=== PATIENT | female | born 1965 | race Caucasian/White ===

== ENCOUNTER 2019-10-14 21:15 | Emergency (ER) | payer SELFPAY ==
[2019-10-14 21:27] VITALS: BP 143/96; PULSE 90; RESP 18; TEMP 37.1; O2SAT 95; BMI 30.4
--- NOTE | 2019-10-14 22:00 | PC.NURSE ---
Introduced self to patient and initiated vital signs. Pt is A&O x 4 and agreeable. Pt states that the reason for the ER visit today is due to ear pain. Pt also complaining of dizziness. Reassured patient of needs and will continue to monitor. Provider at bedside.
--- NOTE | 2019-10-14 22:02 | W.ED.GENADLT ---
HPI - General Adult General: Chief complaint: Ear Stated complaint: earache/n/v Time Seen by Provider: 10/14/19 21:54 History of Present Illness: HPI narrative: Patient with a history of earache started 3 to 4 days ago continually getting worse through the last 3 days now hurts pretty bad affecting her balance. MD complaint: Ear infection Onset (ago): day(s) Location: left Radiation: non-radiation Severity scale (1-10): 8 Quality: aching Pain Consistency: constant Relieving factors: none Exacerbating factors: none Associated symptoms: Reports no associated symptoms; Deny chest pain, dyspnea, headache(s), nausea, rash or vomiting Review of Systems Const: Denies: fever, chills or body aches Eyes: Denies: change in vision or blurry vision ENMT: Reports: ear pain (Left); Denies: throat pain or nasal congestion Card: Denies: chest pain or shortness of breath on exertion Resp: Denies: shortness of breath, productive cough or non-productive cough GI: Denies: abdominal pain, nausea or vomiting Musc: Denies: extremity pain Skin/Breast: Denies: rash Neuro: Reports: dizziness (When up and about); Denies: headache Psych: Denies: anxiety or depression Tyler/Lymph: Denies: easy bruising PFSH ED PFSH: Statuses (acute, chronic, etc) shown below reflect problem list status as previously entered and may not be historically accurate Social History Smoking and tobacco status: never smoked Physical Exam Const: COMMON NORMALS: no apparent distress, average body habitus and oriented x3 HENMT: COMMON NORMALS: normocephalic HEAD & SCALP: normal to inspection and normocephalic FACE & SINUS: normal facial exam EXTERNAL AUDITORY CANAL: EAC abnormal EAC laterality: left Details: edema, EAC tenderness and otic discharge TYMPANIC MEMBRANE: TM normal on the right and TM normal on the left (Whitish discharge all about the tympanic membrane) Eye: COMMON NORMALS: conjunctivae normal GENERAL EYE: normal appearance of both eyes CONJUNCTIVA: Yes conjunctivae normal Neck/C-Spine: COMMON NORMALS: no JVD Chest: COMMONS NORMALS: inspection of chest normal Resp: COMMON NORMALS: normal respiratory effort and clear to auscultation bilaterally AUSCULTATION: clear to auscultation bilaterally Cardio: COMMON NORMALS: no JVD, regular rate and regular rhythm RATE: regular rate RHYTHM: regular rhythm GI: COMMON NORMALS: normal to inspection, nondistended, normoactive bowel sounds Extremity: COMMON NORMALS: normal to inspection and full ROM Neuro: COMMON NORMALS: oriented x3 Course Vital Signs: Vital signs: Vital Signs Temperature 98.7 F 10/14/19 21:27 Pulse Rate 90 10/14/19 21:27 Respiratory Rate 18 10/14/19 21:27 Blood Pressure 143/96 10/14/19 21:27 Pulse Oximetry 95 10/14/19 21:27 Coding Level of Care Code ED Media Services Director for Edgar Abdi
[2019-10-14] MEDS: acetaminophen-codeine 300-30mg Tablet 1 TAB PO (23:04)
[2019-10-14] MEDS: ciprofloxacin-dexameth Otic Susp 7.5 mL Btl 4 DROP EAR-LEFT (23:08)
[2019-10-14 23:40] VITALS: BP 109/79; PULSE 109; O2SAT 95
== END 2019-10-14 23:40 | disposition home or self-care (01) ==
PROVIDERS: Emergency Provider Nurse Practitioner Family
DX: H92.02 Otalgia, left ear (principal); R11.2 Nausea with vomiting, unspecified
CPT/HCPCS: 99281; 99282; J0696; J2001

== ENCOUNTER 2019-11-12 07:47 | Outpatient (CLI) | payer SELFPAY ==
--- NOTE | 2019-11-12 08:10 | MR_ITS ---
WS: [id number] MRI CERVICAL SPINE NONCONTRAST TECHNIQUE: Sagittal T1, T2 and STIR imaging. Axial T2, gradient, and fiesta imaging. CLINICAL INFORMATION: NECK PAIN COMPARISON: None. FINDINGS: Straightening of the normal cervical lordosis. Mild disc bulging C5-6. Cord signal is normal. C2-C3: Normal. C3-C4: Normal. C4-C5: No significant disc bulging. Mild right bony foraminal narrowing. Mild facet arthropathy. Spin al canal is patent. C5-C6: Disc osteophyte complex with endplate ridging. Small central protrusion with mild central erik l stenosis. Mild bilateral bony foraminal narrowing. Mild facet arthropathy. C6-C7: Disc osteophyte complex endplate ridging. Mild bilateral bony foraminal narrowing. Spinal erik l is patent. C7-T1: Normal. Visualized brain stem structures: Normal. Prevertebral soft tissues: Normal. MR/MR cervical spin wo con* [id number] IMPRESSION: 1. Straightening of the normal cervical lordosis with mild disc bulging worse at C5-C6. 2. Disc osteophyte complex C5-C6 with a small central disc osteophyte protrusi on. Mild central canal stenosis. 3. Mild bony foraminal narrowing more prominent at right C4-C5, bilateral C5-C 6, and left C6-C7.
--- NOTE | 2019-11-12 08:10 | MR_ITS ---
WS: [id number] MRI LUMBAR SPINE NONCONTRAST TECHNIQUE: Sagittal T1, T2 and STIR imaging. Axial T1 and T2 imaging. CLINICAL INFORMATION: LUBOSACRAL PAIN COMPARISON: None. FINDINGS: Mild lumbar curve. No acute compression. No high-grade central canal stenosis. Mild endplate degenera tive changes L4-5. L1-L2: Prominent left foraminal protrusion with moderate left foraminal narrowing and contact of the left L1 nerve root. Spinal canal and foramen are patent. L2-L3: Small left foraminal protrusion with mild left foraminal narrowing and slight contact of the e xiting left L2 nerve root. Spinal canal and right foramen are patent. L3-L4: Mild annular bulging with slight effacement of ventral thecal sac. Narrowing of the right suba rticular recess. Small right foraminal protrusion contacts the exiting right L3 nerve root with moder ate right foraminal narrowing. Left foramen is patent. L4-L5: Endplate degenerative changes. Mild annular bulging. Spinal canal and foramen are patent. Mild facet arthropathy. L5-S1: Tiny central protrusion with slight encroachment on the traversing S1 nerve roots without sign ificant impingement. Osteophytic ridging. Mild to moderate left and no significant right foraminal na rrowing. Visualized pelvic bony structures: Normal. Paravertebral soft tissues: Normal. MR/MR lumbar spine wo con* [id number] IMPRESSION: 1. Mild lumbar curve. No acute compression. 2. Prominent left proximal foraminal protrusion L1-2 with mild to moderate lef t foraminal narrowing contacts the exiting left L1 nerve root. 3. Small left foraminal protrusion L2-3 with mild left foraminal narrowing and slight contact of the exiting left L2 nerve root. 4. Small right foraminal protrusion L3-4 contacts the exiting L3 nerve root wi th moderate right foraminal narrowing. 5. Narrowing of the right L3-4 subarticular recess with encroachment traversin g right L4 nerve root. 6. Tiny shallow central protrusion L5-S1 with slight contact of the left S1 ne rve root. Mild to moderate left L5-S1 foraminal narrowing.
--- NOTE | 2019-11-12 08:10 | MR_ITS ---
WS: [id number] MRI RIGHT SHOULDER NONCONTRAST TECHNIQUE: Sagittal T2, coronal T1, T2 and proton density imaging. Axial gradient PDE imaging. CLINICAL INFORMATION: SHOULDER PAIN COMPARISON: Chest radiograph 2010 FINDINGS: Lobulated T2 hyperintense lesion with heterogeneous signal abnormality involving the proximal humerus measuring 5.2 x 1.8 cm consistent with benign chondroma. This appears to have been present on the est radiograph 2009. Associated susceptibility artifact. No acute fractures. Moderate degenerative arthritis at the AC joint. Mild downsloping of the acromion. Slight undersurfa ce spurring. Rotator cuff is intact. Normal supraspinatus. Tiny undersurface tear at the far anterior supraspinous insertion. Normal infraspinatus. Normal teres minor. Normal subscapularis. No full-thic kness rotator cuff tears. Biceps tendon is intact within the bicipital groove. Normal biceps labral anchor. Glenoid labrum appe ars grossly normal. Normal soft tissues. MR/MR shoulder RT wo con* [id number] IMPRESSION: 1. Prominent chondromalacia involving the proximal humeri as was present in 06 07. 2. Moderate degenerative arthritis AC joint with mild downsloping of the acrom ion. Rotator cuff is intact. No full-thickness rotator cuff tears. 3. Tiny undersurface tear at the far anterior supraspinatus insertion. 4. Normal biceps tendon in the bicipital groove. 5. Glenoid labrum appears grossly intact.
== END 2019-11-12 07:48 | disposition home or self-care (01) ==
LOC: RADWPI 07:51
PROVIDERS: PCP Nurse Practitioner Family; Visit Provider Nurse Practitioner Family
DX: M94.211 Chondromalacia, right shoulder (principal); M19.011 Primary osteoarthritis, right shoulder; M51.26 Other intervertebral disc displacement, lumbar region; M51.27 Other intervertebral disc displacement, lumbosacral region; M50.222 Other cervical disc displacement at C5-C6 level; M25.511 Pain in right shoulder
CPT/HCPCS: 72141; 72148; 73221

== ENCOUNTER → 2019-11-25 13:51 | Outpatient (BNVA) | payer SELFPAY | PROVIDERS: PCP Nurse Practitioner Family; Referring Provider Nurse Practitioner Family; Visit Provider Orthopaedic Surgery | DX: M25.511 Pain in right shoulder (principal) | CPT/HCPCS: 73030 ==

== ENCOUNTER 2020-01-08 14:51 | Emergency (ER) | payer SELFPAY ==
[2020-01-08 15:02] VITALS: BP 146/88; PULSE 96; RESP 15; TEMP 37; O2SAT 95; BMI 31.8
--- NOTE | 2020-01-08 15:24 | XR_ITS ---
WS: [id number] ANKLE RIGHT TECHNIQUE: 3 views of the right ankle CLINICAL INFORMATION: fall/pain COMPARISON: None. FINDINGS: Mild soft tissue edema. Tiny avulsion at the tip of the medial malleolus. Normal ankle mortise. Achil les insertion enthesophyte. XR/XR ankle RT min 3V* [id number] IMPRESSION: Tiny avulsion at the tip of the medial malleolus.
--- NOTE | 2020-01-08 16:20 | ED_ITS ---
HPI - Extremity Injury (Lower) General: Chief Complaint: Extremity Injury, Lower Stated Complaint: right leg pain Time Seen by Provider: 01/08/20 16:01 Source: patient Mode of arrival: ambulatory Limitations: no limitations History of Present Illness: HPI Narrative: Patient is a 54-year-old female presents to ED today with complaints of right ankle pain after sliding down a ramp. States she tripped over her dog and then slid down. She is ambulatory but with a limp. No other injury sustained. MD complaint: ankle injury Onset (ago): hour(s) Injury: Left: ankle Type of Injury: inversion Place: home Severity: moderate Relieving factors: immobilization Exacerbating factors: weight bearing, movement and palpation Context: fall and other (twisted) Associated symptoms: Reports no associated symptoms Other symptoms: none Review of Systems Card: Denies: chest pain, palpitations, irregular heart rhythm, edema, lightheadedness, syncope or pre-syncope Resp: Denies: shortness of breath GI: Denies: nausea or vomiting Musc: Reports: joint pain and joint swelling; Denies: neck pain, back pain, extremity pain or extremity swelling Neuro: Denies: numbness in extremities or changes in sensation PFS ED PFSH: Social History Smoking and tobacco status: never smoked Alcohol intake: never Lives independently: Yes Household members: spouse Housing: House Marital status: Current occupational status: employed Current occupation: [employer] Current occupational exposures/hazards: No History of recent travel: No Current gender identity: Female Physical Exam Const: COMMON NORMALS: no apparent distress, oriented x3, no limitations, healthy appearing and alert ORIENTATION/CONSCIOUSNESS: Yes oriented to person, Yes oriented to place and Yes oriented to time Neck/C-Spine: CERVICAL SPINE: Yes cervical ROM normal, No pain with cervical ROM, No cervical spine tenderness and No paracervical muscle tenderness Resp: COMMON NORMALS: normal respiratory effort and clear to auscultation bilaterally AUSCULTATION: clear to auscultation bilaterally Cardio: COMMON NORMALS: regular rate and regular rhythm RATE: regular rate RHYTHM: regular rhythm Back/Pelvis: COMMON NORMALS: thoracic and lumbar spine normal to inspection, no thoracic nor lumbar tenderness and thoraco-lumbar ROM normal Extremity: OTHER: TTP, swelling, and beginning ecchymosis to R lateral malleolus Neuro: GUSTAVO COMA SCALE: document GCS findings Gustavo coma scale eye opening: Spontaneous Gustavo coma scale verbal response: Orientated Gustavo coma scale motor response: Obey commands [place] coma scale total score: 15 COMMON NORMALS: oriented x3, moves all extremities, no focal motor deficits and no sensory deficits noted SENSORIUM/ORIENTATION: Yes alert, Yes oriented to person, Yes oriented to place and Yes oriented to time Course Vital Signs: Vital signs: Vital Signs Temperature 98.6 F 01/08/20 15:02 Pulse Rate 96 01/08/20 15:02 Respiratory Rate 15 01/08/20 15:02 Blood Pressure 146/88 01/08/20 15:02 Pulse Oximetry 95 01/08/20 15:02 MDM - Extremity Injury (Lower) Imaging Data^: R ankle XR: Radiologist's impression: [address] [place] [address] XRay Report Signed Patient: Ryanne Harvey Unit #: [id number] : [id number] Age/Sex: 54 / F ADM Date: 01/08/20 Loc: ER Room/Bed: Attending Dr: Ordering Provider/Ordering MD: Tanner Borja DO Date of Service: 01/08/20 Procedure(s): XR ankle RT min 3V* [id number] Accession Number(s): [id number] Report Number: [id number] WS: [id number] ANKLE RIGHT TECHNIQUE: 3 views of the right ankle CLINICAL INFORMATION: fall/pain COMPARISON: None. FINDINGS: Mild soft tissue edema. Tiny avulsion at the tip of the medial malleolus. Normal ankle mortise. Achilles insertion enthesophyte. XR/XR ankle RT min 3V* [id number] IMPRESSION: Tiny avulsion at the tip of the medial malleolus. Dictated By: Jake Rojo MD Signed By: Jake Rojo MD Signed Date/Time: 01/08/201650 DD/ 49 Discharge Plan Discharge Patient Disposition: Home, Self-Care Clinical Impression: Avulsion fracture of medial malleolus Qualifiers: Encounter type: initial encounter Fracture type: closed Laterality: right Qualified Code(s): S82.51XA - Displaced fracture of medial malleolus of right tibia, initial encounter for closed fracture Condition: Stable Prescriptions: No Action No Known Home Medications RF: 0 Discharge Orders: Discharge Order (Routine); Ordered 01/08/20 Ordered By: Anne Jane Referrals: [facility] [Other] Tracey Rodgers FNP [Primary Care Provider] - Discharge Activity: Use walker/crutches as instructed Patient Instructions: Ankle Fracture (ED) Activity Restrictions/Additional Instructions: Case management will contact you to set you up with orthopedics. Coding Level of Care Code ED Hollow Handle Knife Assembler for Edgar Fwd Exam Detailed
--- NOTE | 2020-01-09 09:08 | DCPLANNER ---
commercial lines account manager had message to schedule a follow up appointment for patient with ortho. commercial lines account manager called the ortho clinic, spoke with Pat. commercial lines account manager gave clinic patients information to clinic, was told that patients information would be printed and reviewed. Clinic will call residential case manager and patient with appointment information.
--- NOTE | 2020-01-13 09:08 | DCPLANNER ---
Patient has a follow up appointment scheduled for Monday, January 13, [address] at 9:[address] Newby. Clinic will call patient with appointment information.
--- NOTE | 2020-02-03 15:19 | DCPLANNER ---
Patient did attend appointment scheduled for 01.13.20 with ortho.
== END 2020-01-08 17:20 | disposition home or self-care (01) ==
PROVIDERS: Emergency Provider Physician Assistant; PCP Nurse Practitioner Family
DX: S82.51XA Displaced fracture of medial malleolus of right tibia, initial encounter for closed fracture (principal); W01.0XXA Fall on same level from slipping, tripping and stumbling without subsequent striking against object, initial encounter
CPT/HCPCS: 12345; 29515; 73610; 99282; 99283

== ENCOUNTER → 2020-01-13 10:29 | Outpatient (BNVA) | payer SELFPAY | PROVIDERS: PCP Nurse Practitioner Family; Visit Provider Podiatrist Foot & Ankle Surgery | DX: S82.891A Other fracture of right lower leg, initial encounter for closed fracture (principal); M79.604 Pain in right leg; S82.444A Nondisplaced spiral fracture of shaft of right fibula, initial encounter for closed fracture; S82.54XA Nondisplaced fracture of medial malleolus of right tibia, initial encounter for closed fracture; X58.XXXA Exposure to other specified factors, initial encounter | CPT/HCPCS: 73590 ==

== ENCOUNTER 2020-01-13 12:59 | Outpatient (CLI) | payer SELFPAY | END 2020-01-13 13:00 | disposition home or self-care (01) | LOC: SPT 12:59 | PROVIDERS: PCP Nurse Practitioner Family; Visit Provider Podiatrist Foot & Ankle Surgery | DX: Z46.89 Encounter for fitting and adjustment of other specified devices (principal); S82.891D Other fracture of right lower leg, subsequent encounter for closed fracture with routine healing; X58.XXXD Exposure to other specified factors, subsequent encounter | CPT/HCPCS: L4361 ==

== ENCOUNTER → 2020-01-28 09:28 | Outpatient (BNVA) | payer SELFPAY | PROVIDERS: PCP Nurse Practitioner Family; Visit Provider Podiatrist Foot & Ankle Surgery | DX: S82.839A Other fracture of upper and lower end of unspecified fibula, initial encounter for closed fracture (principal); M79.604 Pain in right leg; M25.571 Pain in right ankle and joints of right foot; S82.54XA Nondisplaced fracture of medial malleolus of right tibia, initial encounter for closed fracture; X58.XXXA Exposure to other specified factors, initial encounter | CPT/HCPCS: 73590; 73610 ==

== ENCOUNTER → 2020-02-19 15:20 | Outpatient (BNVA) | payer SELFPAY | PROVIDERS: PCP Nurse Practitioner Family; Visit Provider Podiatrist Foot & Ankle Surgery | DX: S82.54XA Nondisplaced fracture of medial malleolus of right tibia, initial encounter for closed fracture (principal); S82.401A Unspecified fracture of shaft of right fibula, initial encounter for closed fracture; X58.XXXA Exposure to other specified factors, initial encounter | CPT/HCPCS: 73590; 73610 ==

== ENCOUNTER → 2020-03-11 09:39 | Outpatient (BNVA) | payer SELFPAY | PROVIDERS: PCP Nurse Practitioner Family; Visit Provider Podiatrist Foot & Ankle Surgery | DX: S82.54XD Nondisplaced fracture of medial malleolus of right tibia, subsequent encounter for closed fracture with routine healing (principal); S82.831D Other fracture of upper and lower end of right fibula, subsequent encounter for closed fracture with routine healing; W01.0XXD Fall on same level from slipping, tripping and stumbling without subsequent striking against object, subsequent encounter; M25.571 Pain in right ankle and joints of right foot | CPT/HCPCS: 73590; 73610 ==

== ENCOUNTER → 2020-04-01 15:12 | Outpatient (BNVA) | payer SELFPAY | PROVIDERS: PCP Nurse Practitioner Family; Visit Provider Podiatrist Foot & Ankle Surgery | DX: S82.54XD Nondisplaced fracture of medial malleolus of right tibia, subsequent encounter for closed fracture with routine healing; M25.571 Pain in right ankle and joints of right foot; S82.831D Other fracture of upper and lower end of right fibula, subsequent encounter for closed fracture with routine healing; W01.0XXD Fall on same level from slipping, tripping and stumbling without subsequent striking against object, subsequent encounter | CPT/HCPCS: 73610 ==

== ENCOUNTER 2020-05-02 19:39 | Emergency (ER) | payer SELFPAY ==
[2020-05-02 19:59] VITALS: BP 118/81; PULSE 104; RESP 16; TEMP 36.9; O2SAT 98; BMI 30.1
--- NOTE | 2020-05-02 20:42 | W.ED.SKABFB ---
HPI - Skin/Abscess/Foreign Bdy General: Chief complaint: Skin/Abscess/Foreign Body Stated complaint: rash Time Seen by Provider: 05/02/20 20:41 History of Present Illness: HPI narrative: Patient comes to the ED with pruritic rash. Symptoms started 2 days ago after being exposed to some poison aggie. Rashes on both right and left upper and lower extremities and neck. She has tried various vigc-ajz-ihfqdxw remedies such as calamine lotion, hydrocortisone cream and Benadryl. They have not provided any relief and rash continues to spread. Denies any shortness of breath, fever, chills, nausea/vomiting, bladder or bowel symptoms. Associated symptoms: Deny chills, fever(s), nausea or vomiting Review of Systems Const: Denies: fever(s), chills or fatigue Eyes: Denies: change in vision or eye discomfort ENMT: Denies: throat pain, odynophagia, nasal discharge or nasal congestion Card: Denies: chest pain, palpitations, edema, swelling of feet/ankles, dyspnea on exertion or orthopnea Resp: Denies: dyspnea, productive cough or non-productive cough GI: Denies: abdominal pain, nausea, vomiting, diarrhea, constipation or hematochezia : Denies: flank pain, dysuria or hematuria Musc: Denies: neck pain, back pain or extremity swelling Skin/Breast: Reports: rash (pruritic rash) and pruritus; Denies: new lesions Neuro: Denies: headache(s), numbness in extremities or weakness in extremities PFSH ED PFSH: Medical History Hyperlipemia Surgical History Hx of appendectomy Hx of tubal ligation Family History Father , age 33 Cancer Social History Smoking and tobacco status: never smoked Alcohol intake: never Substance/Drug Use: never Lives independently: Yes Household members: spouse Housing: House Marital status: Current occupational status: employed Current occupation: [employer] Current occupational exposures/hazards: No History of recent travel: No Current gender identity: Female Physical Exam Const: COMMON NORMALS: no acute distress, patient oriented x3, healthy appearing and alert GENERAL APPEARANCE: cooperative and comfortable HENMT: COMMON NORMALS: normocephalic HEAD & SCALP: normocephalic MOUTH: Normal oral and palatal mucosa present THROAT: posterior oropharynx normal and uvula midline Neck/C-Spine: COMMON NORMALS: supple GENERAL: Yes normal visual inspection Resp: COMMON NORMALS: normal respiratory effort, No retractions, No use of accessory muscles and clear to auscultation bilaterally AUSCULTATION: clear to auscultation bilaterally Cardio: COMMON NORMALS: regular rate, regular rhythm, S1 normal heart sound present, S2 normal heart sound present, No gallops present (Cardio), No clicks present (Cardio), No murmurs present (Cardio) and Peripheral pulses 2+ throughout RATE: regular rate RHYTHM: regular rhythm HEART SOUNDS: S1 normal heart sound present and S2 normal heart sound present PERIPHERAL PULSES: Peripheral pulses 2+ throughout GI: COMMON NORMALS: Normal to inspection, nondistended, normoactive bowel sounds present, Soft to palpation, non-tender and no masses PALPATION: Yes Soft to palpation : COMMON NORMALS: Yes no CVA tenderness BLADDER/KIDNEY EXAM: Yes no CVA tenderness Back/Pelvis: COMMON NORMALS: no CVA tenderness Extremity: NARRATIVE EXTREMITY EXAM: Patient just has pruritic rash on both upper and lower left and right extremities. GENERAL: Yes normal exam except as noted Neuro: COMMON NORMALS: patient oriented x3 and moves all extremities SENSORIUM/ORIENTATION: Yes alert Skin: NARRATIVE SKIN EXAM: Patient has erythemic, linear and pruritic rash on both right and left upper and lower extremities and on her neck. A couple of the lesions on the arm and leg appear to have some weeping and oozing. Rash looks very much like poison aggie or sumac contact dermatitis. Course Vital Signs: Vital signs: Vital Signs Temperature 98.5 F 05/02/20 19:59 Pulse Rate 100 05/02/20 21:37 Respiratory Rate 18 05/02/20 21:37 Blood Pressure 127/83 05/02/20 21:37 Pulse Oximetry 98 05/02/20 21:37 MDM - Skin/Abscess/Foreign Bdy MDM Narrative: Medical decision making narrative: Patient is a 54-year-old female who comes to the ED with pruritic rash after poison aggie contact. Patient was not in any acute distress or pain. Rash was on both right and left upper and lower extremities and on her neck. Rash appeared like poison aggie and was linear raised erythema. Patient was given IM triamcinolone and sent home with prescription of prednisone. She was told to follow-up with her PCP in 7 to 10 days. Return to ED precautions given. Patient understood and agreed with plan. Discharge Plan Discharge Patient Disposition: Home Clinical Impression: Allergic dermatitis due to poison aggie Condition: Stable Prescriptions: New prednisone 50 mg tablet 50 mg PO DAILY 5 Days Qty: 5 RF: 0 No Action (DME) CAM WALKER Qty: 1 RF: 0 Discharge Orders: Discharge Order (Routine); Ordered 05/02/20 Ordered By: Pedro Sr Referrals: Tracey Rodgers FNP [Primary Care Provider] - Discharge Diet: Regular Discharge Activity: Resume usual activity Patient Instructions: Poison Aggie, [place], and [place] - Adult Activity Restrictions/Additional Instructions: Follow-up with medical provider as directed in 10 days. Take medications as prescribed. Return to the ER or your medical provider if condition worsens. Please read and understand discharge instructions. If any questions, please ask. Discharge Date/Time: 05/02/20 21:39 Coding Level of Care Code ED Occupational Therapy Aide for Edgar Fwd Exam Comprehensive
[2020-05-02] MEDS: triamcinolone 40 mg/mL SDV IM (21:16)
[2020-05-02 21:37] VITALS: BP 127/83; PULSE 100; RESP 18; O2SAT 98
== END 2020-05-02 21:39 | disposition home or self-care (01) ==
PROVIDERS: Emergency Provider Physician Assistant; PCP Nurse Practitioner Family
DX: L23.7 Allergic contact dermatitis due to plants, except food (principal); E78.5 Hyperlipidemia, unspecified
CPT/HCPCS: 12345; 96372; 99281; 99283; J3301

== ENCOUNTER → 2021-04-13 13:32 | Outpatient (BNVA) | payer OTHER, SELFPAY | PROVIDERS: PCP Nurse Practitioner Family; Visit Provider Nurse Practitioner Family | DX: Z20.822 Contact with and (suspected) exposure to COVID-19 (principal) | CPT/HCPCS: 87635 ==

== ENCOUNTER → 2021-10-25 11:14 | Outpatient (BNVA) | payer MEDICAID, SELFPAY | PROVIDERS: Visit Provider Nurse Practitioner Family | DX: R53.83 Other fatigue (principal); Z78.0 Asymptomatic menopausal state; G47.00 Insomnia, unspecified; Z13.6 Encounter for screening for cardiovascular disorders | CPT/HCPCS: 80053; 80061; 82306; 82607; 83721; 83735; 84443; 84550; 85025; 85651; 86038; 86140; 86200; 86431 ==

== ENCOUNTER → 2021-11-09 10:03 | Outpatient (BNVA) | payer MEDICAID, SELFPAY | PROVIDERS: Visit Provider Podiatrist Foot & Ankle Surgery | DX: M25.572 Pain in left ankle and joints of left foot (principal); Z87.81 Personal history of (healed) traumatic fracture | CPT/HCPCS: 73610 ==

== ENCOUNTER → 2021-11-22 12:39 | Outpatient (BNVA) | payer MEDICAID, SELFPAY | PROVIDERS: Visit Provider Internal Medicine | DX: M25.50 Pain in unspecified joint (principal); R76.8 Other specified abnormal immunological findings in serum; E55.9 Vitamin D deficiency, unspecified; Z11.59 Encounter for screening for other viral diseases | CPT/HCPCS: 99204 ==

== ENCOUNTER 2021-11-22 14:25 | Outpatient (CLI) | payer MEDICAID, SELFPAY ==
--- NOTE | 2021-11-22 14:47 | XRR_ITS ---
PROCEDURE INFORMATION: Exam: XR Lumbosacral Spine Exam date and time: 11/22/2021 2:47 PM Age: 56 years old Clinical indication: Low back pain; Additional info: M25.50 - pain in unspecified joint TECHNIQUE: Imaging protocol: XR of the lumbosacral spine. Views: 2 or 3 views. COMPARISON: MR lumbar spine wo con* [id number] 11/12/2019 10:20 AM FINDINGS: Bones/joints: Minimal lumbar spine levocurvature . Multilevel wnxe-xy-kysdcnco disc space narrowing and productive degenerative endplate changes throughout the lumbar spine. Soft tissues: Unremarkable. XR/XR lumbar spine 2-3V* [id number] IMPRESSION: 1. Minimal lumbar spine levocurvature . 2. Multilevel uoru-wl-tucdlpbr disc space narrowing and productive degenerative endplate changes throughout the lumbar spine.
--- NOTE | 2021-11-22 14:47 | XRR_ITS ---
PROCEDURE INFORMATION: Exam: XR Bilateral Sacroiliac Joints Exam date and time: 11/22/2021 2:47 PM Age: 56 years old Clinical indication: Condition or disease; Other: Psoriasis; Additional info: L40.9 - psoriasis, unspecified TECHNIQUE: Imaging protocol: XR Bilateral XR of the sacroiliac joints. Views: 3 or more views. COMPARISON: CR Hip 2-3v LEFT wwo Pelv* [id number] 05/13/2019 2:19 PM FINDINGS: Bones/joints: Minimal osteoarthritis at the inferior aspect of the right sacroiliac joint. Soft tissues: Normal. XR/XR sacroiliac jts m 3V [id number] IMPRESSION: Minimal osteoarthritis at the inferior aspect of the right sacroiliac joint.
--- NOTE | 2021-11-22 14:47 | XRR_ITS ---
PROCEDURE INFORMATION: Exam: XR Left Hand Exam date and time: 11/22/2021 2:47 PM Age: 56 years old Clinical indication: Pain; Hand; Bilateral; Additional info: R79.89 - other specified abnormal findings of blood chemi. . . TECHNIQUE: Imaging protocol: XR Left hand. Views: 1 or 2 views. COMPARISON: No relevant prior studies available. FINDINGS: Bones/joints: Minimal 2nd and 3rd distal interphalangeal joint osteoarthritis. Soft tissues: Normal. XR/XR hand LT 2V [id number] IMPRESSION: Minimal 2nd and 3rd distal interphalangeal joint osteoarthritis.
--- NOTE | 2021-11-22 14:47 | XRR_ITS ---
PROCEDURE INFORMATION: Exam: XR Right Hand Exam date and time: 11/22/2021 2:47 PM Age: 56 years old Clinical indication: Pain; Hand; Bilateral; Additional info: R79.89 - other specified abnormal findings of blood chemi. . . TECHNIQUE: Imaging protocol: XR Right hand. Views: 1 or 2 views. COMPARISON: No relevant prior studies available. FINDINGS: Bones/joints: Mild 2nd and 3rd distal interphalangeal joint osteoarthritis. Soft tissues: Normal. XR/XR hand RT 2V [id number] IMPRESSION: Mild 2nd and 3rd distal interphalangeal joint osteoarthritis.
[2021-11-22 16:13] LABS: Erythrocyte Sedimentation Rate 29 mm/hr (0-15)
[2021-11-22 16:31] LABS: Creatine Phosphokinase 42 U/L (26-192)
[2021-11-22 20:34] LABS: Hepatitis B Core AB, Total Non-Reactive (Nonreactive); Hepatitis B Surface Antigen Non-Reactive (Nonreactive); Hepatitis C Virus Antibody Non-Reactive (Nonreactive)
[2021-11-23 14:17] LABS: Cyclic Citrullinated Peptide <16 UNITS
[2021-11-23 14:26] LABS: COMPLEMENT, TOTAL (CH50) >60 U/mL (31-60)
[2021-11-23 15:22] LABS: COMPLEMENT COMPONENT C3C 172 mg/dL (83-193); COMPLEMENT COMPONENT C4C 27 mg/dL (15-57)
[2021-11-23 16:27] LABS: THYROID PEROXIDASE ANTIBODIES 3 IU/mL (<9)
[2021-11-24 10:44] LABS: ANA PATTERN Nuclear, Speckled; ANA SCREEN, IFA POSITIVE (NEGATIVE); ANA TITER 1:40 titer
[2021-11-24 12:34] LABS: DNA AB (DS) CRITHIDIA,IFA NEGATIVE (NEGATIVE)
[2021-11-24 16:17] LABS: CENTROMERE B ANTIBODY <1.0 NEG AI (<1.0 NEG); JO-1 ANTIBODY <1.0 NEG AI (<1.0 NEG); RNP ANTIBODY <1.0 NEG AI (<1.0 NEG); SCL-70 ANTIBODY <1.0 NEG AI (<1.0 NEG); SJOGREN'S ANTIBODY (SS-A) <1.0 NEG AI (<1.0 NEG); SM ANTIBODY <1.0 NEG AI (<1.0 NEG); SS-B <1.0 NEG AI (<1.0 NEG)
== END 2021-11-22 14:26 | disposition home or self-care (01) ==
LOC: LAB 14:29
PROVIDERS: PCP Nurse Practitioner Family; Visit Provider Internal Medicine
DX: R78.89 Finding of other specified substances, not normally found in blood (principal); R76.8 Other specified abnormal immunological findings in serum; M25.50 Pain in unspecified joint; L40.9 Psoriasis, unspecified; M48.061 Spinal stenosis, lumbar region without neurogenic claudication; M79.642 Pain in left hand; M19.041 Primary osteoarthritis, right hand
CPT/HCPCS: 72100; 72202; 73120; 82550; 83516; 85651; 86160; 86162; 86200; 86235; 86255; 86376; 86431; 86704; 86803; 87340

== ENCOUNTER → 2021-12-08 09:21 | Outpatient (BNVA) | payer MEDICAID, SELFPAY | PROVIDERS: PCP Nurse Practitioner Family; Visit Provider Internal Medicine | DX: M54.2 Cervicalgia (principal); R76.8 Other specified abnormal immunological findings in serum; Z79.899 Other long term (current) drug therapy | CPT/HCPCS: 99214 ==

== ENCOUNTER → 2021-12-13 08:19 | Outpatient (BNVA) | payer MEDICAID, SELFPAY | PROVIDERS: PCP Nurse Practitioner Family; Referring Provider Internal Medicine; Visit Provider Anesthesiology Pain Medicine | DX: G89.29 Other chronic pain (principal); M51.16 Intervertebral disc disorders with radiculopathy, lumbar region; M47.816 Spondylosis without myelopathy or radiculopathy, lumbar region; M79.604 Pain in right leg; M79.605 Pain in left leg; Z87.891 Personal history of nicotine dependence | CPT/HCPCS: 99204 ==

== ENCOUNTER 2022-01-02 10:21 | Outpatient (CLI) | payer MEDICAID, SELFPAY ==
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
== END 2022-01-02 10:22 | disposition home or self-care (01) ==
PROVIDERS: PCP Nurse Practitioner Family; Visit Provider Anesthesiology Pain Medicine
DX: M48.061 Spinal stenosis, lumbar region without neurogenic claudication (principal); M51.26 Other intervertebral disc displacement, lumbar region
CPT/HCPCS: 72148

== ENCOUNTER → 2022-01-10 09:06 | Outpatient (BNVA) | payer MEDICAID, SELFPAY | PROVIDERS: PCP Nurse Practitioner Family; Visit Provider Anesthesiology Pain Medicine | DX: M79.604 Pain in right leg (principal); M79.605 Pain in left leg; Z87.891 Personal history of nicotine dependence; G89.29 Other chronic pain; M51.16 Intervertebral disc disorders with radiculopathy, lumbar region; M47.816 Spondylosis without myelopathy or radiculopathy, lumbar region | CPT/HCPCS: 99214 ==

== ENCOUNTER 2022-01-10 10:10 | Outpatient (CLI) | payer MEDICAID, SELFPAY ==
--- NOTE | 2022-01-10 10:31 | MM_ITS ---
WS: [email or web address] SCREENING 3D TOMOSYNTHESIS DIGITAL MAMMOGRAM WITH CAD HISTORY: SCREENING COMPARISON: None available. Bilateral CC and MLO views submitted. Computer aided detection analyzed. Breast composition: There are scattered areas of fibroglandular density. No suspicious masses, microc alcifications or architectural distortion. MM/[place] [id number] IMPRESSION: BI-RADS: 2-Benign FOLLOW UP: 1 Year Follow-up
--- NOTE | 2022-01-10 15:00 | XR_ITS ---
WS: [email or web address] DEXA (DUAL ENERGY X-RAY ABSORPTIOMETRY) Bone mineral density was performed using a Quibb machine. HISTORY: Z78.0 - Asymptomatic menopausal state COMPARISON: None available. Lumbar spine BMD (L1-L4): 0.930 g/cm2 T score: -2.1 Z score: -2.0 Total hip BMD: Left: 0.769 g/cm2. T score: -1.9 Z score: -1.7 Right: 0.797 g/cm2. T score: -1.7 Z score: -1.5 10 year probability of a major osteoporotic fracture is 18%. XR/XR DEXA axial skeleton* [id number] IMPRESSION: OSTEOPENIA based upon the WHO classification for females.
== END 2022-01-10 10:11 | disposition home or self-care (01) ==
PROVIDERS: PCP Nurse Practitioner Family; Visit Provider Nurse Practitioner Family
DX: Z12.31 Encounter for screening mammogram for malignant neoplasm of breast (principal); Z78.0 Asymptomatic menopausal state; Z13.820 Encounter for screening for osteoporosis
CPT/HCPCS: 77063; 77067; 77080

== ENCOUNTER → 2022-01-23 08:55 | Outpatient (BNVA) | payer MEDICAID, SELFPAY | PROVIDERS: PCP Nurse Practitioner Family; Visit Provider Nurse Practitioner Family | DX: R79.89 Other specified abnormal findings of blood chemistry (principal); E78.5 Hyperlipidemia, unspecified | CPT/HCPCS: 80061; 82306; 83721; 84443 ==

== ENCOUNTER → 2022-01-25 09:18 | Outpatient (BNVA) | payer MEDICAID, SELFPAY | PROVIDERS: PCP Nurse Practitioner Family; Visit Provider Podiatrist Foot & Ankle Surgery | DX: M20.41 Other hammer toe(s) (acquired), right foot (principal); M20.42 Other hammer toe(s) (acquired), left foot; M21.621 Bunionette of right foot; M21.622 Bunionette of left foot | CPT/HCPCS: 99214 ==

== ENCOUNTER 2022-01-27 06:16 | Day surgery (SDC) | payer MEDICAID, SELFPAY ==
[2022-01-26 11:59] VITALS: BMI 38.9
--- NOTE | 2022-01-27 06:47 | P.HP_ITS ---
Same Day Surgery H&P Indication for Procedure/HPI DATE OF PROCEDURE: January 27, 2022 CHIEF COMPLAINT/INDICATIONFOR SURGICAL PROCEDURE: Screening colonoscopy PREOP DIAGNOSIS: Screening colonoscopy PLANNED PROCEDURE: Operation Date: 01/27/22 07:45 Proposed Procedures p Colonoscopy [id number](Not Applicable) - Lavell Gonzalez MD This is a pleasant 56 years old female patient referred to my practice for screening colonoscopy. Patient denies history of colon cancer and she does report intermittent bleeding with her hemorrhoid. Never had a colonoscopy before. ROS All systems have been reviewed negative except as for the above or per problem list. Medications/Allergies* Home Medications Medication Instructions Recorded Confirmed Type biotin 10,000 mcg capsule 10,000 mcg PO DAILY 11/22/21 01/26/22 History trazodone 50 mg tablet See Rx Instructions PO .qhs PRN 01/27/22 01/26/22 History Allergies/Adverse Reactions Allergy/AdvReac Type Severity Reaction Status Date / Time iodine Allergy Severe ALGY-Anaphy Verified 01/27/22 06:49 laxis aspirin Allergy ALGY-Hives Verified 01/27/22 06:49 hydrocodone [From Vicodin] Allergy Unknown Verified 01/27/22 06:49 NSAIDS (Non-Steroidal Allergy ADR-Nausea Verified 01/27/22 06:49 Anti-Inflamma Penicillins Allergy ALGY-Rash Verified 01/27/22 06:49 Pertinent History/Comorbid Conditions* Medical History (Updated 12/13/21 @ 09:06 by Vivek Dominguez MD) Cervicalgia Hyperlipemia Surgical History (Updated 02/23/20 @ 21:52 by Dinesh Newby DPM) Hx of appendectomy Hx of tubal ligation Family History (Updated 11/22/21 @ 13:24 by Linda Rodgers LPN) Father, age 33 Rheumatoid arthritis Diabetes CAD (coronary artery disease) Cancer Father Hypertension Stroke Denies family history of Lupus Hyperlipidemia Chronic kidney disease (CKD) Social History Smoking and tobacco status: former smoker Alcohol intake: never Lives independently: Yes Household members: spouse Housing: House Marital status: Current occupational status: employed Current occupation: [employer] Current occupational exposures/hazards: No History of recent travel: No Current gender identity: Female Pertinent Exam Findings alert, oriented x 3, clear to auscultation bilaterally, regular rate & rhythm and procedure specific exam findings (Abdominal examination nontender nondistended soft) Recommendations Surgery/Procedure today (Colonoscopy with possible biopsy) Other Plans: Plan of care; After thorough history and physical examination and reviewing the chart, plan to perform screening colonoscopy. I discussed with the patient in details the risks,benefits,alternatives and indications.The risk of aspiration, bleeding, soft tissue injury, perforation of the colon and other potential concomitant complications were explained to the patient in details,also the potential need for Laproscoy/Laparotomy to repair any related complications including but not limited to colectomy and or Closotomy.The patient understood this well and did agree to proceed. Rationale was carefully and clearly discussed with the patient.Appropriate informed consent have been reviewed and signed All questions have been answered and all concerns have been addressed to patient's satisfaction. Verbal and written Instructions were given to the patient for colonoscopy prep Coding Level of Care Code Acute [facility] [employer] Staff Officer for Edgar Abdi
[2022-01-27 06:57] VITALS: BP 115/69; PULSE 75; RESP 18; TEMP 36.1; O2SAT 97
[2022-01-27] MEDS: sodium chloride 0.9% 1,000 ML 30 ML IV (07:15)
--- NOTE | 2022-01-27 07:50 | ANES.PREANE2 ---
Pre-Anesthetic Assessment Height/Weight: Height 1.55 m Weight 93.44 kg Temp Pulse Resp BP Pulse Ox 97 F L 75 18 115/69 97 01/27/22 06:57 01/27/22 06:57 01/27/22 06:57 01/27/22 06:57 01/27/22 06:57 Preop Diagnosis: Screening colonoscopy Operation Date: 01/27/22 07:45 Proposed Procedures p Colonoscopy [id number](Not Applicable) - Lavell Gonzalez MD Familial anesthetic complications: none Last intake: Intake Last Liquid Date 01/26/22 Last Liquid Time 19:00 Last Solid Date 01/25/22 Last Solid Time 19:00 Social No alcohol and No tobacco Airway Submandibular: within normal limits Cervical ROM: within normal limits Mallampati: Class III Dentition: full Comments: Comments: poor dentition Pulmonary None reported CV/HEM None reported None reported Hepatic None reported GI Gastroesophageal Reflux Disease no symptoms today. Metabolic Hyperlipidemia, Morbid Obesity and Thyroid Disease Musc/skel None reported Neuropsych None reported Anesthetic Plan ASA status: 3 Anesthesia: MAC Medications/Allergies Home Medications Medication Instructions Recorded Confirmed Last Taken Type CAM WALKER #1 each 01/13/20 01/26/22 Unknown Rx omeprazole 20 mg capsule,delayed 20 mg PO BID #60 cap 10/25/21 01/26/22 01/26/22 Rx release gabapentin 300 mg capsule 300 mg PO TID 30 Days #90 cap 11/09/21 01/26/22 01/26/22 Rx biotin 10,000 mcg capsule 10,000 mcg PO DAILY 11/22/21 01/26/22 01/26/22 History alendronate 70 mg tablet (Fosamax) 70 mg PO .weekly #12 tab 01/12/22 01/27/22 01/23/22 Rx tramadol 50 mg tablet 50 mg PO Q8H PRN 7 Days #20 tab 01/25/22 01/26/22 Unknown Rx cholecalciferol (vitamin D3) 1,250 50,000 unit PO .weekly #12 cap 01/26/22 01/27/22 Unknown Rx mcg (50,000 unit) capsule levothyroxine 50 mcg tablet 50 mcg PO DAILY #30 tab 01/26/22 01/27/22 01/26/22 Rx trazodone 50 mg tablet See Rx Instructions PO .qhs PRN 01/27/22 01/26/22 Unknown History Allergies Allergy/AdvReac Type Severity Reaction Status Date / Time iodine Allergy Severe ALGY-Anaphy Verified 01/27/22 06:49 laxis aspirin Allergy ALGY-Hives Verified 01/27/22 06:49 hydrocodone [From Vicodin] Allergy Unknown Verified 01/27/22 06:49 NSAIDS (Non-Steroidal Allergy ADR-Nausea Verified 01/27/22 06:49 Anti-Inflamma Penicillins Allergy ALGY-Rash Verified 01/27/22 06:49 Current Medications Generic Name Dose Route Start Last Admin Trade Name Freq PRN Reason Stop Dose Admin Sodium Chloride 1,000 mls @ 30 mls/hr 01/27/22 06:45 01/27/22 07:15 Sodium Chloride 0.9% IV 01/28/22 06:44 30 mls/hr .Q24H LUKAS Administration PFSH Anesthesia Medical History Cervicalgia Hyperlipemia Surgical History Hx of appendectomy Hx of tubal ligation Family History Father , age 33 Cancer Other CAD (coronary artery disease) Diabetes Hypertension Rheumatoid arthritis Stroke Denies family history of Lupus Hyperlipidemia Chronic kidney disease (CKD) Social History Smoking and tobacco status: former smoker Alcohol intake: never Lives independently: Yes Household members: spouse Housing: House Marital status: Current occupational status: employed Current occupation: [employer] Current occupational exposures/hazards: No History of recent travel: No Current gender identity: Female Data Anesthesia Cardiac Studies: No Data to Display
[2022-01-27 08:16] VITALS: BP 95/52; PULSE 67; RESP 18; TEMP 36.3; O2SAT 92
[2022-01-27 08:30] VITALS: BP 117/79; PULSE 64; RESP 18; TEMP 36.6; O2SAT 95
--- NOTE | 2022-01-27 13:17 | ANE.PACU2 ---
Inpatient post-anesthesia follow up: Airway intact: Yes Vital signs: Temperature 98 F Pulse Rate 64 Respiratory Rate 18 Blood Pressure 117/79 Pulse Oximetry 95 Oxygen Delivery Me thod Room Air Oxygen Flow Rate Fraction of Inspir ed Oxygen Hydration adequate: Yes Nausea and vomiting: No Pain level: 1 Mental status: Baseline
== END 2022-01-27 08:43 | disposition home or self-care (01) ==
PROVIDERS: Surgery; PCP Nurse Practitioner Family; Visit Provider Surgery
PROC: 0DJD8ZZ Inspection of Lower Intestinal Tract, Via Natural or Artificial Opening Endoscopic (ICD-10-PCS; CPT 45378; principal; 2022-01-27 07:45)
DX: Z12.11 Encounter for screening for malignant neoplasm of colon (principal); Z87.891 Personal history of nicotine dependence; D12.2 Benign neoplasm of ascending colon; K21.9 Gastro-esophageal reflux disease without esophagitis; E78.5 Hyperlipidemia, unspecified; E66.01 Morbid (severe) obesity due to excess calories; Z68.38 Body mass index [BMI] 38.0-38.9, adult
CPT/HCPCS: 45385; 88305; J2704; J7030

== ENCOUNTER → 2022-02-09 13:41 | Outpatient (BNVA) | payer MEDICAID, SELFPAY | PROVIDERS: PCP Nurse Practitioner Family; Visit Provider Surgery | DX: K63.5 Polyp of colon (principal) | CPT/HCPCS: 99213 ==

== ENCOUNTER → 2022-02-28 16:12 | Outpatient (BNVA) | payer MEDICAID, SELFPAY | PROVIDERS: PCP Nurse Practitioner Family; Visit Provider Family Medicine | DX: M25.512 Pain in left shoulder (principal) | CPT/HCPCS: 73030 ==

== ENCOUNTER → 2022-03-13 11:41 | Outpatient (BNVA) | payer MEDICAID, SELFPAY | PROVIDERS: PCP Nurse Practitioner Family; Visit Provider Internal Medicine | DX: M54.2 Cervicalgia (principal); R53.83 Other fatigue; R76.8 Other specified abnormal immunological findings in serum; Z79.899 Other long term (current) drug therapy | CPT/HCPCS: 80053; 85025; 85651; 86140 ==

== ENCOUNTER 2022-03-16 07:04 | Outpatient (CLI) | payer MEDICAID, SELFPAY ==
--- NOTE | 2022-03-16 07:15 | MR_ITS ---
WS: [email or web address] MRI LEFT SHOULDER NONCONTRAST TECHNIQUE: Sagittal T2, coronal T1, T2 and proton density imaging. Axial gradient PDE imaging. CLINICAL INFORMATION: M25.512 - Pain in left shoulder COMPARISON: None. FINDINGS: Mild degenerative arthritis AC joint with downsloping of the acromion. Mild narrowing of the subacrom ial space. Subacromial spurring. Mild edema at the AC joint. High-grade tear involving the distal supraspinatus measuring 5.8 mm. No significant tendon retraction . Normal infraspinatus. Normal teres minor. Normal subscapularis. Small subcoracoid effusion.Normal b iceps tendon in the bicipital groove. Normal biceps labral anchor. Mild degenerative fraying of the g lenoid labrum. MR/MR shoulder LT wo con* [id number] IMPRESSION: 1. Mild degenerative arthritis AC joint with mild edema and downsloping acromi on. Slight subacromial spurring. 2. High-grade tear involving the distal supraspinatus measuring approximately 5.8 mm. This is 15 mm proximal to the insertion. No significant tendon retracti on. 3. Rotator cuff is otherwise normal. Small subcoracoid effusion. 4. Normal biceps tendon in the bicipital groove. Normal biceps labral anchor.
== END 2022-03-16 07:05 | disposition home or self-care (01) ==
LOC: RAD 07:05
PROVIDERS: PCP Nurse Practitioner Family; Visit Provider Family Medicine
DX: M25.512 Pain in left shoulder (principal)
CPT/HCPCS: 73221

== ENCOUNTER → 2022-03-27 15:43 | Outpatient (BNVA) | payer MEDICAID, SELFPAY | PROVIDERS: PCP Nurse Practitioner Family; Visit Provider Podiatrist Foot & Ankle Surgery | DX: M25.572 Pain in left ankle and joints of left foot (principal); M95.8 Other specified acquired deformities of musculoskeletal system; M20.41 Other hammer toe(s) (acquired), right foot; M20.42 Other hammer toe(s) (acquired), left foot; M21.621 Bunionette of right foot; M21.622 Bunionette of left foot | CPT/HCPCS: 73610; 99214 ==

== ENCOUNTER → 2022-03-30 13:21 | Outpatient (BNVA) | payer MEDICAID, SELFPAY | PROVIDERS: PCP Nurse Practitioner Family; Visit Provider Internal Medicine | DX: M25.50 Pain in unspecified joint (principal); R74.01 Elevation of levels of liver transaminase levels; R76.8 Other specified abnormal immunological findings in serum | CPT/HCPCS: 99214 ==

== ENCOUNTER → 2022-04-12 07:39 | Outpatient (BNVA) | payer MEDICAID, SELFPAY | PROVIDERS: PCP Nurse Practitioner Family; Referring Provider Family Medicine; Visit Provider Specialist | DX: M25.512 Pain in left shoulder (principal); M75.02 Adhesive capsulitis of left shoulder; M75.112 Incomplete rotator cuff tear or rupture of left shoulder, not specified as traumatic; M19.012 Primary osteoarthritis, left shoulder; G56.92 Unspecified mononeuropathy of left upper limb; M75.00 Adhesive capsulitis of unspecified shoulder | CPT/HCPCS: 20610; 73030; 99204; 99205; J1100; J2795; J3301 ==

== ENCOUNTER 2022-04-25 09:41 | Outpatient (CLI) | payer MEDICAID, SELFPAY ==
--- NOTE | 2022-04-25 10:00 | US_ITS ---
WS: [email or web address] RIGHT UPPER QUADRANT ULTRASOUND HISTORY: R74.01 - Elevation of levels of liver transaminase levels COMPARISON: 04/08/2010 Liver: 19.0 cm in length. Liver is mildly enlarged extending over length of 19 cm. Marked coarse echo texture throughout the liver and hepatic steatosis. The entire liver is difficult to penetrate. No ma ss or bile duct dilatation. Portal Vein: Normal hepatopetal flow with monophasic waveform. Gallbladder: Normally distended gallbladder with no stones or wall thickening. CBD: 0.5 cm Pancreas: Normal size and echogenicity. Right kidney: 9.8 cm in length. Normal size and echogenicity. No hydronephrosis or mass. Aorta and IVC: Limited visualization. No ascites. US/US abdomen limited [id number] IMPRESSION: 1. Moderate hepatomegaly and hepatic steatosis. No mass or bile duct dilatatio n. 2. Negative gallbladder.
== END 2022-04-25 09:42 | disposition home or self-care (01) ==
LOC: RAD 09:43
PROVIDERS: PCP Nurse Practitioner Family; Visit Provider Internal Medicine
DX: M25.572 Pain in left ankle and joints of left foot (principal); M76.72 Peroneal tendinitis, left leg; M95.8 Other specified acquired deformities of musculoskeletal system; M25.372 Other instability, left ankle; R74.01 Elevation of levels of liver transaminase levels
CPT/HCPCS: 76705; 99213; 99214

== ENCOUNTER 2022-04-25 09:42 | Outpatient (CLI) | payer MEDICAID, SELFPAY ==
--- NOTE | 2022-04-25 11:00 | MR_ITS ---
WS: [id number] MRI LEFT ANKLE NONCONTRAST TECHNIQUE: Sagittal proton density, sagittal STIR, axial proton density, axial T1, axial T2 fat sat, coronal proton density, coronal proton density fat sat, coronal T2 fat sat. CLINICAL INFORMATION: Rule out stress fracture and OCD COMPARISON: None. FINDINGS: Pes planus. Achilles enthesophyte. Achilles tendon is normal in appearance. No acute Achilles tear. N ormal bone marrow signal in the talus and calcaneus. Normal tibiotalar joint. Normal tibial plafond. Osteochondral defect involving the tibial plafond just medial to midline measuring 6.2 x 4.3 mm. No s ignificant surrounding edema.Normal medial and lateral malleolus. Palpable marker overlying the lateral foot below the tip of the lateral malleolus. Normal underlying soft tissues in this area. Traversing underlying peroneal tendons with a tiny amount of tenosynovitis along the peroneal tendon sheath. Increased signal involving the peroneal brevis compatible with ten dinopathy. In addition, fluid signal abnormality involving the peroneus brevis consistent with vertic ally oriented tear best delineated on the coronal imaging. Peroneal longus appears intact and normal. Extensor and flexor compartment tendons appear intact. Tiny amount of tenosynovitis along the tibiali s posterior. Normal talar neck. Normal navicular. Normal bone marrow signal in the tarsal bones. Part ially visualized proximal metatarsals are normal. MR/MR ankle LT wo con* [id number] IMPRESSION: 1. Small amount of tenosynovitis along the peroneal tendon sheath. Increased s ignal with vertical intrasubstance partial tear involving the peroneus brevis i n the area of palpable concern. Associated tendinopathy. 2. Tiny amount of tenosynovitis involving the tibialis posterior. 3. Osteochondral defect involving the tibial plafond just medial to midline m easuring 6.2 x 4.3 mm. No significant surrounding edema.
== END 2022-04-25 09:43 | disposition home or self-care (01) ==
LOC: RAD 09:43
PROVIDERS: PCP Nurse Practitioner Family; Visit Provider Podiatrist Foot & Ankle Surgery
DX: M25.572 Pain in left ankle and joints of left foot (principal); M95.8 Other specified acquired deformities of musculoskeletal system; M65.872 Other synovitis and tenosynovitis, left ankle and foot
CPT/HCPCS: 73721

== ENCOUNTER → 2022-05-02 11:14 | Outpatient (BNVA) | payer MEDICAID, SELFPAY | PROVIDERS: PCP Nurse Practitioner Family; Visit Provider Nurse Practitioner Family | DX: R79.89 Other specified abnormal findings of blood chemistry (principal); E78.5 Hyperlipidemia, unspecified; E03.9 Hypothyroidism, unspecified | CPT/HCPCS: 80053; 80061; 82306; 84443; 85025 ==

== ENCOUNTER → 2022-05-05 11:39 | Outpatient (BNVA) | payer MEDICAID, SELFPAY | PROVIDERS: PCP Nurse Practitioner Family; Referring Provider Specialist; Visit Provider Specialist | DX: M75.112 Incomplete rotator cuff tear or rupture of left shoulder, not specified as traumatic (principal); M54.2 Cervicalgia | CPT/HCPCS: 95860; 99202 ==

== ENCOUNTER 2022-06-13 08:10 | Day surgery (SDC) | payer MEDICAID, SELFPAY ==
[2022-06-13] VITALS (9 sets, daily range): BP systolic 120–173; BP diastolic 78–96; PULSE 69–93; RESP 14–18; TEMP 36.4–36.8; O2SAT 92–100; BMI 39.2
[2022-06-13] MEDS: sodium chloride 0.9% 1,000 ML 30 ML IV (08:49)
[2022-06-13] MEDS: acetaminophen 1,000 MG/100 ML PIGGYBACK 400 MG IV (08:49)
--- NOTE | 2022-06-13 08:56 | ANES.PREANE2 ---
Pre-Anesthetic Assessment Height/Weight: Height 1.55 m Weight 94.347 kg Temp Pulse Resp BP Pulse Ox O2 Del Method 98.2 F 72 18 134/96 100 06/13/22 08:28 06/13/22 08:28 06/13/22 08:28 06/13/22 08:28 06/13/22 08:28 06/13/22 08:28 Preop Diagnosis: Left rotator cuff tear with impingement, AC joint DJD Operation Date: 06/13/22 11:20 Proposed Procedures p Left rotator cuff repair with acromioplasty and distal clavical resection. [id number] 20259,M19.012,M75.02,M785.112(Left) - Ariadna Mccann MD s Acromioplasty(Left) - Ariadna Mccann MD s Distal Clavicle Resection(Left) - Ariadna Mccann MD Familial anesthetic complications: None Was Beta Aly taken within 24 hours: N/A Was Clonidine taken within 24 hours: N/A Last intake: Intake Last Liquid Date 06/12/22 Last Liquid Time 17:00 Last Solid Date 06/12/22 Last Solid Time 17:00 Social No alcohol and No tobacco Exam alert, oriented x 3, clear to auscultation bilaterally and regular rate & rhythm Airway Mallampati: Class III Dentition: full Metabolic Hyperlipidemia, Morbid Obesity and Thyroid Disease Anesthetic Plan ASA status: 3 Anesthesia: General and Regional (specify below) Risk of > 500 ml blood loss (7ml/kg in children): No Medications/Allergies Home Medications Medication Instructions Recorded Confirmed Last Taken Type CAM WALKER #1 ea 01/13/20 06/12/22 Unknown Rx gabapentin 300 mg capsule 300 mg PO TID 1 month #90 caps 11/09/21 06/13/22 01/26/22 Rx biotin 10,000 mcg capsule 10,000 mcg PO DAILY 11/22/21 06/13/22 06/12/22 History alendronate 70 mg tablet (Fosamax) 70 mg PO .weekly #12 tabs 01/12/22 06/13/22 06/12/22 Rx cholecalciferol (vitamin D3) 1,250 50,000 unit PO .weekly #12 caps 01/26/22 06/13/22 06/12/22 Rx mcg (50,000 unit) capsule levothyroxine 50 mcg tablet 50 mcg PO DAILY #30 tabs 01/26/22 06/13/22 06/12/22 Rx trazodone 50 mg tablet See Rx Instructions PO .qhs PRN 01/27/22 06/13/22 06/12/22 History Sleep lidocaine 5 % topical patch 1 patch topical DAILY #30 ea 02/28/22 06/13/22 Unknown Rx (Lidoderm) diclofenac sodium 1 % topical gel 4 g topical QID #100 grams 03/30/22 06/13/22 Unknown Rx (Voltaren Arthritis Pain) hydroxychloroquine 200 mg tablet 200 mg PO BID #60 tabs 03/30/22 06/13/22 06/12/22 Rx Spectrum AFO with T-strap #1 ea 04/25/22 06/12/22 Unknown Rx atorvastatin 20 mg tablet 20 mg PO DAILY #90 tabs 05/08/22 06/13/22 06/12/22 Rx omeprazole 20 mg capsule,delayed See Rx Instructions .Route 05/29/22 06/13/22 06/12/22 Rx release .COMPLEX #60 caps Allergies Allergy/AdvReac Type Severity Reaction Status Date / Time iodine Allergy Severe ALGY-Anaphy Verified 06/12/22 13:59 laxis aspirin Allergy ALGY-Hives Verified 06/12/22 13:59 hydrocodone [From Vicodin] Allergy Unknown Verified 06/12/22 13:59 NSAIDS (Non-Steroidal Allergy ADR-Nausea Verified 06/12/22 13:59 Anti-Inflamma Penicillins Allergy ALGY-Rash Verified 06/12/22 13:59 Current Medications Generic Name Dose Route Start Last Admin Trade Name Treverq PRN Reason Stop Dose Admin Sodium Chloride 1,000 mls @ 30 mls/hr 06/13/22 08:30 06/13/22 08:49 Sodium Chloride 0.9% IV 06/14/22 08:29 30 mls/hr .Q24H LUKAS Administration PFSH Anesthesia Medical History Cervicalgia Hyperlipemia Surgical History Hx of appendectomy Hx of tubal ligation Family History Father , age 33 Cancer Other CAD (coronary artery disease) Diabetes Hypertension Rheumatoid arthritis Stroke Denies family history of Lupus Hyperlipidemia Chronic kidney disease (CKD) Social History Smoking and tobacco status: never smoked Second hand smoke exposure: Yes Alcohol intake: never Lives independently: Yes Household members: spouse Housing: House Marital status: Current occupational status: employed Current occupation: [employer] Current occupational exposures/hazards: No History of recent travel: Yes Details: [place] Out of state: Yes Current gender identity: Female Data Anesthesia Cardiac Studies: No Data to Display
--- NOTE | 2022-06-13 09:14 | ANES.PROC ---
Anesthesia Procedures Procedure/Date: 06/13/22 Nerve Block ^: Nerve Block 1: Main Anesthesia: general anesthesia Time Out Performed: Yes Consent: requested by attending/covering physician, from patient, risks and benefits reviewed and patient agrees to proceed Nerve block location: interscalene (L) Anesthesia monitors applied: pulse oximetry, EKG and BP cuff Nerve block position: semi sitting Anesthetic Used: ropivicaine 0.5% (20 ml) and with decadron (4 mg) Ultrasound used to: visualize and ID brachial plexus Nerve Stimulator Used?: Yes Interscalene/Femoral BLK: 2 stimuplex 22 g needle used for position and inplane approach, visualize local anesthetic spread and no vascular puncture identified Injection: neg aspiration of heme Patient Tolerated Procedure: well and no complications Complications: none
--- NOTE | 2022-06-13 10:33 | P.HPUD_ITS ---
Surgery/Procedure H&P Update DATE OF PROCEDURE: June 13, 2022 DATE H&P PERFORMED: 05/31/22 H&P UPDATE INFORMATION: I have reviewed H&P completed within last 30 days, I have examined patient prior to procedure, No changes to prior documentation and H&P is in [facility] [place] date indicated PREOP DIAGNOSIS: Left rotator cuff tear with impingement, AC joint DJD PLANNED PROCEDURE: Operation Date: 06/13/22 11:20 Proposed Procedures p Left rotator cuff repair with acromioplasty and distal clavical resection. [id number] 33684,M19.012,M75.02,M785.112(Left) - Ariadna Mccann MD s Acromioplasty(Left) - Ariadna Mccann MD s Distal Clavicle Resection(Left) - Ariadna Mccann MD Related Problem List Diagnoses (1) Partial tear of left rotator cuff: (2) Osteoarthritis of left acromioclavicular joint: (3) Impingement syndrome, shoulder, left:
[2022-06-13] MEDS: vancomycin 1,000 MG in sodium chloride 0.9% 250 ML 250 MG IV (10:40)
[2022-06-13] MEDS: vancomycin 1,000 MG SDV 1000 MG IRRIGATION (11:40)
--- NOTE | 2022-06-13 13:03 | PM.OP ---
Operative Report Date of procedure: June 13, 2022 Pre-op diagnosis: Left rotator cuff tear, acromioclavicular degenerative osteoarthritis, and impingement Post-op diagnosis: Left rotator cuff tear, acromioclavicular degenerative osteoarthritis, and impingement Post-op findings: Severe impingement with horizontal rotator cuff tear and severe degenerative osteoarthritis of acromioclavicular joint Procedure done: Left primary rotator cuff repair, acromioplasty, and distal clavicle resection Specimens removed/disposition: None Pathology: none sent Surgeon: Ariadna Mccann Seam Sewer: [facility] operating room technicians Anesthesia: General (Intubated, ASA 3) Estimated blood loss (mL): 10 IV fluids (mL): 700 Urine output (mL): 0 (No Chau) Complications: None Findings: Horizontal tear proximal to the insertion point in the supraspinatus tendon requiring repair with 4 sutures and a primary qlps-cb-rott fashion Condition: stable Disposition: PACU (Then return to same-day surgery for discharge to home) Brief History: Ryanne Harvey is an established 56 year old female patient who is here today for left rotator cuff repair, acromioplasty, and distal clavicle resection.? Patient states that cortisone injection from 04/12/22 did no relieve any pain.? Patient states that she continues to do at home physical therapy exercises, but they are not helping to relieve pain.? Patient rated pain at 8/10 in clinic. While in clinic, questions were answered, the patient signed consents, and further discussion of the surgery was undertaken. Procedure: The patient was brought to the operating theater and underwent general intubated anesthesia, ASA 3. The patient was placed in a beachchair position and subsequently the left upper extremity was prepped and draped in the usual fashion utilizing DuraPrep. The arm was draped free. A surgical pause was performed prior to commencement of the surgical procedure. At the time of the surgical pause, we confirmed the site and side of surgery as well as administration of appropriate preoperative antibiotics, vancomycin 1 g. MRI was also reviewed at that time. Following the surgical pause, an incision was made at approximately the level of the acromioclavicular joint extending across the anterolateral corner of the acromion and distally as necessary. Care was taken to avoid injury to the axillary nerve by limiting the distal extent of the incision. Dissection continued through skin and soft tissues using a scalpel. Hemostasis was obtained using electrocautery.? Soft tissues were elevated off the acromion.? An acromioplasty was then accomplished using a combination of a saw and a power rasp.? With this, we were able to remove compression caused by the acromion.? The rotator cuff was then evaluated. The shoulder was placed through range of motion, and the rotator cuff was fully evaluated.? There was found to be a horizontal tear proximal to the insertion site of the supraspinatus.? This was nearly full-thickness, and it was freshened and mobilized.? As this tear did not involve the insertion of the supraspinatus, a primary repair was accomplished using 0 Ethibond with 4 sutures.? The tear orientation was noted to be horizontal. After the rotator cuff had been thus addressed, the shoulder was placed through further range of motion to assure there was no further evidence of rotator cuff tear. The acromioclavicular joint was exposed.? A saw was used to resect the distal clavicle without difficulty. The undersurface of the clavicle was palpated and was slightly further debrided with a rongeur.? A power rasp was used to further smooth the area.? When this was felt to be adequately resected, the wound was irrigated. Attention was then directed to closure.? Prior to closure, the shoulder was placed once again through range of motion.? There was no catching from the rotator cuff repair.? There was felt to be adequate decompression of the subacromial space. The wound was irrigated and closure was accomplished with 0 Vicryl in the capsular tissues overlying the acromioclavicular joint area as well as over the acromion and down into the deltoid muscle. 3-0 Monocryl was used to close the subcutaneous tissues followed by 4-0 Monocryl subcuticular closure. This was followed by Dermabond, Steri-Strips, and OpSite. The patient was placed in a slingshot style sling and was returned to the recovery room in satisfactory condition. The patient will be discharged to home to follow-up in the office as scheduled. There were no complications and no specimens. Related Problem List Diagnoses (1) Partial tear of left rotator cuff: (2) Osteoarthritis of left acromioclavicular joint: (3) Impingement syndrome, shoulder, left:
--- NOTE | 2022-06-13 13:15 | SUR.PHASEI ---
1254 PT AWAKES TO VOICE, GOOD RESP NOTED MONITOR SR WITH NO ECTOPY, VSS IV TO RT AC #18 WITH NS 200ML UP AT KVO RATE PER GRAVITY, PT HOB AT 45 DEGREES, PT ENCOURAGED TO COUGH AND DEEP BREATHE, LT SHOULDER DRESSING D/I WITH FIRST ICE TO SITE, DON LEONEL BRACE IN PLACE WITH DISTAL FINGERS PINK WARM WITH FAST CAP REFILL NOTED , BILAT SCDS ON.
[2022-06-13] MEDS: TRAMadol 50 mg Tablet PO (13:57)
--- NOTE | 2022-06-13 14:48 | ANE.PACU2 ---
Inpatient post-anesthesia follow up: Airway intact: Yes Vital signs: Temperature 97.6 F Pulse Rate 87 Respiratory Rate 16 Blood Pressure 120/78 Pulse Oximetry 92 Oxygen Delivery Me thod Room Air Oxygen Flow Rate 8 Fraction of Inspir ed Oxygen Hydration adequate: Yes Nausea and vomiting: No Pain level: 1 Mental status: Baseline
== END 2022-06-13 14:18 | disposition home or self-care (01) ==
PROVIDERS: PCP Nurse Practitioner Family; Visit Provider Specialist
PROC: (CPT 23120; principal; 2022-06-13 11:10)
PROC: (CPT 23130; 2022-06-13 11:10)
PROC: (CPT 23120; 2022-06-13 11:10)
DX: M75.112 Incomplete rotator cuff tear or rupture of left shoulder, not specified as traumatic (principal); M19.012 Primary osteoarthritis, left shoulder; M75.42 Impingement syndrome of left shoulder; E78.5 Hyperlipidemia, unspecified; E66.01 Morbid (severe) obesity due to excess calories; Z68.39 Body mass index [BMI] 39.0-39.9, adult
CPT/HCPCS: 23120; 29826; 29827; J1100; J1200; J2250; J2795; J3010; J3370; J3490; J7030

== ENCOUNTER 2022-06-16 07:51 | Inpatient (IN) | payer MEDICAID, SELFPAY ==
[2022-06-16] VITALS (85 sets, daily range): BP systolic 104–145; BP diastolic 65–91; PULSE 73–104; RESP 8–29; TEMP 36.6–37.1; O2SAT 74–99; BMI 45.7
[2022-06-16 08:08] LABS: Glucose Point of Care 135 mg/dL (70-110)
--- NOTE | 2022-06-16 08:08 | ECG_ITS ---
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 Measurements Intervals [place] Rate: 92 P: 31 IL: 176 QRS: 73 QRSD: 102 T: 28 QT: 369 QTc: 459 Interpretive Statements SINUS RHYTHM No previous ECG available for comparison Electronically Signed On 06-16-2022 19:06:56 CDT by Jolie Farley M.D. [id number]
--- NOTE | 2022-06-16 08:18 | W.ED.SEIZURE ---
HPI - Seizure General: Chief Complaint: Seizure Stated Complaint: SEIZURE/ POSTICTAL Time Seen by Provider: 06/16/22 07:55 Source: patient Mode of arrival: ambulatory History of Present Illness: HPI Narrative: 56-year-old female was at home she seemed to be in her normal state of health this morning she is recovering from a left shoulder surgery she was awake and talking and then her return to the room after leaving did perform a task she was nonresponsive. EMS was called she is found to be hypoxic 74% range and she improved with oxygenation but continued to be wrist unresponsive. She had episode of urinary incontinence and is obtunded. She had been using narcotics for pain control postop. On arrival here she was given Narcan x2 with minimal response. There was no witnessed seizure-like activity MD complaint: possible seizure Onset (ago): minute(s) Description of Episode: loss of consciousness Seizure History: No Place: Home Possible Precipitating Event: medication Associated symptoms: Reports confusion and short of breath; Deny chest pain, chills, cough, diaphoresis, fever(s), anorexia, malaise, rash, syncope or weakness Treatments prior to arrival: none and other (Oxygen) Review of Systems Const: Denies: fever(s), chills, fatigue, malaise or diaphoresis ENMT: Denies: throat pain, ear or mastoid pain, nasal discharge or nasal congestion Card: Denies: chest pain, palpitations, irregular heart rhythm or syncope Resp: Reports: dyspnea; Denies: productive cough or non-productive cough GI: Denies: abdominal pain, nausea, vomiting, hematemesis, coffee ground emesis, diarrhea, constipation, bloating, hematochezia or melena : Denies: flank pain, difficulty voiding, dysuria, urinary frequency or urinary urgency Skin/Breast: Denies: rash or pruritus Neuro: Reports: confusion PFSH ED PFSH: Medical History Cervicalgia Hyperlipemia Surgical History Hx of appendectomy Hx of tubal ligation Family History Father , age 33 Cancer Other CAD (coronary artery disease) Diabetes Hypertension Rheumatoid arthritis Stroke Denies family history of Lupus Hyperlipidemia Chronic kidney disease (CKD) Social History Smoking and tobacco status: never smoked Second hand smoke exposure: Yes Alcohol intake: never Lives independently: Yes Household members: spouse Housing: House Marital status: Current occupational status: employed Current occupation: [employer] Current occupational exposures/hazards: No History of recent travel: Yes Details: [place] Out of state: Yes Current gender identity: Female Physical Exam HENMT: COMMON NORMALS: normocephalic, atraumatic and hearing grossly normal bilaterally HEAD & SCALP: normocephalic and atraumatic Resp: COMMON NORMALS: normal respiratory effort, No retractions and No use of accessory muscles AUSCULTATION: diminished lung sounds Cardio: COMMON NORMALS: regular rhythm and No murmurs present (Cardio) RATE: tachycardic RHYTHM: regular rhythm GI: COMMON NORMALS: Soft to palpation and No hepatosplenomegaly present AUSCULTATION: Yes normoactive bowel sounds PALPATION: Yes Soft to palpation, No Tenderness to palpation present (GI), No Guarding due to palpation present (GI) and Yes No hepatosplenomegaly present Extremity: COMMON NORMALS: normal to inspection, capillary refill normal and no calf tenderness Skin: COMMON NORMALS: no rashes or lesions noted GENERAL SKIN EXAM: no rashes or lesions noted Course Vital Signs: Vital signs: Vital Signs Temperature 97.8 F 06/16/22 07:55 Pulse Rate 101 H 06/16/22 07:55 Respiratory Rate 8 L 06/16/22 07:55 Blood Pressure 104/65 06/16/22 07:55 Pulse Oximetry 74 L 06/16/22 07:55 Oxygen Delivery Me thod 06/16/22 07:55 MDM - Seizure MDM Narrative Medical decision making narrative: CT negative. CTA chest shows bilateral pulmonary emboli. Some right heart strain. Venous duplex and echocardiogram pending patient has been heparinized. Discussed with hospitalist orders written. Lab Data Result diagrams: 06/16/22 08:10 06/16/22 08:10 Labs: Radiology Impressions Chest X-Ray 06/16/22 08:26 IMPRESSION: 1. Findings suspicious for infiltrate in the medial aspect of the right lower lobe. There may be infiltrate in the left retro- Recommendation: A detailed PA and lateral chest radiograph would be recommended for further workup cardiac region. Head CT 06/16/22 08:26 IMPRESSION: 1. Mild presumed small vessel ischemic disease of indeterminate age. 2. No acute intracranial hemorrhage. Chest CTA 06/16/22 09:39 IMPRESSION: 1. Multiple bilateral pulmonary emboli with evidence of right heart strain. 2. Consolidation in the right lower lobe that may reflect developing pulmonary infarct or pneumonia. 3. Mild ventral subcutaneous edema involving the left upper chest wall/shoulder; likely related to recent surgery. 4. Probable hepatic steatosis. The common bile duct appears dilated. Consider right upper quadrant ultrasound to further assess. 5. Borderline cardiomegaly with coronary artery disease. 6. Moderate hiatal hernia. Findings discussed with TANNER CHATMAN at 06/16/2022 11:28 AM CDT. Laboratory Results WBC 10.7 10^3/uL (4.0-10.0) H 06/16/22 08:10 RBC 4.15 10^6/uL (4.1-5.3) 06/16/22 08:10 Hgb 11.7 g/dL (11.5-15.3) 06/16/22 08:10 Hct 37.2 % (37.0-47.0) 06/16/22 08:10 MCV 89.6 fl (81-99) 06/16/22 08:10 MCH 28.2 pg (28.0-34.0) 06/16/22 08:10 MCHC 31.5 g/dL (30.0-36.0) 06/16/22 08:10 RDW 14.6 % (12.1-15.1) 06/16/22 08:10 Plt Count 220 10^3/cmm (130-400) 06/16/22 08:10 MPV 9.6 fL (7.4-10.4) 06/16/22 08:10 Neut % (Auto) 70.3 % 06/16/22 08:10 Lymph % (Auto) 20.4 % 06/16/22 08:10 [place] % (Auto) 7.3 % 06/16/22 08:10 Eos % (Auto) 1.0 % 06/16/22 08:10 Baso % (Auto) 0.4 % 06/16/22 08:10 Neut # (Auto) 7.49 10^3/uL (1.8-7.7) 06/16/22 08:10 Lymph # (Auto) 2.2 10^3/uL (0.8-4.8) 06/16/22 08:10 [place] # (Auto) 0.8 10^3/uL (0.2-0.9) 06/16/22 08:10 Eos # (Auto) 0.1 10^3/uL (0.0-0.8) 06/16/22 08:10 Baso # (Auto) 0.0 10^3/uL (0.0-0.1) 06/16/22 08:10 Nucleated RBC % (auto) 0 % 06/16/22 08:10 Nucleated RBCs # 0.0 /100WBC 06/16/22 08:10 Specimen Type Arterial 06/16/22 09:15 Sample Site Radial, right 06/16/22 09:15 ABG pH 7.42 (7.35-7.45) 06/16/22 09:15 ABG pCO2 44.1 mmHg (35-45) 06/16/22 09:15 ABG pO2 66.7 mmHg (80.0-100.0) L 06/16/22 09:15 ABG HCO3 28.7 mmol/L (22-26) H 06/16/22 09:15 ABG O2 Saturation 92.4 06/16/22 09:15 ABG Base Excess 3.6 mmol/L (-2.0-2.0) H 06/16/22 09:15 Fish Test Pos 06/16/22 09:15 A-a O2 Gradient 3.9 mmHg (5-10) L 06/16/22 09:15 Hematocrit 38.0 % (37-47) 06/16/22 09:15 Hgb O2 Saturation 91.4 % (95-100) L 06/16/22 09:15 Carboxyhemoglobin < 1.0 %THgb (0.4-20.1) 06/16/22 09:15 Methemoglobin 0.4 % (0.4-1.5) 06/16/22 09:15 Total Hemoglobin 12.4 g/dL (12-16) 06/16/22 09:15 Sodium 140.0 mmol/L (131-143) 06/16/22 09:15 Potassium 3.4 mmol/L (3.5-5.0) L 06/16/22 09:15 Glucose 122.0 mg/dL (70-115) H 06/16/22 09:15 Ionized Calcium 1.1 mmol/L (1.1-1.4) 06/16/22 09:15 O2 Delivery Device Nc 06/16/22 09:15 O2 Liters/Min 4.0 % 06/16/22 09:15 Aerial Survey Technician ID Gd 06/16/22 09:15 Sodium 135 mmol/L (136-145) L 06/16/22 08:10 Potassium 3.7 mmol/L (3.5-5.1) 06/16/22 08:10 Chloride 98 mmol/L (98-107) 06/16/22 08:10 Carbon Dioxide 26 mmol/L (22-29) 06/16/22 08:10 Anion Gap 14.7 (5-19) 06/16/22 08:10 BUN 12 mg/dL (6-20) 06/16/22 08:10 Creatinine 0.5 mg/dL (0.5-0.9) 06/16/22 08:10 GFR Calculation 126.7 mL/min (90-130) 06/16/22 08:10 Glucose 128 mg/dL (65-115) H 06/16/22 08:10 POC Glucose 135 mg/dL (70-110) H 06/16/22 08:04 Calculated Osmolality 281 mOsm/kg (285-295) L 06/16/22 08:10 Calcium 8.7 mg/dL (8.5-10.5) 06/16/22 08:10 Total Bilirubin 0.4 mg/dL (0.15-1.2) 06/16/22 08:10 AST 26 U/L (0-32) 06/16/22 08:10 ALT 32 U/L (0-33) 06/16/22 08:10 Alkaline Phosphatase 109 U/L (35-105) H 06/16/22 08:10 Creatine Kinase 41 U/L (26-192) 06/16/22 08:10 Troponin T Baseline 22 ng/L (0-10) H 06/16/22 08:10 Total Protein 6.2 g/dL (6.6-8.7) L 06/16/22 08:10 Albumin 3.4 g/dL (3.5-5.2) L 06/16/22 08:10 Globulin 2.8 g/dL (1.3-4.6) 06/16/22 08:10 Urine Color Yellow (Yellow) 06/16/22 10:40 Urine Appearance Clear (CLEAR) 06/16/22 10:40 Urine pH 5.5 (5-7) 06/16/22 10:40 Ur Specific Emma 1.025 (1.005-1.030) 06/16/22 10:40 Urine Protein Trace (Negative) A 06/16/22 10:40 Urine Glucose (UA) Negative (Normal) 06/16/22 10:40 Urine Ketones Negative (Negative) 06/16/22 10:40 Urine Blood Negative (Negative) 06/16/22 10:40 Urine Nitrate Negative 06/16/22 10:40 Urine Bilirubin Negative (Negative) 06/16/22 10:40 Urine Urobilinogen 0.2 mg/dL (Negative) 06/16/22 10:40 Ur Leukocyte Esterase Negative (Negative) 06/16/22 10:40 Urine RBC 0-4 /hpf (0-2) H 06/16/22 10:40 Urine WBC 0-4 /hpf (0-5) H 06/16/22 10:40 Ur Squamous Epith Cells 0-4 /hpf (0-5) H 06/16/22 10:40 Amorphous Sediment Not Reportable 06/16/22 10:40 Urine Bacteria None /hpf (NONE) 06/16/22 10:40 Discharge Plan Discharge Patient Disposition: Admitted As Inpatient Clinical Impression: Pulmonary embolism, Hypothyroidism, Obesity Condition: Stable Prescriptions: No Action (DME) CAM WALKER Qty: 1 0RF Rx Instructions: As directed biotin 10,000 mcg capsule 10,000 mcg PO DAILY hydroxychloroquine 200 mg tablet 200 mg PO BID Qty: 60 3RF lidocaine [Lidoderm] 5 % adhesive patch,medicated 1 patch topical DAILY Qty: 30 0RF Rx Instructions: leave on for 12 hours, then off for 12 hours. (DME) Spectrum AFO with T-strap See Rx Instructions .Route .MEDSUPPLY Qty: 1 0RF Rx Instructions: As directed by FOUZIA&O levothyroxine 50 mcg tablet 50 mcg PO DAILY Qty: 30 2RF cholecalciferol (vitamin D3) 1,250 mcg (50,000 unit) capsule 50,000 unit PO .weekly Qty: 12 0RF atorvastatin 20 mg tablet 20 mg PO DAILY Qty: 90 1RF trazodone 50 mg tablet 25 - 50 mg PO BEDTIME PRN (Reason: Sleep) tramadol 50 mg tablet 50 - 100 mg PO Q4H PRN (Reason: pain) Rx Instructions: LIMIT 8 TABS A DAY omeprazole 20 mg capsule,delayed release(DR/EC) 20 mg PO BID Referrals: Tracey Rodgers FNP [Primary Care Provider] - Patient Instructions: Opioid Safety, Pain Management Coding Level of Care Code 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
--- NOTE | 2022-06-16 08:26 | CTR_ITS ---
PROCEDURE INFORMATION: Exam: CT Head Without Contrast Exam date and time: 06/16/2022 8:36 AM Age: 56 years old Clinical indication: Altered mental status/memory loss. Confusion or disorientation. Recent left shoulder sugery. TECHNIQUE: Imaging protocol: Computed tomography of the head without contrast. Radiation optimization: All CT scans at this facility use at least one of these dose optimization techniques: automated exposure control; mA and/or kV adjustment per patient size (includes targeted exams where dose is matched to clinical indication); or iterative reconstruction. COMPARISON: CT head wo con* [id number] 05/13/2019 2:02 PM RADIATION DOSE METRICS: Total DLP (mGy-cm): 1060.48 FINDINGS: Brain: No acute intracranial hemorrhage. No mass, mass effect or midline shift. Mild presumed small vessel ischemic disease of indeterminate age. The posterior fossa is grossly unremarkable; however, it is partially obscurred by beam hardening artifact. Cerebral ventricles: The ventricles are normal in configuration. Paranasal sinuses: The visualized paranasal sinuses are clear. Mastoid air cells: No mastoid effusion. Orbital cavities: The visualized orbits are unremarkable. Bones/joints: No acute fracture is seen. Soft tissues: No significant soft tissue swelling. Vasculature: There is no evidence of acute large vessel infarct. CT/CT head wo con* [id number] IMPRESSION: 1. Mild presumed small vessel ischemic disease of indeterminate age. 2. No acute intracranial hemorrhage.
--- NOTE | 2022-06-16 08:26 | XR_ITS ---
WS: [id number] Exam: XR chest 1V portable [id number] Date/Time of Exam: 06/16/2022 8:26 AM Reason For Exam: dyspnea/cough Comparison 04/08/2010. There appears to be infiltrate behind the right heart most likely in the right lower lobe. There may be some in the left retrocardiac region. Heart size is top limits normal. A mediastinum is prominent probably due to AP technique. No pleural effusions or pneumothorax. Bony structures are intact. Bone infarct in the proximal right humerus. XR/XR chest 1V portable [id number] IMPRESSION: 1. Findings suspicious for infiltrate in the medial aspect of the right lower l obe. There may be infiltrate in the left retro- Recommendation: A detailed PA and lateral chest radiograph would be recommended for further workup cardiac region.
[2022-06-16 08:42] LABS: Basophils % 0.4 %; Eosinophils # 0.1 10^3/uL (0.0-0.8); Hematocrit 37.2 % (37.0-47.0); Hemoglobin 11.7 g/dL (11.5-15.3); Lymphocytes # 2.2 10^3/uL (0.8-4.8); Lymphocytes % 20.4 %; Mean Corpuscular HGB Conc 31.5 g/dL (30.0-36.0); Mean Corpuscular Hemoglobin 28.2 pg (28.0-34.0); Mean Corpuscular Volume 89.6 fl (81-99); Mean Platelet Volume 9.6 fL (7.4-10.4); Monocytes # 0.8 10^3/uL (0.2-0.9); Monocytes % 7.3 %; Neutrophils # 7.49 10^3/uL (1.8-7.7); Neutrophils % 70.3 %; Nucleated Red Blood Cells % 0 %; Platelet Count 220 10^3/cmm (130-400); Red Blood Count 4.15 10^6/uL (4.1-5.3); Red Cell Distribution Width 14.6 % (12.1-15.1); White Blood Count 10.7 10^3/uL (4.0-10.0)
[2022-06-16] MEDS: naloxone 0.4 mg/ml SDV IVP ×2 (08:53→08:59)
[2022-06-16 09:03] LABS: Alanine Aminotransferase 32 U/L (0-33); Albumin Level 3.4 g/dL (3.5-5.2); Alkaline Phosphatase 109 U/L (35-105); Blood Urea Nitrogen 12 mg/dL (6-20); Calcium 8.7 mg/dL (8.5-10.5); Carbon Dioxide 26 mmol/L (22-29); Chloride 98 mmol/L (98-107); Creatine Phosphokinase 41 U/L (26-192); Globulin 2.8 g/dL (1.3-4.6); Glomerular Filtration Rate 126.7 mL/min (90-130); Glucose 128 mg/dL (65-115); Osmolality Calculated 281 mOsm/kg (285-295); Sodium 135 mmol/L (136-145); Total Bilirubin 0.4 mg/dL (0.15-1.2); Total Protein 6.2 g/dL (6.6-8.7)
[2022-06-16 09:13] LABS: Anion Gap 14.7 (5-19); Aspartate Amino Transferase 26 U/L (0-32); Potassium 3.7 mmol/L (3.5-5.1)
[2022-06-16 09:29] LABS: ABG PCO2 44.1 mmHg (35-45); ABG PH Result 7.42 (7.35-7.45); Alveolar-Arterial Oxygen Gradi 3.9 mmHg (5-10); Base Excess ABG 3.6 mmol/L (-2.0-2.0); Blood Gas Allen Test Pos; Blood Gas Sample Site Radial, right; Blood Gas Sample Type Arterial; Carboxyhemoglobin < 1.0 %THgb (0.4-20.1); HCO3 ABG 28.7 mmol/L (22-26); HGB O2 Sat 91.4 % (95-100); Ionized Calcium Level - ABG 1.1 mmol/L (1.1-1.4); Methemoglobin 0.4 % (0.4-1.5); Oxygen Saturation ABG 92.4; PO2 ABG 66.7 mmHg (80.0-100.0); Potassium Level - ABG 3.4 mmol/L (3.5-5.0); Total Hemoglobin 12.4 g/dL (12-16)
[2022-06-16 09:30] LABS: Blood Gas Operator Identificat GD; Oxygen Device NC
--- NOTE | 2022-06-16 09:39 | CTR_ITS ---
PROCEDURE INFORMATION: Exam: CTA Chest With Contrast Exam date and time: 06/16/2022 10:58 AM Age: 56 years old Clinical indication: Hypoxia. Post-operative (0-2 days) status post left shoulder surgery. Patient unable to raise left arm above head due to recent surgery. TECHNIQUE: Imaging protocol: Computed tomographic angiography of the chest with contrast. 3D rendering (Not supervised by radiologist): MIP and/or 3D reconstructed images were created by the technologist. Radiation optimization: All CT scans at this facility use at least one of these dose optimization techniques: automated exposure control; mA and/or kV adjustment per patient size (includes targeted exams where dose is matched to clinical indication); or iterative reconstruction. Contrast material: OMNIPAQUE 350; Contrast volume: 95 ml; Contrast route: INTRAVENOUS (IV); COMPARISON: CR XR chest 1V portable [id number] 06/16/2022 8:38 AM RADIATION DOSE METRICS: Total DLP (mGy-cm): 493.49 FINDINGS: Pulmonary arteries: There are multiple bilateral pulmonary emboli. The RV to LV ratio is 1.4. Aorta: No thoracic aortic aneurysm. No thoracic aortic dissection. Lungs: There is consolidation in the right lower lobe that may reflect developing pulmonary infarct or pneumonia. There are foci of subsegmental atelectasis or scarring, bilaterally. No pulmonary mass. Pleural spaces: No pleural effusion. No pneumothorax. Heart: No pericardial effusion. Borderline cardiomegaly. Coronary arterial calcifications are seen. Lymph nodes: No significant mediastinal lymphadenopathy. Diaphragm: Moderate hiatal hernia. Liver: Probable hepatic steatosis. The common bile duct appears dilated. Bones/joints: No acute fracture is identified. Soft tissues: Mild ventral subcutaneous edema involving the left upper chest wall/shoulder. CT/CT angio chest PE protcl [id number] IMPRESSION: 1. Multiple bilateral pulmonary emboli with evidence of right heart strain. 2. Consolidation in the right lower lobe that may reflect developing pulmonary infarct or pneumonia. 3. Mild ventral subcutaneous edema involving the left upper chest wall/shoulder; likely related to recent surgery. 4. Probable hepatic steatosis. The common bile duct appears dilated. Consider right upper quadrant ultrasound to further assess. 5. Borderline cardiomegaly with coronary artery disease. 6. Moderate hiatal hernia. Findings discussed with YUNG CHATMAN at 06/16/2022 11:28 AM CDT.
--- NOTE | 2022-06-16 09:55 | PC.NURSE ---
PT PLACED ON CONTINUOUS NIBP, SPO2, AND CM
--- NOTE | 2022-06-16 10:26 | ECG_ITS ---
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 Measurements Intervals [place] Rate: 100 P: 37 [place]: 200 QRS: 60 QRSD: 97 T: 7 QT: 349 QTc: 451 Interpretive Statements SINUS TACHYCARDIA ABNORMAL RHYTHM ECG Compared to ECG 06/16/2022 08:08:33 Sinus rhythm no longer present Electronically Signed On 06-16-2022 19:07:11 CDT by Jolie Farley M.D. [id number]
[2022-06-16] MEDS: diphenhydrAMINE 50 mg/mL SDV 1mL IVP (10:35)
[2022-06-16 10:46] LABS: Bilirubin Urine Negative (Negative); Blood Urine Negative (Negative); Glucose Urine UA Negative (Normal); Ketones Urine Negative (Negative); Leukocyte Esterase Urine Negative (Negative); Nitrate Urine Negative; Protein Urine Trace (Negative); Specific Gravity, Urine 1.025 (1.005-1.030); Urine Appearance Clear (CLEAR); Urine Color Yellow (Yellow); Urobilinogen Urine 0.2 mg/dL (Negative); pH Urine 5.5 (5-7)
[2022-06-16 10:47] LABS: Add Urine Microscopic? YES
[2022-06-16] MEDS: iohexol 350 mg/mL 100 mL Btl IV (10:48)
[2022-06-16 10:56] LABS: Add Urine Culture? No; RBC Urine 0-4 /hpf (0-2); Squamous Epithelial Cell Urine 0-4 /hpf (0-5); WBC Urine 0-4 /hpf (0-5)
[2022-06-16 11:08] LABS: Troponin(5th) Baseline 22 ng/L (0-10)
--- NOTE | 2022-06-16 11:30 | PC.NURSE ---
physician instructed to start heparin drip prior to starting antibiotic.
--- NOTE | 2022-06-16 11:30 | USCV_ITS ---
Ryanne Harvey Age: 56 Gender: F : 1965 Exam Date: 06/16/2022 12:45 Ordering Phys: Tanner Borja DO Technologist: Obie Moreno [place] [facility] [place]: PE HISTORY: Pulmonary embolism. PROCEDURES: Venous duplex imaging was performed in bilateral lower extremities. The following venous structures were evaluated: common femoral vein, profunda vein, proximal portion of the greater saphenous vein, superficial femoral vein, and the popliteal vein. In addition, the posterior tibial and peroneal trunk were evaluated. Serial compression, augmentation maneuvers, and spectral Doppler flow evaluation were performed. FINDINGS: Normal 2-D Doppler and augmentation and compressibility throughout the lower extremity venous structures. Additional imaging through the proximal calf veins also reveals no thrombus. Limited evaluation of the greater saphenous vein is patent with no thrombus. Slow flowing blood in the right greater sapenous and left popliteal veins. Increased risk for developing DVT. CONCLUSIONS No DVT bilateral lower extremities. Dr. Johanna Rod DO (Electronically Signed) Final Date: 16 June 2022 15:11 S
--- NOTE | 2022-06-16 11:30 | USCV_ITS ---
Ryanne Harvey Age: 56 Gender: F : 1965 Exam Date: 06/16/2022 13:16 Ordering Phys: Tanner Borja DO Technologist: Geremias Martinez [place] [facility] [place]: PE BP: 129 / 80 HR: 98 Rhythm: Sinus Technical Quality: Adequate MEASUREMENTS (Male / Female) Normal Values 2D ECHO LV Diastolic Diameter PLAX 3.5 cm 4.2 - 5.9 / 3.9 - 5.3 cm LV Systolic Diameter PLAX 2.8 cm IVS Diastolic Thickness 0.9 cm 0.6 - 1.0 / 0.6 - 0.9 cm IVS Systolic Thickness 1.5 cm LVPW Diastolic Thickness 1.2 cm 0.6 - 1.0 / 0.6 - 0.9 cm LVPW Systolic Thickness 1.4 cm LVOT Diameter 2.0 cm LV Ejection Fraction 2D Teich 42.4 % LV Ejection Fraction MOD 2C 72.6 % LV Ejection Fraction 2C AL 74.0 % LA Diameter 3.0 cm M-MODE Aortic Annulus Diameter 3.3 cm LA Ao Ratio MM 1.0 MV E Point Septal Separation 0.7 cm DOPPLER AV Peak Velocity 127.0 cm/s LVOT Peak Velocity 110.0 cm/s AV Area Cont Eq vti 4.7 cm squared AV Area Cont Eq pk 2.8 cm squared MV Area PHT 4.1 cm squared Mitral E to A Ratio 3.7 MV E' Velocity 102.0 cm/s TR Peak Velocity 681.0 cm/s TR Peak Gradient 185.5 mmHg TV Peak E Velocity 167.0 cm/s Right Atrial Pressure 3.0 mmHg Pulmonary Artery Systolic Pressu 188.5 mmHg FINDINGS Left Ventricle Technically limited quality echocardiogram because of poor ultrasonic windows. LV systolic function is normal with EF of 55 to 60%. No regional wall motion abnormalities are seen. Right Ventricle RV is not well visualized. Grossly normal in size and function. Right Atrium Not well-visualized Left Atrium Not well-visualized Mitral Valve Grossly normal Aortic Valve Not well-visualized. No significant stenosis Tricuspid Valve Not well-visualized. Mild tricuspid regurgitation. Insufficient TR jet to calculate RVSP. Pulmonic Valve Not well-visualized Pericardium Grossly normal Aorta Normal in size IVC CONCLUSIONS Technically limited quality echocardiogram because of poor ultrasonic windows. LV systolic function is normal with EF of 55 to 60%. RV is not well visualized. Grossly normal in size and function Valves are not well visualized. No gross abnormalities seen. No comparison studies are available Collin Connor MD (Electronically Signed) Final Date: 16 June 2022 15:17 S
[2022-06-16 11:54] LABS: Troponin 5 2HR 78.74 ng/L (0-10)
[2022-06-16 11:55] LABS: Lactic Sepsis W/Reflex 1.2 mmol/L (0.5-2.2)
[2022-06-16 11:56] LABS: Ammonia 17 umol/L (11-51)
[2022-06-16 12:01] LABS: Troponin 5 2HR Delta 56.74 ABS# (0-10)
[2022-06-16] MEDS: heparin 5,000 unit/mL INJ 1 mL IV (12:20)
[2022-06-16] MEDS: heparin drip 25,000 UNIT/500 ML PREMIX 32 UNIT IV (12:28)
--- NOTE | 2022-06-16 12:32 | PM.HP ---
Providers/Chief Complaint Admitting Physician: Dionisio Quinn MD Primary Care Provider: OLLIE Byrne Chief Complaint: SEIZURE/ POSTICTAL History of Present Illness Ryanne Harvey is a 56 year old female who presents to the emergency department with history of becoming unresponsive this morning and hypoxic acutely. She had recently had shoulder surgery. She was found initially to have oxygen saturations in the 70s. When she arrived to the emergency department she was incontinent and lethargic. There was some concern that narcotics that she had received after rotator cuff surgery on June 13 and that this could be the cause and she received 2 doses of Narcan with minimal response. There have been no witnessed seizure activity. By the time I evaluated her she was sleepy but responsive. She was able to tell me she did not feel any chest discomfort currently. She has no prior history of pulmonary embolism or DVT. relates she has had a CVA in the past. He believes her mother was treated with Coumadin for issues with clots. She has had no black or tarry stools or blood in her stool lately. In the emergency department the patient received steroids and Benadryl secondary to history of iodine allergy, a dose of Levaquin, and heparin drip was initiated. Review of Systems General: Reports: 10 or more systems reviewed and unremarkable except in HPI and below Const: Denies: fever(s) or chills Eyes: Denies: change in vision ENMT: Denies: throat pain Card: Denies: chest pain Resp: Reports: dyspnea GI: Denies: abdominal pain : Denies: flank pain Musc: Denies: neck pain Skin/Breast: Denies: rash Neuro: Denies: headache(s) Psych: Denies: anxiety or depression Endo: Denies: polyuria Tyler/Lymph: Denies: easy bruising All/Imm: Denies: urticaria Medications/Allergies Home Medications Medication Instructions Recorded Confirmed Last Taken Type CAM WALKER #1 ea 01/13/20 06/16/22 Unknown Rx biotin 10,000 mcg capsule 10,000 mcg PO DAILY 11/22/21 06/16/22 06/15/22 History cholecalciferol (vitamin D3) 1,250 50,000 unit PO .weekly #12 caps 01/26/22 06/16/22 06/12/22 Rx mcg (50,000 unit) capsule levothyroxine 50 mcg tablet 50 mcg PO DAILY #30 tabs 01/26/22 06/16/22 06/15/22 Rx trazodone 50 mg tablet 25 - 50 mg PO BEDTIME PRN Sleep 01/27/22 06/16/22 06/12/22 History lidocaine 5 % topical patch 1 patch topical DAILY #30 ea 02/28/22 06/16/22 Unknown Rx (Lidoderm) hydroxychloroquine 200 mg tablet 200 mg PO BID #60 tabs 03/30/22 06/16/22 06/15/22 Rx Spectrum AFO with T-strap #1 ea 04/25/22 06/16/22 Unknown Rx atorvastatin 20 mg tablet 20 mg PO DAILY #90 tabs 05/08/22 06/16/22 06/15/22 Rx omeprazole 20 mg capsule,delayed 20 mg PO BID 06/16/22 06/16/22 06/15/22 History release tramadol 50 mg tablet 50 - 100 mg PO Q4H PRN pain 06/16/22 06/16/22 06/15/22 History Allergies Allergy/AdvReac Type Severity Reaction Status Date / Time iodine Allergy Severe ALGY-Anaphy Verified 06/16/22 09:09 laxis acetaminophen [From Percocet] Allergy ALGY-Hives Verified 06/16/22 09:09 aspirin Allergy ALGY-Hives Verified 06/16/22 09:09 hydrocodone [From Vicodin] Allergy Unknown Verified 06/16/22 09:09 NSAIDS (Non-Steroidal Allergy ADR-Nausea Verified 06/16/22 09:09 Anti-Inflamma oxycodone [From Percocet] Allergy ALGY-Hives Verified 06/16/22 09:09 Penicillins Allergy ALGY-Rash Verified 06/16/22 09:09 PFSH Acute PFSH: Medical History (Updated 06/16/22 @ 12:47 by Dionisio Quinn MD) Cervicalgia Chronic back pain CVA (cerebral vascular accident) DJD (degenerative joint disease) Hyperlipemia Hypothyroidism Obesity Rheumatoid arthritis Surgical History (Updated 06/16/22 @ 12:37 by Dionisio Quinn MD) History of rotator cuff surgery Hx of appendectomy Hx of tubal ligation Family History Father , age 33 Cancer Other CAD (coronary artery disease) Diabetes Hypertension Rheumatoid arthritis Stroke Denies family history of Lupus Hyperlipidemia Chronic kidney disease (CKD) Social History Smoking and tobacco status: never smoked Second hand smoke exposure: Yes Alcohol intake: never Lives independently: Yes Household members: spouse Housing: House Marital status: Current occupational status: employed Current occupation: [employer] Current occupational exposures/hazards: No History of recent travel: Yes Details: [place] Out of state: Yes Current gender identity: Female Vitals/I&O/Wt Last Vital Signs Temp 97.8 F 06/16/22 07:55 Pulse 101 H 06/16/22 07:55 Resp 8 L 06/16/22 07:55 BP 104/65 06/16/22 07:55 Pulse Ox 74 L 06/16/22 07:55 O2 Del Method 06/16/22 07:55 Weight last 48 hrs Weight 113.398 kg Physical Exam Narrative: General exam is a white female, on 6 L of oxygen, who responds appropriately but in a very quiet voice. HEENT: Atraumatic and normocephalic. Pupils equally round. Oropharynx clear. Neck is supple no lymphadenopathy thyromegaly Cardiovascular regular rate and rhythm, heart sounds distant Lungs clear without wheezing or crackles. Lung sounds distant Abdomen is soft nontender positive bowel sounds. No obvious organomegaly exams deferred. Chau noted Extremities 1+ edema bilaterally. No cyanosis or clubbing. Skin no rash Neuro no obvious focal deficits Urinary Catheter Management: Chau: Cath Placed During This Visit: yes Urinary Catheter Date of Insertion: 06/16/22 Urinary Catheter Time of Insertion: 10:41 Data : 06/16/22 08:10 06/16/22 08:10 Other Labs: ABG demonstrates pH 7.42, PCO2 44, PO2 of 66 on 4 L LFTs normal with exception of alk phos of 109 Initial troponin 22 with repeat of 78 Urinalysis 0-4 whites 0-4 reds Chest x-ray question right lung pneumonia. CT head no acute findings CTA chest multiple pulmonary emboli with evidence of right heart strain, consolidation right lung question pneumonia or pulmonary infarct. Other incidental findings. Initial EKG sinus rhythm, normal axis, small Q waves inferiorly Micro: Microbiology 06/16/22 12:00 Blood Culture - Preliminary Blood SPECIMEN COLLECTED A&P Assessment and plan (1) Pulmonary embolism: Patient with evidence of pulmonary emboli by CTA with right heart strain. This certainly explains her presentation with episode of unresponsiveness and hypoxia. Check echocardiogram, venous duplex Heparin drip Admission to ICU Oxygen as needed Discussed with family in detail serious nature of her condition Troponin noted to be elevated as well consistent with heart strain. Although this episode of pulmonary embolism could be considered provoked secondary to recent surgery, her family history, her past history of stroke and autoimmune history are concerning enough anticoagulation for life or detailed evaluation for thrombotic disorders. (2) Acute respiratory failure with hypoxia: Secondary to pulmonary embolism Wean oxygen as tolerated Plan Other medical problems as outlined in past medical history Full code Heparin will suffice for DVT prophylaxis Attestations Medical Necessity Statement*: Will require greater than 2 midnight stay for evaluation and treatment of pulmonary embolism with right heart strain Critical Care Time: The high probability of a clinically significant, sudden or life threatening deterioration of the patient's [vascular, pulmonary] system(s) required my full and direct attention, intervention and personal management. The critical care time is as shown. This time is in addition to time spent performing any reported procedures but includes the following: [x] Data and vital sign review and interpretation [x] Patient assessment, examination and intervention [x] Documentation [x] Medication orders and management Critical Care Time (min): 60 Coding Level of Care Code Acute Livestock Farm Workers for Edgar Abdi Diagnoses Pulmonary embolism I26.99 Acute respiratory failure with hypoxia J96.01
--- NOTE | 2022-06-16 12:35 | ECG_ITS ---
[facility] Test Date: 2022-06-16 Pat Name: Ryanne Harvey Department: Room: [facility] Gender: Female Children'S Author: : 1965 Requested By: Tanner Silva Order Number: [id number] Betty MD: Jolie Farley M.D. Measurements Intervals Kim Rate: 99 P: 48 NC: 195 QRS: 72 QRSD: 94 T: 30 QT: 344 QTc: 442 Interpretive Statements SINUS RHYTHM NONSPECIFIC T-WAVE ABNORMALITY Compared to ECG 06/16/2022 10:26:25 T-wave abnormality now present Sinus tachycardia no longer present Electronically Signed On 06-16-2022 19:12:39 CDT by Jolie Farley M.D. [id number]
[2022-06-16 13:11] LABS: Estmated Average Glucose 114; Hemoglobin A1C 5.6 % (4.0-6.0)
[2022-06-16] MEDS: perflutren protein-a microsphr 0.22 mg/mL SDV 3 mL IV (13:43)
[2022-06-16] MEDS: sodium chloride 0.9% 1,000 ML 75 ML IV (14:21)
[2022-06-16] MEDS: metroNIDAZOLE IV 500 MG/100 ML PREMIX 100 MG IV ×2 (14:39→20:25)
[2022-06-16] MEDS: levofloxacin-dextrose 5 % 750 MG/150 ML PREMIX 100 MG IV (14:39)
[2022-06-16 15:11] LABS: Troponin 5 6HR 66.94 ng/L (0-10)
[2022-06-16 15:22] LABS: Troponin 5 6HR Delta 44.94 ng/L (0-12)
--- NOTE | 2022-06-16 16:13 | ECG_ITS ---
[facility] Test Date: 2022-06-16 Pat Name: Ryanne Harvey Department: Room: [facility] Gender: Female Special Officer Automat: : 1965 Requested By: Tanner Silva Order Number: [id number] Betty MD: Jolie Farley M.D. Measurements Intervals [place] Rate: 91 P: 26 AR: 195 QRS: 68 QRSD: 94 T: 13 QT: 376 QTc: 464 Interpretive Statements SINUS RHYTHM Compared to ECG 06/16/2022 12:35:57 T-wave abnormality no longer present Electronically Signed On 06-16-2022 19:13:01 CDT by Jolie Farley M.D. [id number]
[2022-06-16 19:30] LABS: Partial Thromboplastin Time 164.5 SECONDS (23.9-36.7)
[2022-06-17] VITALS (89 sets, daily range): BP systolic 108–164; BP diastolic 62–90; PULSE 64–91; RESP 10–181; TEMP 36.7; O2SAT 95–100
[2022-06-17 00:30] LABS: Partial Thromboplastin Time 27.6 SECONDS (23.9-36.7)
[2022-06-17] MEDS: heparin 5,000 unit/mL INJ 1 mL IV (01:14)
[2022-06-17] MEDS: heparin drip 25,000 UNIT/500 ML PREMIX 28 UNIT IV (01:16)
[2022-06-17] MEDS: metroNIDAZOLE IV 500 MG/100 ML PREMIX 100 MG IV ×4 (01:31→20:48)
[2022-06-17 03:58] LABS: Basophils % 0.2 %; Eosinophils % 0.1 %; Hematocrit 32.4 % (37.0-47.0); Hemoglobin 10.4 g/dL (11.5-15.3); Lymphocytes # 2.3 10^3/uL (0.8-4.8); Lymphocytes % 24.2 %; Mean Corpuscular HGB Conc 32.1 g/dL (30.0-36.0); Mean Corpuscular Hemoglobin 28.3 pg (28.0-34.0); Mean Corpuscular Volume 88.3 fl (81-99); Mean Platelet Volume 10.7 fL (7.4-10.4); Monocytes # 0.8 10^3/uL (0.2-0.9); Monocytes % 8.5 %; Neutrophils # 6.17 10^3/uL (1.8-7.7); Neutrophils % 66.4 %; Nucleated Red Blood Cells % 0 %; Platelet Count 209 10^3/cmm (130-400); Red Blood Count 3.67 10^6/uL (4.1-5.3); Red Cell Distribution Width 14.3 % (12.1-15.1); White Blood Count 9.3 10^3/uL (4.0-10.0)
[2022-06-17] MEDS: sodium chloride 0.9% 1,000 ML 75 ML IV (04:11)
[2022-06-17 08:11] LABS: Partial Thromboplastin Time 96.6 SECONDS (23.9-36.7)
[2022-06-17 08:22] LABS: Albumin Level 2.7 g/dL (3.5-5.2); Alkaline Phosphatase 90 U/L (35-105); Blood Urea Nitrogen 10 mg/dL (6-20); Calcium 8.6 mg/dL (8.5-10.5); Carbon Dioxide 23 mmol/L (22-29); Chloride 105 mmol/L (98-107); Globulin 2.6 g/dL (1.3-4.6); Glomerular Filtration Rate 163.9 mL/min (90-130); Glucose 104 mg/dL (65-115); Magnesium 2.1 mg/dL (1.7-2.3); Osmolality Calculated 285 mOsm/kg (285-295); Sodium 138 mmol/L (136-145); Total Bilirubin 0.3 mg/dL (0.15-1.2); Total Protein 5.3 g/dL (6.6-8.7)
[2022-06-17 08:28] LABS: Anion Gap 14.1 (5-19); Aspartate Amino Transferase 22 U/L (0-32)
[2022-06-17 08:29] LABS: Alanine Aminotransferase 24 U/L (0-33); Potassium 4.1 mmol/L (3.5-5.1)
[2022-06-17] MEDS: atorvastatin 40 mg Tablet 20 MG PO (08:47)
[2022-06-17] MEDS: levothyroxine 50 mcg Tablet PO (08:47)
[2022-06-17] MEDS: pantoprazole DR 40 mg Tablet PO (08:47)
--- NOTE | 2022-06-17 10:40 | PC.NURSE ---
[address] Herr to report patient's c/o chest pain. Orders for troponin level, EKG, Tylenol, and cardiac diet.
--- NOTE | 2022-06-17 10:43 | ECG_ITS ---
[facility] Test Date: 2022-06-17 Pat Name: Ryanne Harvey Department: Room: [facility] Gender: Female Calibration Specialist: : 1965 Requested By: Eduardo Herr Order Number: [id number] Reading MD: Collin Connor M.D. Measurements Intervals [place] Rate: 70 P: 32 GA: 198 QRS: 63 QRSD: 98 T: 16 QT: 396 QTc: 429 Interpretive Statements SINUS RHYTHM POSSIBLE LATERAL MYOCARDIAL INFARCTION , PROBABLY OLD [30 ms Q WAVE IN I/aVL/V5/V6] Compared to ECG 06/16/2022 16:28:03 Myocardial infarct finding now present Electronically Signed On 06-18-2022 22:03:20 CDT by Collin Connor M.D. [id number]
[2022-06-17] MEDS: acetaminophen 325 mg Tablet 650 MG PO (11:24)
[2022-06-17] MEDS: heparin drip 25,000 UNIT/500 ML PREMIX 22 UNIT IV (11:27)
[2022-06-17] MEDS: levofloxacin-dextrose 5 % 750 MG/150 ML PREMIX 100 MG IV (14:23)
[2022-06-17 14:37] LABS: Partial Thromboplastin Time 59.1 SECONDS (23.9-36.7)
[2022-06-17 14:43] LABS: Troponin T (5th) Once 24 ng/L (0-10)
--- NOTE | 2022-06-17 16:15 | P.PN_ITS ---
Subjective Subjective: Having pleuritic chest discomfort, dry cough. Denies hemoptysis. He is hungry, has been n.p.o. No GI complaints. Vitals/I&O/Wt Last Vital Signs Temp 98.1 F 06/17/22 15:50 Pulse 87 06/17/22 15:50 Resp 16 06/17/22 15:50 BP 124/79 06/17/22 15:50 Pulse Ox 99 06/17/22 15:50 O2 Del Method 06/17/22 15:50 O2 Flow Rate 5 06/16/22 14:00 06/17/22 06/17/22 06/17/22 06:59 14:59 22:59 Intake Total 1100 / 1677.733 671.333 / 925.688 6915 / 1921.333 Output Total 650 / 1300 900 / 900 Balance 450 / 377.733 -228.667 / -604.304 5496 / 1021.333 Weight last 48 hrs Weight 101.151 kg Weight 100.726 kg Weight 113.398 kg Physical Exam Narrative: Accompanied by family. Const: COMMON NORMALS: patient oriented x3 and alert GENERAL APPEARANCE: cooperative NUTRITIONAL APPEARANCE: obese ORIENTATION/CONSCIOUSNESS: Yes awake HENMT: COMMON NORMALS: oropharynx normal Neck/C-Spine: COMMON NORMALS: no JVD Resp: COMMON NORMALS: normal respiratory effort and clear to auscultation bilaterally AUSCULTATION: clear to auscultation bilaterally Cardio: COMMON NORMALS: no JVD, regular rhythm, S1 normal heart sound present, S2 normal heart sound present and No murmurs present (Cardio) RHYTHM: regular rhythm HEART SOUNDS: S1 normal heart sound present and S2 normal heart sound present GI: COMMON NORMALS: Normal to inspection, nondistended, normoactive bowel sounds present, Soft to palpation and non-tender PALPATION: Yes Soft to palpation Extremity: COMMON NORMALS: no joint enlargement and no pedal edema Neuro: COMMON NORMALS: patient oriented x3 and moves all extremities SENSORIUM/ORIENTATION: Yes alert Skin: COMMON NORMALS: no rashes or lesions noted GENERAL SKIN EXAM: no rashes or lesions noted Urinary Catheter Management: Chau: Cath Placed During This Visit: yes Reason for Continuing Indwelling Catheter: Accurate Measurement of Urinary Output in Critically Ill Patients Urinary Catheter Date of Insertion: 06/16/22 Urinary Catheter Time of Insertion: 10:41 Data : 10/01/22 02:45 06/17/22 07:18 Micro: Microbiology 06/16/22 12:00 Blood Culture - Preliminary Blood NEGATIVE TO DATE A&P Assessment and plan (1) Pulmonary embolism: Persistent hypoxia, continue to require 5 L nasal cannula oxygen. Dry cough, pleuritic chest pain. Maintaining blood pressure. RV strain noted on CT, but grossly RV size and function appear normal on TTE. Continue anticoagulation. Continue oxygen support, wean down as tolerating. Will need oxygen at discharge. Discussed with her also transition today to oral anticoagulation. Continue care on medical floor. Although this episode of pulmonary embolism could be considered provoked secondary to recent surgery, her family history, her past history of stroke and autoimmune history are concerning enough anticoagulation for life or detailed evaluation for thrombotic disorders. (2) Acute respiratory failure with hypoxia: Secondary to pulmonary embolism Wean oxygen as tolerated Plan Other medical problems as outlined in past medical history Consolidation right lower lobe: Continues on antibiotics for possibility of pneumonia. However, findings may be secondary to PE. Discussed with her. Incidentally noted probable hepatic steatosis. Incidentally noted CBD dilation. Possibly congestive changes. No abdominal pain. Liver parameters normal. Consider follow-up imaging or imaging case of symptoms. Follow-up with primary provider. Moderate hiatal hernia: Incidentally noted on CT. Follow-up with primary provider Full code Attestations Medical Necessity Statement*: Continue admission for assessment management of multiple PE, hypoxia. Coding Level of Care Code Acute Glazing Superintendent for Edgar Abdi Diagnoses Pulmonary embolism I26.99 Acute respiratory failure with hypoxia J96.01
[2022-06-17] MEDS: apixaban 5 mg Tablet 10 MG PO (20:48)
[2022-06-17] MEDS: morphine 4 mg/mL SDV 1 mL 2 MG IVP (21:52)
[2022-06-17 22:31] LABS: Partial Thromboplastin Time 62.3 SECONDS (23.9-36.7)
[2022-06-18] VITALS (7 sets, daily range): BP systolic 112–145; BP diastolic 68–83; PULSE 84–96; RESP 16–23; TEMP 36.4–37.4; O2SAT 92–99
--- NOTE | 2022-06-18 00:39 | PC.NURSE ---
Heparin Drip Heparin drip shut off at this time d/t order being discontinued.
[2022-06-18] MEDS: metroNIDAZOLE IV 500 MG/100 ML PREMIX 100 MG IV ×2 (03:14→09:36)
[2022-06-18 04:22] LABS: Hemoglobin 10.9 g/dL (11.5-15.3); Platelet Count 238 10^3/cmm (130-400)
[2022-06-18 04:47] LABS: Alanine Aminotransferase 26 U/L (0-33); Albumin Level 3.4 g/dL (3.5-5.2); Alkaline Phosphatase 103 U/L (35-105); Anion Gap 11.7 (5-19); Aspartate Amino Transferase 20 U/L (0-32); Blood Urea Nitrogen 12 mg/dL (6-20); Carbon Dioxide 31 mmol/L (22-29); Chloride 102 mmol/L (98-107); Globulin 2.4 g/dL (1.3-4.6); Glomerular Filtration Rate 126.7 mL/min (90-130); Glucose 113 mg/dL (65-115); Osmolality Calculated 293 mOsm/kg (285-295); Potassium 3.7 mmol/L (3.5-5.1); Sodium 141 mmol/L (136-145); Total Bilirubin 0.3 mg/dL (0.15-1.2); Total Protein 5.8 g/dL (6.6-8.7)
[2022-06-18] MEDS: pantoprazole DR 40 mg Tablet PO (09:35)
[2022-06-18] MEDS: apixaban 5 mg Tablet 10 MG PO ×2 (09:35→21:05)
[2022-06-18] MEDS: levothyroxine 50 mcg Tablet PO (09:35)
[2022-06-18] MEDS: atorvastatin 40 mg Tablet 20 MG PO (09:35)
[2022-06-18] MEDS: acetaminophen 325 mg Tablet 650 MG PO ×2 (09:36→18:05)
--- NOTE | 2022-06-18 15:09 | PM.PN ---
Subjective Subjective: ?She gets dyspneic very easily, states with minimal activity. At rest her oxygenation has been improving. Vitals/I&O/Wt Last Vital Signs Temp 97.5 F L 06/18/22 11:42 Pulse 84 06/18/22 11:42 Resp 18 06/18/22 11:42 BP 133/76 06/18/22 11:42 Pulse Ox 93 06/18/22 11:42 O2 Del Method 06/18/22 11:42 O2 Flow Rate 3 06/18/22 11:42 06/18/22 06/18/22 06/18/22 06:59 14:59 22:59 Intake Total 1190.4 / 3351.733 340 / 340 Output Total 1700 / 3100 Balance -509.6 / 251.733 340 / 340 Weight last 48 hrs Weight 93.44 kg Weight 101.151 kg Physical Exam Narrative: Accompanied by family. Const: COMMON NORMALS: patient oriented x3 and alert GENERAL APPEARANCE: cooperative NUTRITIONAL APPEARANCE: obese ORIENTATION/CONSCIOUSNESS: Yes awake HENMT: COMMON NORMALS: oropharynx normal Neck/C-Spine: COMMON NORMALS: no JVD Resp: COMMON NORMALS: normal respiratory effort and clear to auscultation bilaterally AUSCULTATION: clear to auscultation bilaterally Cardio: COMMON NORMALS: no JVD, regular rhythm, S1 normal heart sound present, S2 normal heart sound present and No murmurs present (Cardio) RHYTHM: regular rhythm HEART SOUNDS: S1 normal heart sound present and S2 normal heart sound present GI: COMMON NORMALS: Normal to inspection, nondistended, normoactive bowel sounds present, Soft to palpation and non-tender PALPATION: Yes Soft to palpation Extremity: COMMON NORMALS: no joint enlargement and no pedal edema Neuro: COMMON NORMALS: patient oriented x3 and moves all extremities SENSORIUM/ORIENTATION: Yes alert Skin: COMMON NORMALS: no rashes or lesions noted GENERAL SKIN EXAM: no rashes or lesions noted Urinary Catheter Management: Chau: Cath Placed During This Visit: yes, but has since been removed by the nurse Reason for Continuing Indwelling Catheter: Decision to DC Catheter Urinary Catheter Date of Insertion: 06/16/22 Urinary Catheter Time of Insertion: 10:41 Date Urinary Catheter Removed: 06/18/22 Time Urinary Catheter Discontinued: 11:07 Data : 06/18/22 03:55 06/18/22 03:55 Micro: Microbiology 06/16/22 11:32 Blood Culture - Preliminary Blood SPECIMEN COLLECTED 06/16/22 12:00 Blood Culture - Preliminary Blood NEGATIVE TO DATE A&P Assessment and plan (1) Pulmonary embolism: She states gets dyspneic with minimal exertion. Deconditioned. Still hypoxic, requiring oxygen supplementation, although at rest oxygenation seems to be gradually improving. Maintaining blood pressures. Currently family do not feel they would be able to manage at home. As she is quite deconditioned we will get assessment with PT, as well as arrangements underway with case management for rehabilitation. Dry cough, pleuritic chest pain. Maintaining blood pressure. RV strain noted on CT, but grossly RV size and function appear normal on TTE. Continue anticoagulation. Continue oxygen support, wean down as tolerating. Will need oxygen at discharge. Continue anticoagulation. Although this episode of pulmonary embolism could be considered provoked secondary to recent surgery, her family history, her past history of stroke and autoimmune history are concerning enough anticoagulation for life or detailed evaluation for thrombotic disorders. (2) Acute respiratory failure with hypoxia: Secondary to pulmonary embolism Wean oxygen as tolerated Plan Other medical problems as outlined in past medical history Consolidation right lower lobe: Continues on antibiotics for possibility of pneumonia. However, findings may be secondary to PE. Discussed with her. We will stop Flagyl. Will check procalcitonin. Reassess chest x-ray. Depending on condition, imaging findings procalcitonin consider de-escalation of antibiotic. Incidentally noted probable hepatic steatosis. Incidentally noted CBD dilation. Possibly congestive changes. No abdominal pain. Liver parameters normal. Consider follow-up imaging or imaging case of symptoms. Follow-up with primary provider. Moderate hiatal hernia: Incidentally noted on CT. Follow-up with primary provider Full code Attestations Medical Necessity Statement*: Continue admission for management of acute respiratory failure with ongoing hypoxia, with PE, possible pneumonia, de-escalation of antibiotics, assessment of functional capacity, disposition planning. Coding Level of Care Code Acute Home Health Clinician for Edgar Abdi Diagnoses Pulmonary embolism I26.99 Acute respiratory failure with hypoxia J96.01
[2022-06-18] MEDS: levofloxacin-dextrose 5 % 750 MG/150 ML PREMIX 100 MG IV (15:21)
[2022-06-18] MEDS: ondansetron 2 mg/ML SDV 2 mL 4 MG IVP (18:05)
[2022-06-19] VITALS (8 sets, daily range): BP systolic 103–147; BP diastolic 63–88; PULSE 69–95; RESP 16–22; TEMP 36.6–37.2; O2SAT 93–99
[2022-06-19 02:19] LABS: Hemoglobin 10.9 g/dL (11.5-15.3)
[2022-06-19 02:49] LABS: Procalcitonin 0.08 ng/mL (0-0.5)
[2022-06-19 03:00] LABS: Alanine Aminotransferase 21 U/L (0-33); Albumin Level 3.1 g/dL (3.5-5.2); Alkaline Phosphatase 103 U/L (35-105); Anion Gap 13.8 (5-19); Aspartate Amino Transferase 18 U/L (0-32); Blood Urea Nitrogen 13 mg/dL (6-20); Calcium 9.1 mg/dL (8.5-10.5); Carbon Dioxide 25 mmol/L (22-29); Chloride 101 mmol/L (98-107); Globulin 2.9 g/dL (1.3-4.6); Glomerular Filtration Rate 163.9 mL/min (90-130); Glucose 120 mg/dL (65-115); Osmolality Calculated 283 mOsm/kg (285-295); Potassium 3.8 mmol/L (3.5-5.1); Sodium 136 mmol/L (136-145); Total Bilirubin 0.4 mg/dL (0.15-1.2)
[2022-06-19] MEDS: apixaban 5 mg Tablet 10 MG PO ×2 (10:23→21:06)
[2022-06-19] MEDS: pantoprazole DR 40 mg Tablet PO (10:24)
[2022-06-19] MEDS: atorvastatin 40 mg Tablet 20 MG PO (10:24)
[2022-06-19] MEDS: levothyroxine 50 mcg Tablet PO (10:24)
--- NOTE | 2022-06-19 14:04 | P.PN_ITS ---
Subjective Subjective: Patient was seen this morning daughter at bedside, continues to complain of shortness of breath with exertion, but she feels that she is doing better, no nausea, no vomiting, does have some chest discomfort with exertion Vitals/I&O/Wt Last Vital Signs Temp 98.3 F 06/19/22 11:13 Pulse 78 06/19/22 11:13 Resp 20 H 06/19/22 11:13 BP 147/88 06/19/22 11:13 Pulse Ox 97 06/19/22 11:13 O2 Del Method 06/19/22 11:13 O2 Flow Rate 3 06/18/22 20:00 06/18/22 06/19/22 06/19/22 22:59 06:59 14:59 Intake Total 830 / 1170 450 / 1620 236 / 236 Balance 830 / 1170 450 / 1620 236 / 236 Weight last 48 hrs Weight 93.44 kg Weight 93.44 kg Physical Exam Const: COMMON NORMALS: no acute distress and patient oriented x3 Resp: COMMON NORMALS: normal respiratory effort, No retractions, No use of accessory muscles and clear to auscultation bilaterally AUSCULTATION: clear to auscultation bilaterally Cardio: COMMON NORMALS: regular rate, regular rhythm, S1 normal heart sound present and S2 normal heart sound present RATE: regular rate RHYTHM: regular rhythm HEART SOUNDS: S1 normal heart sound present and S2 normal heart sound present GI: COMMON NORMALS: Normal to inspection, nondistended, normoactive bowel sounds present, non-tender, no masses and no bruits Neuro: COMMON NORMALS: patient oriented x3 Psych: COMMON NORMALS: mental status grossly normal Urinary Catheter Management: Chau: Cath Placed During This Visit: yes, but has since been removed by the nurse Reason for Continuing Indwelling Catheter: Decision to DC Catheter Urinary Catheter Date of Insertion: 06/16/22 Urinary Catheter Time of Insertion: 10:41 Date Urinary Catheter Removed: 06/18/22 Time Urinary Catheter Discontinued: 11:07 Data : 06/19/22 01:51 06/19/22 01:51 Micro: Microbiology 06/16/22 11:32 Blood Culture - Preliminary Blood NEGATIVE TO DATE A&P Assessment and plan (1) Pulmonary embolism: She states gets dyspneic with minimal exertion. Deconditioned. Today she is off oxygen, although at rest oxygenation seems to be gradually improving. Ma intaining blood pressures. Currently family do not feel they would be able to manage at home. As she is quite deconditioned we will get assessment with PT, as well as arrangements underway with case management for rehabilitation. Dry cough, pleuritic chest pain. Maintaining blood pressure. RV strain noted on CT, but grossly RV size and function appear normal on TTE. Continue anticoagulation. Continue oxygen support, wean down as tolerating. Will need oxygen at discharge. Continue anticoagulation. We will give Lasix for pitting edema Although this episode of pulmonary embolism could be considered provoked secondary to recent surgery, her family history, her past history of stroke and autoimmune history are concerning enough anticoagulation for life or detailed evaluation for thrombotic disorders. (2) Acute respiratory failure with hypoxia: Secondary to pulmonary embolism Wean oxygen as tolerated Plan Other medical problems as outlined in past medical history Consolidation right lower lobe: Continues on antibiotics for possibility of pneumonia. However, findings may be secondary to PE. Discussed with her. We will stop Flagyl. Will check procalcitonin. Reassess chest x-ray. Depending on condition, imaging findings procalcitonin consider de-escalation of antibiotic. Incidentally noted probable hepatic steatosis. Incidentally noted CBD dilation. Possibly congestive changes. No abdominal pain. Liver parameters normal. Consider follow-up imaging or imaging case of symptoms. Follow-up with primary provider. Moderate hiatal hernia: Incidentally noted on CT. Follow-up with primary p carlene Full code Attestations Medical Necessity Statement*: Patient requires hospitalization for bilateral pulm embolism, deconditioning, fluid overload, requiring Lasix therapy Coding Level of Care Code Acute Specialty Development Consultant for [facility] Diagnoses Pulmonary embolism I26.99 Acute respiratory failure with hypoxia J96.01
[2022-06-19] MEDS: FUROsemide 10 mg/mL SDV 4mL 40 MG IVP (14:33)
[2022-06-19] MEDS: morphine 4 mg/mL SDV 1 mL 2 MG IVP (14:33)
[2022-06-20 00:53] VITALS: BP 98/64; PULSE 91; RESP 22; TEMP 36.7; O2SAT 93
[2022-06-20 05:00] VITALS: BP 101/65; PULSE 79; RESP 18; TEMP 36.6; O2SAT 93
[2022-06-20 05:05] LABS: Basophils # 0.1 10^3/uL (0.0-0.1); Basophils % 0.5 %; Eosinophils # 0.2 10^3/uL (0.0-0.8); Hematocrit 35.1 % (37.0-47.0); Hemoglobin 11.5 g/dL (11.5-15.3); Lymphocytes # 2.3 10^3/uL (0.8-4.8); Lymphocytes % 24.9 %; Mean Corpuscular HGB Conc 32.8 g/dL (30.0-36.0); Mean Corpuscular Hemoglobin 28.2 pg (28.0-34.0); Mean Platelet Volume 9.4 fL (7.4-10.4); Monocytes # 0.9 10^3/uL (0.2-0.9); Monocytes % 9.2 %; Neutrophils # 5.71 10^3/uL (1.8-7.7); Nucleated Red Blood Cells % 0 %; Platelet Count 240 10^3/cmm (130-400); Red Blood Count 4.08 10^6/uL (4.1-5.3); Red Cell Distribution Width 14.3 % (12.1-15.1); White Blood Count 9.2 10^3/uL (4.0-10.0)
[2022-06-20 05:28] LABS: Alanine Aminotransferase 24 U/L (0-33); Albumin Level 3.5 g/dL (3.5-5.2); Alkaline Phosphatase 100 U/L (35-105); Aspartate Amino Transferase 21 U/L (0-32); Blood Urea Nitrogen 13 mg/dL (6-20); Calcium 9.2 mg/dL (8.5-10.5); Carbon Dioxide 29 mmol/L (22-29); Chloride 98 mmol/L (98-107); Globulin 2.6 g/dL (1.3-4.6); Glomerular Filtration Rate 126.7 mL/min (90-130); Glucose 110 mg/dL (65-115); NT Pro B Type Natriuretic Pept 92 pg/mL (0-125); Osmolality Calculated 285 mOsm/kg (285-295); Phosphorus 4.2 mg/dL (2.5-4.5); Sodium 137 mmol/L (136-145); Total Bilirubin 0.6 mg/dL (0.15-1.2); Total Protein 6.1 g/dL (6.6-8.7)
[2022-06-20] MEDS: levothyroxine 50 mcg Tablet PO (08:01)
[2022-06-20] MEDS: atorvastatin 40 mg Tablet 20 MG PO (08:01)
[2022-06-20] MEDS: pantoprazole DR 40 mg Tablet PO (08:01)
[2022-06-20] MEDS: apixaban 5 mg Tablet 10 MG PO (08:02)
[2022-06-20 08:10] VITALS: BP 106/69; PULSE 80; RESP 18; TEMP 36.8; O2SAT 92
--- NOTE | 2022-06-20 12:11 | P.DS_ITS ---
Discharge Providers Date of Admission: 06/16/22 14:08 Date of Discharge: June 20, 2022 Attending Provider at Admission: Dionisio Quinn MD Attending Provider at Discharge: Adam Cavazos MD Primary Care Provider: OLLIE Byrne Diagnoses at Discharge Discharge Diagnosis (1) Pulmonary embolism: Status: Acute (2) Acute respiratory failure with hypoxia: Status: Acute Reason for Visit Reason for Visit: SEIZURE/ POSTICTAL Hospital Course Hospital Course This is a 56-year-old female with past medical history of obesity, hypothyroidism, hepatic steatosis, who presents to [facility] due to shortness of breath. Patient was admitted to [facility] due to bilateral pulmonary emboli, with right heart strain, received anticoagulant therapy, close clinical monitoring. Patient overall had a slow clinical progress, oxygen was weaned, ambulation increased, shortness of breath improved, did require intermittent diuresis. Echocardiogram showed RV size and function appear to be normal. Patient will be discharged on Eliquis therapy with close follow-up with primary care provider as outpatient. In terms of the etiology behind her pulmonary embolism, venous ultrasounds were negative for DVT, she recently had shoulder surgery however it still calls into question the etiology, due to how extensive they are. I will have patient follow-up with hematology oncology for hypercoagulability work-up. Patient was advised if she were to have bloody or black stools go to the emergency room, to have a primary care provider recheck your hemoglobin in 1 week. Initially there was plans for pat ient to go to assisted facility, due to weakness and shortness of breath. However patient's ambulatory status improved, symptomatology improved, thus she was discharged home. Physical Exam Const: COMMON NORMALS: no acute distress and patient oriented x3 Resp: COMMON NORMALS: normal respiratory effort, No retractions, No use of accessory muscles and clear to auscultation bilaterally AUSCULTATION: clear to auscultation bilaterally Cardio: COMMON NORMALS: regular rate, regular rhythm, S1 normal heart sound present and S2 normal heart sound present RATE: regular rate RHYTHM: regular rhythm HEART SOUNDS: S1 normal heart sound present and S2 normal heart sound present GI: COMMON NORMALS: Normal to inspection, nondistended, normoactive bowel sounds present and non-tender Extremity: COMMON NORMALS: no pedal edema Neuro: COMMON NORMALS: patient oriented x3 Psych: COMMON NORMALS: mental status grossly normal Urinary Catheter Management: Chau: Cath Placed During This Visit: yes, but has since been removed by the nurse Reason for Continuing Indwelling Catheter: Decision to DC Catheter Urinary Catheter Date of Insertion: 06/16/22 Urinary Catheter Time of Insertion: 10:41 Date Urinary Catheter Removed: 06/18/22 Time Urinary Catheter Discontinued: 11:07 Discharge Data Studies Completed and Pending Completed Studies During Hospitalization Category Date Time Status CT angio chest PE protcl [id number] Stat Cat Scan 06/16/22 09:[address] head wo con* [id number] Stat Cat Scan 06/16/22 08:26 Completed XR chest 1V portable [id number] Stat Exams 06/16/22 08:26 Completed CV. echo wo/w contrast [id number] Routine Ultrasound 06/16/22 11:30 Completed US venous duplex lower extremity bilat [CV venous Ultrasound 06/16/22 11:30 [place] [id number]] Stat Pending at discharge Category Date Time Status Blood Culture Stat Lab 06/16/22 11:32 Results Complete Blood Count w/Auto AM LABS Lab 06/21/22 04:00 Ordered Complete Blood Count w/Auto AM LABS Lab 06/22/22 04:00 Ordered Comprehensive Metabolic Panel AM LABS Lab 06/21/22 04:00 Ordered Comprehensive Metabolic Panel AM LABS Lab 06/22/22 04:00 Ordered Magnesium AM LABS Lab 06/21/22 04:00 Ordered Magnesium AM LABS Lab 06/22/22 04:00 Ordered NT Pro B Type Natriuretic Pept QAM Lab 06/21/22 06:00 Ordered NT Pro B Type Natriuretic Pept QAM Lab 06/22/22 06:00 Ordered Phosphorus AM LABS Lab 06/21/22 04:00 Ordered Phosphorus AM LABS Lab 06/22/22 04:00 Ordered Sputum Culture Routine Lab 06/16/22 14:08 Uncollected Radiology Impressions Chest X-Ray 06/16/22 08:26 IMPRESSION: 1. Findings suspicious for infiltrate in the medial aspect of the right lower lobe. There may be infiltrate in the left retro- Recommendation: A detailed PA and lateral chest radiograph would be recommended for further workup cardiac region. Head CT 06/16/22 08:26 IMPRESSION: 1. Mild presumed small vessel ischemic disease of indeterminate age. 2. No acute intracranial hemorrhage. Chest CTA 06/16/22 09:39 IMPRESSION: 1. Multiple bilateral pulmonary emboli with evidence of right heart strain. 2. Consolidation in the right lower lobe that may reflect developing pulmonary infarct or pneumonia. 3. Mild ventral subcutaneous edema involving the left upper chest wall/shoulder; likely related to recent surgery. 4. Probable hepatic steatosis. The common bile duct appears dilated. Consider right upper quadrant ultrasound to further assess. 5. Borderline cardiomegaly with coronary artery disease. 6. Moderate hiatal hernia. Findings discussed with YUNG CHATMAN at 06/16/2022 11:28 AM CDT. Laboratory Results WBC 9.2 10^3/uL (4.0-10.0) 06/20/22 04:54 RBC 4.08 10^6/uL (4.1-5.3) L 06/20/22 04:54 Hgb 11.5 g/dL (11.5-15.3) 06/20/22 04:54 Hct 35.1 % (37.0-47.0) L 06/20/22 04:54 MCV 86.0 fl (81-99) 06/20/22 04:54 MCH 28.2 pg (28.0-34.0) 06/20/22 04:54 MCHC 32.8 g/dL (30.0-36.0) 06/20/22 04:54 RDW 14.3 % (12.1-15.1) 06/20/22 04:54 Plt Count 240 10^3/cmm (130-400) 06/20/22 04:54 MPV 9.4 fL (7.4-10.4) 06/20/22 04:54 Neut % (Auto) 62.0 % 06/20/22 04:54 Lymph % (Auto) 24.9 % 06/20/22 04:54 [place] % (Auto) 9.2 % 06/20/22 04:54 Eos % (Auto) 2.0 % 06/20/22 04:54 Baso % (Auto) 0.5 % 06/20/22 04:54 Neut # (Auto) 5.71 10^3/uL (1.8-7.7) 06/20/22 04:54 Lymph # (Auto) 2.3 10^3/uL (0.8-4.8) 06/20/22 04:54 [place] # (Auto) 0.9 10^3/uL (0.2-0.9) 06/20/22 04:54 Eos # (Auto) 0.2 10^3/uL (0.0-0.8) 06/20/22 04:54 Baso # (Auto) 0.1 10^3/uL (0.0-0.1) 06/20/22 04:54 Nucleated RBC % (auto) 0 % 06/20/22 04:54 Nucleated RBCs # 0.0 /100WBC 06/20/22 04:54 APTT 62.3 SECONDS (23.9-36.7) H 06/17/22 22:05 Specimen Type Arterial 06/16/22 09:15 Sample Site Radial, right 06/16/22 09:15 ABG pH 7.42 (7.35-7.45) 06/16/22 09:15 ABG pCO2 44.1 mmHg (35-45) 06/16/22 09:15 ABG pO2 66.7 mmHg (80.0-100.0) L 06/16/22 09:15 ABG HCO3 28.7 mmol/L (22-26) H 06/16/22 09:15 ABG O2 Saturation 92.4 06/16/22 09:15 ABG Base Excess 3.6 mmol/L (-2.0-2.0) H 06/16/22 09:15 Fish Test Pos 06/16/22 09:15 A-a O2 Gradient 3.9 mmHg (5-10) L 06/16/22 09:15 Hematocrit 38.0 % (37-47) 06/16/22 09:15 Hgb O2 Saturation 91.4 % (95-100) L 06/16/22 09:15 Carboxyhemoglobin < 1.0 %THgb (0.4-20.1) 06/16/22 09:15 Methemoglobin 0.4 % (0.4-1.5) 06/16/22 09:15 Total Hemoglobin 12.4 g/dL (12-16) 06/16/22 09:15 Sodium 140.0 mmol/L (131-143) 06/16/22 09:15 Potassium 3.4 mmol/L (3.5-5.0) L 06/16/22 09:15 Glucose 122.0 mg/dL (70-115) H 06/16/22 09:15 Ionized Calcium 1.1 mmol/L (1.1-1.4) 06/16/22 09:15 O2 Delivery Device Nc 06/16/22 09:15 O2 Liters/Min 4.0 % 06/16/22 09:15 Child Adolescent Psychiatrist ID Gd 06/16/22 09:15 Sodium 137 mmol/L (136-145) 06/20/22 04:54 Potassium 4.0 mmol/L (3.5-5.1) 06/20/22 04:54 Chloride 98 mmol/L (98-107) 06/20/22 04:54 Carbon Dioxide 29 mmol/L (22-29) 06/20/22 04:54 Anion Gap 14.0 (5-19) 06/20/22 04:54 BUN 13 mg/dL (6-20) 06/20/22 04:54 Creatinine 0.5 mg/dL (0.5-0.9) 06/20/22 04:54 GFR Calculation 126.7 mL/min (90-130) 06/20/22 04:54 Glucose 110 mg/dL (65-115) 06/20/22 04:54 POC Glucose 135 mg/dL (70-110) H 06/16/22 08:04 Estimat Average Glucose 114 06/16/22 08:10 Hemoglobin A1c 5.6 % (4.0-6.0) 06/16/22 08:10 Calculated Osmolality 285 mOsm/kg (285-295) 06/20/22 04:54 Lactic Acid 1.2 mmol/L (0.5-2.2) 06/16/22 11:22 Calcium 9.2 mg/dL (8.5-10.5) 06/20/22 04:54 Phosphorus 4.2 mg/dL (2.5-4.5) 06/20/22 04:54 Magnesium 2.0 mg/dL (1.7-2.3) 06/20/22 04:54 Total Bilirubin 0.6 mg/dL (0.15-1.2) 06/20/22 04:54 AST 21 U/L (0-32) 06/20/22 04:54 ALT 24 U/L (0-33) 06/20/22 04:54 Alkaline Phosphatase 100 U/L (35-105) 06/20/22 04:54 Ammonia 17 umol/L (11-51) 06/16/22 11:22 Creatine Kinase 41 U/L (26-192) 06/16/22 08:10 Troponin T Gen 5 ng/L 24 ng/L (0-10) H 06/17/22 14:05 Troponin T Baseline 22 ng/L (0-10) H 06/16/22 08:10 Troponin T 120 Minute 78.74 ng/L (0-10) H 06/16/22 11:22 Delta Troponin T 56.74 ABS# (0-10) H* 06/16/22 11:22 Troponin T Hi Sens 6Hr 66.94 ng/L (0-10) H 06/16/22 14:22 Troponin T Hi Sens 6Hr Delta 44.94 ng/L (0-12) H* 06/16/22 14:22 NT-Pro-B Natriuret Pep 92 pg/mL (0-125) 06/20/22 04:54 Total Protein 6.1 g/dL (6.6-8.7) L 06/20/22 04:54 Albumin 3.5 g/dL (3.5-5.2) 06/20/22 04:54 Globulin 2.6 g/dL (1.3-4.6) 06/20/22 04:54 Procalcitonin 0.08 ng/mL (0-0.5) 06/19/22 01:51 Urine Color Yellow (Yellow) 06/16/22 10:40 Urine Appearance Clear (CLEAR) 06/16/22 10:40 Urine pH 5.5 (5-7) 06/16/22 10:40 Ur Specific [place] 1.025 (1.005-1.030) 06/16/22 10:40 Urine Protein Trace (Negative) A 06/16/22 10:40 Urine Glucose (UA) Negative (Normal) 06/16/22 10:40 Urine Ketones Negative (Negative) 06/16/22 10:40 Urine Blood Negative (Negative) 06/16/22 10:40 Urine Nitrate Negative 06/16/22 10:40 Urine Bilirubin Negative (Negative) 06/16/22 10:40 Urine Urobilinogen 0.2 mg/dL (Negative) 06/16/22 10:40 Ur Leukocyte Esterase Negative (Negative) 06/16/22 10:40 Urine RBC 0-4 /hpf (0-2) H 06/16/22 10:40 Urine WBC 0-4 /hpf (0-5) H 06/16/22 10:40 Ur Squamous Epith Cells 0-4 /hpf (0-5) H 06/16/22 10:40 Amorphous Sediment Not Reportable 06/16/22 10:40 Urine Bacteria None /hpf (NONE) 06/16/22 10:40 Vitals Last Vital Signs Temp 98.2 F 06/20/22 08:10 Pulse 80 06/20/22 08:10 Resp 18 06/20/22 08:10 BP 106/69 06/20/22 08:10 Pulse Ox 92 06/20/22 08:10 O2 Del Method 06/20/22 08:10 O2 Flow Rate 3 06/18/22 20:00 Discharge Plan Discharge Patient Disposition: Home Condition: Stable Prescriptions: New Eliquis DVT-PE Treat 30D Start 5 mg (74 tabs) tablets,dose pack See Rx Instructions .ROUTE .COMPLEX Qty: 74 0RF Rx Instructions: orally per package directions Continued (DME) GRAHAM SANDS Qty: 1 0RF Rx Instructions: As directed biotin 10,000 mcg capsule 10,000 mcg PO DAILY hydroxychloroquine 200 mg tablet 200 mg PO BID Qty: 60 3RF lidocaine [Lidoderm] 5 % adhesive patch,medicated 1 patch topical DAILY Qty: 30 0RF Rx Instructions: leave on for 12 hours, then off for 12 hours. (DME) Spectrum AFO with T-strap See Rx Instructions .Route .MEDSUPPLY Qty: 1 0RF Rx Instructions: As directed by FOUZIA&O levothyroxine 50 mcg tablet 50 mcg PO DAILY Qty: 30 2RF cholecalciferol (vitamin D3) 1,250 mcg (50,000 unit) capsule 50,000 unit PO .weekly Qty: 12 0RF atorvastatin 20 mg tablet 20 mg PO DAILY Qty: 90 1RF trazodone 50 mg tablet 25 - 50 mg PO BEDTIME PRN (Reason: Sleep) tramadol 50 mg tablet 50 - 100 mg PO Q4H PRN (Reason: pain) Rx Instructions: LIMIT 8 TABS A DAY omeprazole 20 mg capsule,delayed release(DR/EC) 20 mg PO BID Discharge Orders: Discharge Order (Routine); Ordered 06/20/22 Ordered By: Adam Cavazos Referrals: Tracey Rodgers FNP [Primary Care Provider] - 06/26/22 9:20 am Teodoro Chamberlain MD [Hospitalist] - 1 month (pe) Discharge Diet: Cardiac Discharge Activity: Resume usual activity Patient Instructions: Apixaban (By mouth), Pulmonary Embolism (GEN), Opioid Safety, Pain Management Activity Restrictions/Additional Instructions: - If you develop blood the or black stools please go to the emergency room -If you have worsening shortness of breath please go to the emergency room Discharge Attestations Time Spent in Discharge Care*: less than 30 min Quality Metrics Clinical Quality Measures [ Venous Thromboembolism { Contraindication to Overlap Therapy: Overlap treatment not indicated; VTE Discharge Education: Education about anticoagulant therapy/Care Notes given;}] Coding Level of Care Code Acute Chg FW DC note Diagnoses Pulmonary embolism I26.99 Acute respiratory failure with hypoxia J96.01
== END 2022-06-20 14:00 | disposition home or self-care (01) | DRG 175 ==
LOC: ER 12:02 → ICU 15:43 → MEDSURG 06-17 14:50
PROVIDERS: Internal Medicine; Admitting Provider Internal Medicine; Emergency Provider Family Medicine; PCP Nurse Practitioner Family; Visit Provider Family Medicine
DX: I26.99 Other pulmonary embolism without acute cor pulmonale (principal); J69.0 Pneumonitis due to inhalation of food and vomit; J96.01 Acute respiratory failure with hypoxia; Z86.73 Personal history of transient ischemic attack (TIA), and cerebral infarction without residual deficits; G89.29 Other chronic pain; M54.9 Dorsalgia, unspecified; E78.5 Hyperlipidemia, unspecified; E03.9 Hypothyroidism, unspecified; E66.9 Obesity, unspecified; Z68.39 Body mass index [BMI] 39.0-39.9, adult; M06.9 Rheumatoid arthritis, unspecified; K76.0 Fatty (change of) liver, not elsewhere classified; K44.9 Diaphragmatic hernia without obstruction or gangrene; I51.9 Heart disease, unspecified; Z79.891 Long term (current) use of opiate analgesic
CPT/HCPCS: 36415; 36416; 36600; 51702; 70450; 71045; 71275; 80051; 80053; 81001; 82140; 82330; 82550; 82805; 82962; 83036; 83605; 83735; 83880; 84100; 84145; 84484; 85018; 85025; 85049; 85730; 87040; 93005; 93970; 96365; 96367; 96375; 96376; 97110; 97116; 97161; 99285; C8929; J1200; J1644; J1940; J1956; J2270; J2310; J2405; J2920; J7030; Q9956; Q9967; S0030

== ENCOUNTER 2022-07-02 20:05 | Emergency (ER) | payer MEDICAID, SELFPAY ==
[2022-07-02 20:10] VITALS: BP 116/63; PULSE 93; RESP 16; TEMP 36.9; O2SAT 95; BMI 37.8
--- NOTE | 2022-07-02 20:26 | USR_ITS ---
PROCEDURE INFORMATION: Exam: US Duplex Lower Extremity Veins, Bilateral Exam date and time: 07/02/2022 9:19 PM Age: 56 years old Clinical indication: Pain; Leg, lower; Right; Patient HX: Recently in hospital for pes. Two days of RT leg hurting lower medial area. ; Additional info: Dvt TECHNIQUE: Imaging protocol: Real-time Duplex ultrasound of the bilateral extremities with 2-D hendrickson scale, color Doppler flow and spectral waveform analysis with image documentation. Complete exam focused on the bilateral lower extremity veins. COMPARISON: MR ankle LT wo con* [id number] 04/25/2022 10:19 AM FINDINGS: Right deep veins: Unremarkable. The common femoral, femoral, proximal profunda femoral and popliteal veins are patent without thrombus. Normal Doppler waveforms. Normal compressibility and/or augmentation response. Right superficial veins: Saphenofemoral junction is patent without thrombus. Left deep veins: Unremarkable. The common femoral, femoral, proximal profunda femoral and popliteal veins are patent without thrombus. Normal Doppler waveforms. Normal compressibility and/or augmentation response. Left superficial veins: Saphenofemoral junction is patent without thrombus. Soft tissues: Unremarkable. Other findings: No DVT. US/[place] [id number] IMPRESSION: No DVT.
--- NOTE | 2022-07-02 21:02 | ED_ITS ---
HPI - Extremity Problem General: Chief complaint: Extremity Injury, Lower Stated complaint: right leg pain Time Seen by Provider: 07/02/22 20:51 Source: patient Mode of arrival: ambulatory Limitations: no limitations History of Present Illness: 56-year-old female who was diagnosed with bilateral DVTs along with PE on June 16 she was in the hospital was discharged last week she can take Eliquis states that on her right leg she has been having some pain along with slight swelling and burning sensation she denies any worsening proving factors states pain is a 2 out of 10 currently denies any shortness of breath or chest pain. Associated symptoms: Deny chest pain, fever(s) or rash Review of Systems Const: Denies: fever(s), chills, body aches or change in appetite Eyes: Denies: blurry vision or eye discomfort ENMT: Denies: throat pain or dental pain Card: Denies: chest pain Resp: Denies: dyspnea GI: Denies: abdominal pain, nausea, vomiting or diarrhea : Denies: dysuria Musc: Reports: extremity pain and extremity swelling Skin/Breast: Denies: rash Neuro: Denies: headache(s) Psych: Denies: depression [place]/Lymph: Denies: easy bruising All/Imm: Denies: urticaria PFSH ED PFSH: Medical History Cervicalgia Chronic back pain CVA (cerebral vascular accident) DJD (degenerative joint disease) Hyperlipemia Hypothyroidism Obesity Rheumatoid arthritis Surgical History History of rotator cuff surgery Hx of appendectomy Hx of tubal ligation Family History Father , age 33 Cancer Other CAD (coronary artery disease) Diabetes Hypertension Rheumatoid arthritis Stroke Denies family history of Lupus Hyperlipidemia Chronic kidney disease (CKD) Social History Smoking and tobacco status: never smoked Second hand smoke exposure: Yes Alcohol intake: never Lives independently: Yes Household members: spouse Housing: House Marital status: Current occupational status: employed Current occupation: [employer] Current occupational exposures/hazards: No History of recent travel: Yes Details: [place] Out of state: Yes Current gender identity: Female Physical Exam Const: COMMON NORMALS: no acute distress, patient oriented x3 and healthy appearing HENMT: COMMON NORMALS: normocephalic and atraumatic HEAD & SCALP: normocephalic and atraumatic Eye: COMMON NORMALS: Equal, round and reactive pupils present and EOMs intact bilaterally PUPIL: Yes Equal, round and reactive pupils present Neck/C-Spine: COMMON NORMALS: full ROM and supple Chest: COMMONS NORMALS: normal inspection of the chest and normal palpation of entire chest wall Resp: COMMON NORMALS: normal respiratory effort, No retractions, No use of accessory muscles and clear to auscultation bilaterally AUSCULTATION: clear to auscultation bilaterally Cardio: COMMON NORMALS: regular rate, regular rhythm and No murmurs present (Cardio) RATE: regular rate RHYTHM: regular rhythm GI: COMMON NORMALS: Normal to inspection, nondistended, normoactive bowel sounds present, Soft to palpation, non-tender and no masses PALPATION: Yes Soft to palpation Extremity: COMMON NORMALS: full ROM OTHER: Distal pulses intact slight swelling to right lower leg minimal tenderness to touch no warmth or signs of cellulitis Neuro: COMMON NORMALS: patient oriented x3, moves all extremities and no focal motor deficits Psych: COMMON NORMALS: mental status grossly normal, Normal thought process present and cooperative THOUGHT PROCESS: Normal thought process present Skin: COMMON NORMALS: no rashes or lesions noted and no wounds GENERAL SKIN EXAM: no rashes or lesions noted Course Vital Signs: Vital signs: Vital Signs Temperature 98.5 F 07/02/22 20:10 Pulse Rate 93 07/02/22 20:10 Respiratory Rate 16 07/02/22 20:10 Blood Pressure 116/63 07/02/22 20:10 Pulse Oximetry 95 07/02/22 20:10 Oxygen Delivery Me thod 07/02/22 20:10 MDM - Extremity (Nontraumatic) Medical Decision Making Patient presents here with right leg pain could be from her previous DVT ultrasound here showed no acute findings exam is benign she has follow-up with Dr. Newby tomorrow she is stable for discharge. Lab Data Radiology Impressions Venous Duplex 07/02/22 20:26 IMPRESSION: No DVT. Discharge Plan Discharge Patient Disposition: Home Clinical Impression: Leg pain, right Condition: Stable Prescriptions: No Action (DME) CAM WALKER Qty: 1 0RF Rx Instructions: As directed biotin 10,000 mcg capsule 10,000 mcg PO DAILY hydroxychloroquine 200 mg tablet 200 mg PO BID Qty: 60 3RF lidocaine [Lidoderm] 5 % adhesive patch,medicated 1 patch topical DAILY Qty: 30 0RF Rx Instructions: leave on for 12 hours, then off for 12 hours. (DME) Spectrum AFO with T-strap See Rx Instructions .Route .MEDSUPPLY Qty: 1 0RF Rx Instructions: As directed by FOUZIA&O levothyroxine 50 mcg tablet 50 mcg PO DAILY Qty: 30 2RF cholecalciferol (vitamin D3) 1,250 mcg (50,000 unit) capsule 50,000 unit PO .weekly Qty: 12 0RF atorvastatin 20 mg tablet 20 mg PO DAILY Qty: 90 1RF trazodone 50 mg tablet 25 - 50 mg PO BEDTIME PRN (Reason: Sleep) tramadol 50 mg tablet 50 - 100 mg PO Q4H PRN (Reason: pain) Rx Instructions: LIMIT 8 TABS A DAY omeprazole 20 mg capsule,delayed release(DR/EC) 20 mg PO BID Eliquis DVT-PE Treat 30D Start 5 mg (74 tabs) tablets,dose pack See Rx Instructions .ROUTE .COMPLEX Qty: 74 0RF Rx Instructions: orally per package directions Discharge Orders: Discharge ED (Routine); Ordered 07/02/22 Ordered By: Richard Buckley Referrals: Tracey Rodgers FNP [Primary Care Provider] - 1-3 days Discharge Diet: Advance as tolerated Discharge Activity: Resume usual activity Coding Level of Care Code ED [employer] Insurance Advisor for [facility] Exam Comprehensive
[2022-07-02 22:18] VITALS: BP 121/72; PULSE 87; RESP 16; O2SAT 98
== END 2022-07-02 22:21 | disposition home or self-care (01) ==
PROVIDERS: Emergency Provider Emergency Medicine; PCP Nurse Practitioner Family
DX: M79.604 Pain in right leg (principal); Z79.01 Long term (current) use of anticoagulants; Z86.73 Personal history of transient ischemic attack (TIA), and cerebral infarction without residual deficits; E78.5 Hyperlipidemia, unspecified; Z77.22 Contact with and (suspected) exposure to environmental tobacco smoke (acute) (chronic)
CPT/HCPCS: 93970; 99284

== ENCOUNTER 2022-07-19 08:00 | Oncology outpatient (recurring) (ONCR) | payer MEDICAID, SELFPAY ==
[2022-07-18 15:45] LABS: Basophils # 0.1 10^3/uL (0.0-0.1); Basophils % 0.9 %; Eosinophils # 0.2 10^3/uL (0.0-0.8); Eosinophils % 2.3 %; Hematocrit 40.2 % (37.0-47.0); Hemoglobin 13.2 g/dL (11.5-15.3); Lymphocytes # 2.4 10^3/uL (0.8-4.8); Lymphocytes % 27.8 %; Mean Corpuscular HGB Conc 32.8 g/dL (30.0-36.0); Mean Corpuscular Hemoglobin 28.3 pg (28.0-34.0); Mean Corpuscular Volume 86.1 fl (81-99); Mean Platelet Volume 9.3 fL (7.4-10.4); Monocytes # 0.8 10^3/uL (0.2-0.9); Monocytes % 9.1 %; Neutrophils # 5.06 10^3/uL (1.8-7.7); Neutrophils % 59.3 %; Nucleated Red Blood Cells % 0 %; Platelet Count 300 10^3/cmm (130-400); Red Blood Count 4.67 10^6/uL (4.1-5.3); Red Cell Distribution Width 13.4 % (12.1-15.1); White Blood Count 8.6 10^3/uL (4.0-10.0)
[2022-07-18 15:49] LABS: Erythrocyte Sedimentation Rate 16 mm/hr (0-15)
[2022-07-18 16:23] LABS: Alanine Aminotransferase 36 U/L (0-33); Albumin Level 4.1 g/dL (3.5-5.2); Alkaline Phosphatase 142 U/L (35-105); Anion Gap 13.7 (5-19); Aspartate Amino Transferase 34 U/L (0-32); Blood Urea Nitrogen 9 mg/dL (6-20); C Reactive Protein 10.3 mg/L (0.0-4.9); Calcium 9.8 mg/dL (8.5-10.5); Carbon Dioxide 28 mmol/L (22-29); Chloride 99 mmol/L (98-107); Creatine Phosphokinase 27 U/L (26-192); Globulin 3.2 g/dL (1.3-4.6); Glomerular Filtration Rate 85.9 mL/min (90-130); Glucose 126 mg/dL (65-115); Magnesium 2.1 mg/dL (1.7-2.3); Osmolality Calculated 284 mOsm/kg (285-295); Phosphorus 3.5 mg/dL (2.5-4.5); Potassium 3.7 mmol/L (3.5-5.1); Sodium 137 mmol/L (136-145); Total Bilirubin 0.3 mg/dL (0.15-1.2); Total Protein 7.3 g/dL (6.6-8.7)
[2022-07-18 16:37] LABS: Vitamin B12 640 pg/mL (232-1245)
[2022-07-19 09:25] VITALS: BP 122/78; PULSE 74; RESP 18; TEMP 36.6; O2SAT 98
[2022-07-19] MEDS: enoxaparin 100 mg/mL Syringe SUBCUT (09:28)
--- NOTE | 2022-07-19 13:48 | PC.NURSE ---
Patient came in for the education and injection per Dr Chamberlain for the lovenox 1mg/kg dose of 95mg which was given in upper right quadrant of abdomen with the education and teaching of the correct dosing and scheduling.Rochelle Moffett RN sent in the lovenox 100mg dosing to [facility] at [place]. She was instructed if any issues to call or send a message with voiced understanding.diana
[2022-07-20 13:17] LABS: Immunoglobulin A 143 mg/dL (47-310)
[2022-07-20 13:57] LABS: Quantiferon Mitogen >10.00 IU/mL; Quantiferon Nil 0.02 IU/mL; Quantiferon TB Gold NEGATIVE (NEGATIVE)
[2022-07-20 14:17] LABS: Beef (BOS SPP) Class 0; Galactose-alpha-1,3 IgE <0.10 kU/L (<0.10); Lamb / Mutton (Ovis SPP) IgE <0.10 kU/L (<0.35); Lamb / Mutton Class 0; Pork Class 0
[2022-07-21 05:31] LABS: Gliadin Ab.IgA 3.9 U/mL; Gliadin Ab.IgG <1.0 U/mL
[2022-07-21 05:46] LABS: Tissue Transglutaminase IgA Ab <1.0 U/mL; Tissue transglutaminase Ab.IgG <1.0 U/mL
== END 2022-08-16 23:59 | disposition home or self-care (01) ==
PROVIDERS: Internal Medicine; PCP Nurse Practitioner Family; Visit Provider Internal Medicine Medical Oncology
DX: I26.99 Other pulmonary embolism without acute cor pulmonale (principal); Z79.01 Long term (current) use of anticoagulants
CPT/HCPCS: 36415; 80053; 82550; 82607; 82784; 83516; 83735; 84100; 85025; 85651; 86003; 86008; 86140; 86480; 96372; 96401; J1650

== ENCOUNTER 2022-07-25 08:44 | Outpatient (CLI) | payer MEDICAID, SELFPAY ==
--- NOTE | 2022-07-25 10:30 | CT_ITS ---
WS: [id number] CTA OF THE CHEST WITH PULMONARY EMBOLISM PROTOCOL TECHNIQUE: High-resolution contrast enhanced CTA of the chest with coronal and sagittal reformatted i sushant with pulmonary embolism protocol. MIP images are also reviewed. CLINICAL INFORMATION: pulmonary embolism; compare to previous COMPARISON: CTA June 16, 2022 DLP: 449.[address] scans at [facility] use at least one of these dose optimization techniques: automated e xposure control; mA and/or kV adjustment per patient size (includes targeted exams where dose is matc hed to clinical indication); or iterative reconstruction. FINDINGS: Proximal main pulmonary arteries are normal. Previously described extensive pulmonary embol i have resolved. Main pulmonary arteries are normal. No filling defects in the visualized segmental or subse gmental pulmonary arteries. No evidence of new or progressed pulmonary embolus. Lungs are well aerated. No acute pulmonary infiltrates. No focal pneumonia or pleural fluid. Previous ly described bibasilar compressive atelectasis/infiltrates have resolved. Normal caliber thoracic aorta. Normal descending thoracic aorta. Adrenal glands are normal. Moderate esophageal hiatal hernia. No mediastinal or hilar lymphadenopathy. No axillary lymphadenopathy. Mild thoracic kyphosis. CT/CT angio chest PE protcl [id number] IMPRESSION: 1. Previously described pulmonary emboli have resolved compared to the prior e xamination. No visualized filling defects today. No new or progressed pulmonary embolus. 2. Normal caliber thoracic aorta. 3. Pulmonary infiltrates previously described in the lung bases have resolved. 4. Moderate esophageal hiatal hernia. 5. No other significant changes compared to previous.
[2022-07-25] MEDS: iohexol 350 mg/mL 100 mL Btl IV (10:45)
== END 2022-07-25 08:45 | disposition home or self-care (01) ==
LOC: RAD 08:45
PROVIDERS: PCP Nurse Practitioner Family; Visit Provider Internal Medicine Medical Oncology
DX: I26.99 Other pulmonary embolism without acute cor pulmonale (principal)
CPT/HCPCS: 71275

== ENCOUNTER → 2022-07-26 09:09 | Outpatient (BNVA) | payer MEDICAID, SELFPAY | PROVIDERS: PCP Nurse Practitioner Family; Visit Provider Specialist | DX: M75.02 Adhesive capsulitis of left shoulder (principal); M19.012 Primary osteoarthritis, left shoulder; M75.112 Incomplete rotator cuff tear or rupture of left shoulder, not specified as traumatic; Z98.890 Other specified postprocedural states | CPT/HCPCS: 73030 ==

== ENCOUNTER → 2022-09-04 10:41 | Outpatient (BNVA) | payer MEDICAID, SELFPAY | PROVIDERS: PCP Nurse Practitioner Family; Visit Provider Podiatrist Foot & Ankle Surgery | DX: M76.72 Peroneal tendinitis, left leg (principal); M95.8 Other specified acquired deformities of musculoskeletal system; M25.372 Other instability, left ankle | CPT/HCPCS: 73630 ==

== ENCOUNTER 2022-09-15 14:10 | Outpatient (CLI) | payer MEDICAID, SELFPAY ==
--- NOTE | 2022-09-15 14:30 | US_ITS ---
WS: [email or web address] ULTRASOUND ABDOMEN LIMITED CLINICAL INFORMATION: K83.8 - Other specified diseases of biliary tract COMPARISON: April 25, 2022 FINDINGS: Technically difficult study due to body habitus. Patient unable to roll LLD due to recent s houlder surgery. Liver Size: Enlarged Craniocaudal length: 21.9 cm. Echogenicity: Coarse echogenic Surface nodularity: None. Mass (size and location): None. Bile ducts Intrahepatic ducts: Normal. Common bile duct diameter: 0.6 cm. Gallbladder Normal. Gallstones: None. Gallbladder sludge: None. Gallbladder wall thickening: None. Pericholecystic fluid: None. Sonographic Ruelas sign: Absent. Pancreas Not well visualized Right kidney: Normal. Hydronephrosis: None. Size: 11.4 cm x 5.7 cm x 4.6 cm. Abdominal aorta and IVC Visualized portions are normal. Ascites: None. US/US liver [id number] IMPRESSION: Technically difficult examination due to body habitus. 1. Hepatomegaly. Echogenic heterogeneous liver echotexture likely due to fatty infiltration. 2. No cholelithiasis. No gallbladder wall thickening or pericholecystic fluid. 3. Prominent common bile duct measuring 6 mm. This can be further evaluated MR CP. 4. Common bile duct upper limits of normal measures 6 mm. 5. No hydronephrosis in RIGHT kidney.
== END 2022-09-15 14:11 | disposition home or self-care (01) ==
LOC: RAD 14:11
PROVIDERS: PCP Nurse Practitioner Family; Visit Provider Nurse Practitioner Family
DX: K83.8 Other specified diseases of biliary tract (principal); R16.0 Hepatomegaly, not elsewhere classified
CPT/HCPCS: 76705

== ENCOUNTER → 2022-09-21 15:39 | Outpatient (BNVA) | payer MEDICAID, SELFPAY | PROVIDERS: PCP Nurse Practitioner Family; Visit Provider Nurse Practitioner Family | DX: M25.561 Pain in right knee (principal); M79.641 Pain in right hand | CPT/HCPCS: 73130; 73562 ==

== ENCOUNTER → 2022-10-13 07:32 | Outpatient (BNVA) | payer MEDICAID, SELFPAY | PROVIDERS: PCP Nurse Practitioner Family; Visit Provider Student in an Organized Health Care Education/Training Program | DX: M17.11 Unilateral primary osteoarthritis, right knee (principal) | CPT/HCPCS: 73560; 73565 ==

== ENCOUNTER 2022-10-20 09:04 | Outpatient (CLI) | payer MEDICAID, SELFPAY ==
--- NOTE | 2022-10-20 09:30 | MR_ITS ---
WS: [id number] MRCP (MAGNETIC RESONANCE CHOLANGIOPANCREATOGRAPHY) HISTORY: K83.8 - Other specified diseases of biliary tract COMPARISON: Prior ultrasound 09/15/2022. TECHNIQUE: Multiple sequences are performed to evaluate the intra and extrahepatic ducts. Liver is moderately enlarged measuring 19 cm in length. Diffuse hepatic steatosis. No mass is identif ied within the liver. Visualized portal vein is negative. No ascites surrounding the liver or spleen. Gallbladder is well distended. No intraluminal filling defect. Common bile duct is normal through the pancreatic head. Common bile duct measures 4 mm. Normal pancreatic duct. No pancreatic mass. Normal spleen. No adenopathy or ascites. MR/MR MRCP [id number] IMPRESSION: 1. Normal common bile duct. 2. Normal pancreatic duct. 3. Moderate hepatomegaly with diffuse hepatic steatosis.
== END 2022-10-20 09:05 | disposition home or self-care (01) ==
LOC: RAD 09:06
PROVIDERS: PCP Nurse Practitioner Family; Visit Provider Nurse Practitioner Family
DX: K83.8 Other specified diseases of biliary tract (principal); R16.0 Hepatomegaly, not elsewhere classified; K76.0 Fatty (change of) liver, not elsewhere classified
CPT/HCPCS: 74181

== ENCOUNTER 2022-11-08 15:40 | Oncology outpatient (recurring) (ONCR) | payer MEDICAID, SELFPAY | END 2022-11-14 23:59 | disposition home or self-care (01) | PROVIDERS: PCP Nurse Practitioner Family; Visit Provider Internal Medicine Medical Oncology | DX: I26.99 Other pulmonary embolism without acute cor pulmonale (principal); Z79.01 Long term (current) use of anticoagulants; Z86.73 Personal history of transient ischemic attack (TIA), and cerebral infarction without residual deficits | CPT/HCPCS: 80053; 80061; 82306; 84443; 85025 ==

== ENCOUNTER 2022-12-20 13:02 | Oncology outpatient (recurring) (ONCR) | payer MEDICAID, SELFPAY ==
[2022-12-20 13:50] LABS: Basophils # 0.1 10^3/uL (0.0-0.1); Eosinophils # 0.1 10^3/uL (0.0-0.8); Eosinophils % 1.8 %; Hematocrit 40.5 % (37.0-47.0); Hemoglobin 13.1 g/dL (11.5-15.3); Lymphocytes % 27.5 %; Mean Corpuscular HGB Conc 32.3 g/dL (30.0-36.0); Mean Corpuscular Hemoglobin 27.7 pg (28.0-34.0); Mean Corpuscular Volume 85.6 fl (81-99); Mean Platelet Volume 9.4 fL (7.4-10.4); Monocytes # 0.6 10^3/uL (0.2-0.9); Monocytes % 8.8 %; Neutrophils % 60.4 %; Nucleated Red Blood Cells % 0 %; Platelet Count 324 10^3/cmm (130-400); Red Blood Count 4.73 10^6/uL (4.1-5.3); Red Cell Distribution Width 14.4 % (12.1-15.1); White Blood Count 7.3 10^3/uL (4.0-10.0)
[2022-12-20 14:12] LABS: Albumin Level 4.1 g/dL (3.5-5.2); Anion Gap 13.1 (5-19); Blood Urea Nitrogen 9 mg/dL (6-20); Calcium 9.4 mg/dL (8.5-10.5); Carbon Dioxide 28 mmol/L (22-29); Chloride 104 mmol/L (98-107); Globulin 3.1 g/dL (1.3-4.6); Glomerular Filtration Rate 126.3 mL/min (90-130); Glucose 105 mg/dL (65-115); Osmolality Calculated 291 mOsm/kg (285-295); Potassium 4.1 mmol/L (3.5-5.1); Sodium 141 mmol/L (136-145); Total Bilirubin 0.4 mg/dL (0.15-1.2); Total Protein 7.2 g/dL (6.6-8.7)
[2022-12-20 14:14] LABS: D Dimer 0.74 ug/mIFEU (0-0.59)
[2022-12-20 14:16] LABS: Alanine Aminotransferase 37 U/L (0-33); Alkaline Phosphatase 109 U/L (35-105); Aspartate Amino Transferase 36 U/L (0-32)
[2022-12-23 02:55] LABS: CARDIOLIPIN AB (IGA) <2.0 APL-U/mL; CARDIOLIPIN AB (IGG) <2.0 GPL-U/mL; CARDIOLIPIN AB (IGM) <2.0 MPL-U/mL
[2022-12-23 20:19] LABS: Antithrombin III Activity 114 % normal (80-135)
[2022-12-23 20:24] LABS: PROTEIN C, ACTIVITY 44 % normal (70-180)
[2022-12-25 16:34] LABS: Beta 2 Glycoprotein IGA <2.0 U/mL (<20.0); Beta 2 Glycoprotein IGG <2.0 U/mL (<20.0); Beta 2 Glycoprotein IGM <2.0 U/mL (<20.0)
[2022-12-26 13:30] LABS: Factor 5 Leiden Mutation NEGATIVE
== END 2023-01-14 23:59 | disposition home or self-care (01) ==
PROVIDERS: PCP Nurse Practitioner Family; Visit Provider Internal Medicine Medical Oncology
DX: I26.99 Other pulmonary embolism without acute cor pulmonale (principal)
CPT/HCPCS: 36415; 80053; 81240; 81241; 85025; 85300; 85303; 85378; 86146; 86147

== ENCOUNTER 2023-01-17 09:37 | Outpatient (CLI) | payer MEDICAID, SELFPAY ==
--- NOTE | 2023-01-17 09:45 | MM_ITS ---
WS: [email or web address] Bilateral screening 3D tomosynthesis digital mammogram, 01/17/2023 Clinical Data: SCREENING Comparison: 01/10/2022 Findings: The breast parenchymal pattern shows fibroglandular tissue. No spiculated masses or clustered calcifi cations are seen. There are no secondary signs of carcinoma. There are mole markers on both breasts. MM/[place] [id number] Impression: 1. Negative bilateral mammogram unchanged. 2. Recommend annual screening mammograms. BIRADS: 1-Negative FOLLOW UP: 1 Year Follow-up The CAD counter checker was used.
== END 2023-01-17 09:38 | disposition home or self-care (01) ==
LOC: RAD 09:40
PROVIDERS: PCP Nurse Practitioner Family; Visit Provider Nurse Practitioner Family
DX: Z12.31 Encounter for screening mammogram for malignant neoplasm of breast (principal)
CPT/HCPCS: 77063; 77067

== ENCOUNTER 2023-01-17 09:44 | Oncology outpatient (recurring) (ONCR) | payer MEDICAID, SELFPAY ==
[2023-01-22 12:14] LABS: Protein S Antigen, Total 148 % normal (70-140)
[2023-02-06 10:41] LABS: Miscellaneous Test SEE COMMENTS
== END 2023-02-14 23:59 | disposition home or self-care (01) ==
PROVIDERS: PCP Nurse Practitioner Family; Visit Provider Internal Medicine Medical Oncology
DX: D68.59 Other primary thrombophilia (principal); I26.99 Other pulmonary embolism without acute cor pulmonale
CPT/HCPCS: 36415; 85302; 85305

== ENCOUNTER → 2023-01-24 09:05 | Outpatient (BNVA) | payer MEDICAID, SELFPAY | PROVIDERS: PCP Nurse Practitioner Family; Visit Provider Specialist | DX: M19.012 Primary osteoarthritis, left shoulder (principal); M75.02 Adhesive capsulitis of left shoulder; M75.42 Impingement syndrome of left shoulder; M75.112 Incomplete rotator cuff tear or rupture of left shoulder, not specified as traumatic | CPT/HCPCS: 73030 ==

== ENCOUNTER → 2023-01-25 09:52 | Outpatient (BNVA) | payer MEDICAID, SELFPAY | PROVIDERS: PCP Nurse Practitioner Family; Visit Provider Nurse Practitioner Family | DX: E78.5 Hyperlipidemia, unspecified (principal); R42 Dizziness and giddiness; R60.9 Edema, unspecified; E03.9 Hypothyroidism, unspecified; E55.9 Vitamin D deficiency, unspecified; R73.9 Hyperglycemia, unspecified | CPT/HCPCS: 80053; 80061; 82306; 83036; 83520; 84443; 85025; 85651; 86140 ==

== ENCOUNTER → 2023-01-29 13:24 | Outpatient (BNVA) | payer MEDICAID, SELFPAY | PROVIDERS: PCP Nurse Practitioner Family; Visit Provider Nurse Practitioner Family | DX: R52 Pain, unspecified (principal) | CPT/HCPCS: 73090 ==

== ENCOUNTER → 2023-03-08 10:26 | Outpatient (BNVA) | payer MEDICAID, SELFPAY | PROVIDERS: PCP Nurse Practitioner Family; Visit Provider Nurse Practitioner Family | DX: M25.521 Pain in right elbow (principal) | CPT/HCPCS: 73080 ==

== ENCOUNTER → 2023-05-02 09:05 | Outpatient (BNVA) | payer MEDICAID, SELFPAY | PROVIDERS: PCP Nurse Practitioner Family; Visit Provider Nurse Practitioner Family | DX: E78.5 Hyperlipidemia, unspecified (principal); E03.9 Hypothyroidism, unspecified; R73.09 Other abnormal glucose; E55.9 Vitamin D deficiency, unspecified | CPT/HCPCS: 80053; 80061; 82306; 83036; 84443; 85025 ==

== ENCOUNTER 2023-05-11 14:47 | Outpatient (CLI) | payer MEDICAID, SELFPAY ==
--- NOTE | 2023-05-11 15:00 | USCV_ITS ---
Ryanne Harvey Age: 57 Gender: F : 1965 Exam Date: 05/11/2023 14:58 Ordering Phys: Michael Gunter MD Technologist: Exam Location: [facility] Indication: tia Risk Factors: Previous Vascular Surgery: Right Brachial BP: / Left Brachial BP: / Right Left Velocity (cm/s) Spectral Plaque Velocity (cm/s) Spectral Plaque Syst/Diast Broadening Syst/Diast Broadening 56.20/ 15.40 Prox CCA 71.70 / 20.90 54.00/ 15.40 Mid CCA / 47.30/ 16.40 Distal CCA 55.10 / 12.10 65.10/ 19.70 Prox ICA 72.80 / 18.70 74.90/ 19.70 Mid ICA 64.40 / 23.75 70.30/ 17.10 Distal ICA 56.00 / 19.30 74.30 ECA 111.40 1.33 ICA/CCA 1.02 Antegrade Vertebral Antegrade 48.60/ 14.50 cm/s 23.40/ 6.90 cm/s Tri Subclavian Tri 102.5 52.70 0 CONCLUSIONS Right ICA stenosis <50%. No significant plaque. Left ICA stenosis <50%. No significant plaque. Normal antegrade Doppler flow noted in the right vertebral artery. Normal antegrade Doppler flow noted in the left vertebral artery. Jake Rojo MD (Electronically Signed) Final Date: 11 May 2023 16:03 S
== END 2023-05-11 14:48 | disposition home or self-care (01) ==
PROVIDERS: PCP Nurse Practitioner Family; Visit Provider Psychiatry & Neurology Neurology
DX: R42 Dizziness and giddiness (principal); R55 Syncope and collapse
CPT/HCPCS: 93880

== ENCOUNTER 2023-05-30 10:50 | Outpatient (CLI) | payer MEDICAID, SELFPAY ==
--- NOTE | 2023-05-30 11:45 | MR_ITS ---
WS: [email or web address] MRI HEAD WITHOUT CONTRAST TECHNIQUE: Sagittal T1, T2 axial, T2 axial FLAIR, axial and coronal T1 images, axial susceptibility w eighted imaging, axial diffusion weighted images, and coronal T2 images were obtained. CLINICAL INFORMATION: R42 - Dizziness and giddiness COMPARISON: CT 06/16/2022 FINDINGS: No evidence restricted diffusion to suggest acute ischemia. Ventricular system and basilar cisterns a re patent. Normal posterior fossa. Normal vascular flow voids at the skull base. No extra-axial fluid collections. No evidence of mass or mass effect. Paranasal sinuses and mastoid air cells are well ae rated. Minimal small vessel change. No significant parenchymal volume loss. Small focus of T2 hyperin tensity in the LEFT subinsular cortex likely due to prior infectious, inflammatory or ischemic etiolo gies. Tiny amount of increased T1 and FLAIR signal overlying the RIGHT hemisphere is nonspecific. This may be due to artifact or dural thickening. This can followed up with gadolinium if concern for meningiti s or encephalitis. This measures only 1.3 mm in maximum short axis dimension. No corresponding findin gs on the T2 or susceptibility weighted imaging. No hemosiderin on the susceptibly weighted images. Normal optic chiasm and pituitary infundibulum. Te mporal lobes and hippocampal formations are normal in appearance. Normal optic chiasm and pituitary i nfundibulum. IMPRESSION: 1. No evidence of restricted diffusion to suggest acute ischemia. 2. Tiny amount of T2 signal normality in the LEFT subinsular cortex likely due to prior infectious, inflammatory, or ischemic etiologies. 3. Minimal small vessel changes. No significant parenchymal volume loss. 4. Tiny amount of increased T1 and FLAIR signal overlying the RIGHT hemisphere may be due to dural t hickening or artifact. This can be followed up with gadolinium if clinical concern for encephalitis o r meningitis. 5. No hemosiderin on the susceptibly weighted images. 6. Temporal lobes significant both formations are normal in appearance.
== END 2023-05-30 10:51 | disposition home or self-care (01) ==
PROVIDERS: PCP Nurse Practitioner Family; Visit Provider Psychiatry & Neurology Neurology
DX: R42 Dizziness and giddiness (principal); R55 Syncope and collapse
CPT/HCPCS: 70551

== ENCOUNTER → 2023-08-15 13:37 | Outpatient (BNVA) | payer MEDICAID, SELFPAY | PROVIDERS: PCP Nurse Practitioner Family; Visit Provider Nurse Practitioner Family | DX: E11.9 Type 2 diabetes mellitus without complications (principal); R53.83 Other fatigue; M06.9 Rheumatoid arthritis, unspecified; E55.9 Vitamin D deficiency, unspecified | CPT/HCPCS: 80053; 83036; 85025 ==

== ENCOUNTER → 2023-11-02 10:20 | Outpatient (BNVA) | payer MEDICAID, SELFPAY | PROVIDERS: PCP Nurse Practitioner Family; Visit Provider Nurse Practitioner Family | DX: E03.9 Hypothyroidism, unspecified (principal); E78.5 Hyperlipidemia, unspecified; R73.9 Hyperglycemia, unspecified; M06.9 Rheumatoid arthritis, unspecified; E55.9 Vitamin D deficiency, unspecified | CPT/HCPCS: 80053; 80061; 82306; 83036; 84443; 85025; 85651; 86140 ==

== ENCOUNTER 2024-01-14 11:00 | Outpatient (CLI) | payer MEDICAID, SELFPAY | END 2024-01-14 11:01 | disposition home or self-care (01) | LOC: SLEEP 01-15 11:36 | PROVIDERS: PCP Nurse Practitioner Family; Visit Provider Nurse Practitioner Family | DX: G47.10 Hypersomnia, unspecified (principal); G47.33 Obstructive sleep apnea (adult) (pediatric) | CPT/HCPCS: G0399 ==

== ENCOUNTER → 2024-02-12 10:34 | Outpatient (BNVA) | payer MEDICAID, SELFPAY | PROVIDERS: PCP Nurse Practitioner Family; Visit Provider Nurse Practitioner Family | DX: R50.9 Fever, unspecified (principal) | CPT/HCPCS: 87400 ==

== ENCOUNTER → 2024-04-03 11:53 | Outpatient (BNVA) | payer MEDICAID, SELFPAY | PROVIDERS: PCP Nurse Practitioner Family; Visit Provider Nurse Practitioner Family | DX: E03.9 Hypothyroidism, unspecified (principal); E78.5 Hyperlipidemia, unspecified; E55.9 Vitamin D deficiency, unspecified | CPT/HCPCS: 80053; 80061; 82306; 83036; 83721; 84443; 85025 ==

== ENCOUNTER → 2024-04-28 11:50 | Outpatient (BNVA) | payer MEDICAID, SELFPAY | PROVIDERS: PCP Nurse Practitioner Family; Visit Provider Internal Medicine Rheumatology | DX: Z79.899 Other long term (current) drug therapy (principal) | CPT/HCPCS: 36415; 80076; 82565; 85025; 85651; 86140 ==

== ENCOUNTER → 2024-05-28 12:27 | Outpatient (BNVA) | payer MEDICAID, SELFPAY | PROVIDERS: PCP Nurse Practitioner Family; Visit Provider Internal Medicine | DX: I49.8 Other specified cardiac arrhythmias (principal); R07.9 Chest pain, unspecified | CPT/HCPCS: 93005 ==

== ENCOUNTER → 2024-06-05 10:47 | Outpatient (BNVA) | payer MEDICAID, SELFPAY | PROVIDERS: PCP Internal Medicine Rheumatology; Visit Provider Internal Medicine Rheumatology | DX: Z79.899 Other long term (current) drug therapy (principal) | CPT/HCPCS: 80076; 82565; 85025; 85651; 86140 ==

== ENCOUNTER → 2024-06-24 14:24 | Outpatient (BNVA) | payer MEDICAID, SELFPAY | PROVIDERS: PCP Internal Medicine Rheumatology; Visit Provider Student in an Organized Health Care Education/Training Program | DX: M79.641 Pain in right hand (principal) | CPT/HCPCS: 73130 ==

== ENCOUNTER 2024-06-26 08:09 | Outpatient (CLI) | payer MEDICAID, SELFPAY ==
--- NOTE | 2024-06-26 08:30 | USCV_ITS ---
Ryanne Harvey Age: 58 Gender: F : 1965 Exam Date: 06/26/2024 08:18 Ordering Phys: Collin Connor M.D ([email or web address]) Technologist: Exam Location: [facility] [place] Indication: murmur BP: 140 / 73 HR: 92 Rhythm: Sinus Technical Quality: Adequate MEASUREMENTS (Male / Female) Normal Values 2D ECHO LV Diastolic Diameter PLAX 3.4 cm 4.2 - 5.9 / 3.9 - 5.3 cm IVS Diastolic Thickness 0.9 cm 0.6 - 1.0 / 0.6 - 0.9 cm IVS Systolic Thickness 1.2 cm LVPW Diastolic Thickness 1.3 cm 0.6 - 1.0 / 0.6 - 0.9 cm LVPW Systolic Thickness 1.5 cm LVOT Diameter 2.0 cm LV Ejection Fraction 2D Teich 64.3 % LV Ejection Fraction MOD 4C 59.2 % LV Ejection Fraction MOD 2C 65.9 % LV Ejection Fraction 2C AL 68.2 % LA Diameter 3.3 cm RA Systolic Volume 4C AL 48.3 ml RA Systolic Volume 4C MOD 46.2 ml Aorta at Sinotubular Diameter 2.9 cm M-MODE LA Ao Ratio MM 1.4 AV Cusp Separation MM 2.3 cm DOPPLER AV Peak Velocity 112.0 cm/s LVOT Peak Velocity 76.0 cm/s AV Area Cont Eq vti 2.9 cm squared AV Area Cont Eq pk 2.2 cm squared MV Peak Velocity 101.0 cm/s MV Area PHT 2.7 cm squared Mitral E to A Ratio 1.1 TR Peak Velocity 283.0 cm/s TR Peak Gradient 32.0 mmHg TV Peak E Velocity 122.0 cm/s Right Atrial Pressure 3.0 mmHg Pulmonary Artery Systolic Pressu 35.0 mmHg FINDINGS Left Ventricle Normal left ventricular size, systolic function and wall thickness, with no regional wall motion abnormalities. Left ventricular ejection fraction is estimated at 60 %. Normal left ventricular cavity size. Right Ventricle The right ventricle is normal in size and function. Right Atrium The right atrium is normal in size. Left Atrium The left atrium is normal in size. Mitral Valve Structurally normal mitral valve without significant stenosis or prolapse. There is no mitral regurgitation. Aortic Valve Structurally normal aortic valve without significant sclerosis or stenosis. There is no aortic regurgitation. Tricuspid Valve Structurally normal tricuspid valve without significant stenosis or regurgitation. Pulmonary artery systolic pressure is normal. Pulmonic Valve Structurally normal pulmonic valve without significant stenosis. There is no pulmonic regurgitation. Pericardium Normal pericardium without effusion. Aorta Normal ascending aorta dimension. IVC The inferior vena cava appears normal. CONCLUSIONS Normal left ventricular size, systolic function and wall thickness, with no regional wall motion abnormalities. Left ventricular ejection fraction is estimated at 60 %. Normal left ventricular cavity size. There is no pericardial effusion. No significant valve abnormalities. Pulmonary artery systolic pressure is within normal limits. Right atrial pressure is around 5 mm of mercury. Marley Cordova MD (Electronically Signed) Final Date: 26 June 2024 11:12 S
== END 2024-06-26 08:10 | disposition home or self-care (01) ==
LOC: RAD 08:09
PROVIDERS: PCP Internal Medicine Rheumatology; Visit Provider Internal Medicine
DX: R07.9 Chest pain, unspecified (principal); R06.02 Shortness of breath
CPT/HCPCS: 93306

== ENCOUNTER 2024-08-15 14:05 | Outpatient (CLI) | payer MEDICAID, SELFPAY ==
--- NOTE | 2024-08-15 14:30 | XR_ITS ---
WS: [email or web address] DEXA (DUAL ENERGY X-RAY ABSORPTIOMETRY) Bone mineral density was performed using a Phonitive - Touchalize machine. HISTORY: Z78.0 - Asymptomatic menopausal state COMPARISON: 01/10/2022 Lumbar spine BMD (L1-L4): 0.970 g/cm2 T score: -1.8 Z score: -1.6 Total hip BMD: Left: 0.923 g/cm2. T score: -0.7 Z score: -0.5 Right: 0.879 g/cm2. T score: -1.0 Z score: -0.9 10 year probability of a major osteoporotic fracture is 12.6%. Compared to the prior study from 01/10/2022. Lumbar spine bone mineral density has increased by 4.3%. Bilateral hips bone mineral density has increased by 15.1%. XR/XR DEXA axial skeleton* [id number] IMPRESSION: OSTEOPENIA based upon the WHO classification for females. Significant increase in bone mineral density within both the lumbar spine and h ips since the prior study.
== END 2024-08-15 14:06 | disposition home or self-care (01) ==
LOC: RAD 14:06
PROVIDERS: PCP Nurse Practitioner Family; Visit Provider Nurse Practitioner Family
DX: Z13.820 Encounter for screening for osteoporosis (principal); Z78.0 Asymptomatic menopausal state; M85.80 Other specified disorders of bone density and structure, unspecified site
CPT/HCPCS: 77080

== ENCOUNTER 2024-08-25 11:03 | Outpatient (CLI) | payer MEDICAID, SELFPAY | END 2024-08-25 11:04 | disposition home or self-care (01) | LOC: RAD 11:04 | PROVIDERS: PCP Nurse Practitioner Family; Visit Provider Nurse Practitioner Family | DX: M51.360 Other intervertebral disc degeneration, lumbar region with discogenic back pain only (principal); M41.86 Other forms of scoliosis, lumbar region; M51.370 Other intervertebral disc degeneration, lumbosacral region with discogenic back pain only | CPT/HCPCS: 72100 ==

== ENCOUNTER → 2024-09-25 11:09 | Outpatient (BNVA) | payer MEDICAID, SELFPAY | PROVIDERS: PCP Nurse Practitioner Family; Visit Provider Nurse Practitioner Family | DX: E78.5 Hyperlipidemia, unspecified (principal); M06.041 Rheumatoid arthritis without rheumatoid factor, right hand; M06.042 Rheumatoid arthritis without rheumatoid factor, left hand; Z79.899 Other long term (current) drug therapy | CPT/HCPCS: 80053; 80076; 82565; 84443; 85025; 85651; 86140 ==

== ENCOUNTER 2024-09-30 09:41 | Outpatient (CLI) | payer MEDICAID, SELFPAY ==
--- NOTE | 2024-09-30 11:00 | MR_ITS ---
WS: [email or web address] MRI LUMBAR SPINE NONCONTRAST HISTORY: M54.50 - Low back pain, unspecified COMPARISON: 01/02/2022 TECHNIQUE: Sagittal and axial multisequence imaging is submitted. Mild increase in thoracic kyphosis. Normal lumbar alignment with no compression fractures or marrow edema. Mild disc space narrowing and desiccation. Conus terminates normally at L1-2 disc level. L1-L2: Shallow LEFT foraminal disc protrusion is reidentified and decreased in size. Mild LEFT herminio inal stenosis. L2-L3: Mild annular disc bulging. Minimal disc encroachment into the LEFT foramen. Continued mild imp rovement with no stenosis. L3-L4: Mild annular disc bulging with a RIGHT foraminal disc protrusion. Osteophytic ridging. Disc co ntacts the ventral thecal sac in the RIGHT traversing L4 nerve root. Mild RIGHT subarticular recess a nd RIGHT foraminal stenosis. L4-L5: Diffuse annular disc bulging and osteophytic ridging. Progression of a central and bilateral s ubarticular recess stenosis. Minimal foraminal narrowing. Disc contacts the traversing L5 nerve roots . L5-S1: Small central disc protrusion with mild contact on the S1 nerve roots. Shallow LEFT foraminal disc protrusion. Disc osteophyte does contact the exiting LEFT L5 nerve root. Minimal bilateral herminio inal stenosis. Paravertebral soft tissues are negative. MR/MR lumbar spine wo con* [id number] IMPRESSION: 1. Multilevel degenerative facet disease and disc disease. 2. L1-2: Shallow LEFT foraminal disc protrusion has decreased in size with onl y mild LEFT foraminal stenosis. 3. L3-4: RIGHT foraminal disc protrusion. There is disc contact on the ryanne ing RIGHT L4 nerve root. Mild RIGHT subarticular recess and foraminal stenosis. 4. L4-5: Progression of central and subarticular recess encroachment by disc a nd osteophyte disease. There is disc contacting the traversing L5 nerve roots. Mild central, subarticular recess and foraminal stenosis. 5. L5-S1: Small central disc protrusion contacts the S1 nerve roots. Mild disc osteophyte contact on the LEFT L5 exiting nerve root also. No change.
== END 2024-09-30 09:42 | disposition home or self-care (01) ==
LOC: RAD 09:42
PROVIDERS: PCP Nurse Practitioner Family; Visit Provider Nurse Practitioner Family
DX: M48.061 Spinal stenosis, lumbar region without neurogenic claudication (principal); G89.29 Other chronic pain; M51.369 Other intervertebral disc degeneration, lumbar region without mention of lumbar back pain or lower extremity pain; M47.816 Spondylosis without myelopathy or radiculopathy, lumbar region; M51.26 Other intervertebral disc displacement, lumbar region; M25.78 Osteophyte, vertebrae; M51.27 Other intervertebral disc displacement, lumbosacral region; M40.294 Other kyphosis, thoracic region
CPT/HCPCS: 72148

== ENCOUNTER 2024-10-16 08:57 | Outpatient (CLI) | payer MEDICAID, SELFPAY ==
--- NOTE | 2024-10-16 08:45 | US_ITS ---
WS: [email or web address] RIGHT UPPER QUADRANT ULTRASOUND HISTORY: R79.89 - Other specified abnormal findings of blood chemi... COMPARISON: 09/15/2022 Liver: 21.4 cm in length. Markedly enlarged liver as noted on the prior exam. Coarse echotexture thro ughout the liver. The entire liver is not imaged due to attenuation. Mild nodularity along the surfac e of the liver. Portal Vein: Normal hepatopetal flow with monophasic waveform. Gallbladder: Normally distended gallbladder with no stones or wall thickening. CBD: 0.7 cm Pancreas: Not visualized. Right kidney: 10.9 cm in length. Normal size and echogenicity. No hydronephrosis or mass. Aorta and IVC: Unremarkable abdominal aorta and IVC. No ascites. US/US liver [id number] IMPRESSION: 1. Technically difficult and limited RIGHT upper quadrant evaluation. 2. Normal gallbladder. 3. Marked hepatic steatosis and hepatomegaly. Similar to the prior study. The entire liver could not be imaged due to attenuation.
== END 2024-10-16 08:58 | disposition home or self-care (01) ==
PROVIDERS: PCP Nurse Practitioner Family; Visit Provider Nurse Practitioner Family
DX: R79.89 Other specified abnormal findings of blood chemistry (principal); K76.0 Fatty (change of) liver, not elsewhere classified; R16.0 Hepatomegaly, not elsewhere classified; R93.2 Abnormal findings on diagnostic imaging of liver and biliary tract
CPT/HCPCS: 76705

== ENCOUNTER 2024-10-20 10:29 | Day surgery (SDC) | payer MEDICAID, SELFPAY ==
[2024-10-20] VITALS (16 sets, daily range): BP systolic 91–148; BP diastolic 60–104; PULSE 67–88; RESP 16–20; TEMP 36.1–36.2; O2SAT 91–98; BMI 40.8
[2024-10-20] MEDS: scopolamine 1 mg PATCH 1 PATCH TRANSDERMA (11:26)
[2024-10-20] MEDS: sodium chloride 0.9% 1,000 ML 30 ML IV (11:42)
--- NOTE | 2024-10-20 11:43 | PC.NURSE ---
iv started with ultrasound per andrew jordan rn
[2024-10-20] MEDS: acetaminophen 1,000 MG/100 ML PIGGYBACK 400 MG IV (11:44)
--- NOTE | 2024-10-20 11:52 | P.HP_ITS ---
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, right carpal tunnel PREOP DIAGNOSIS: Right trigger thumb, right Guyon's canal entrapment right cubital tunnel sy PLANNED PROCEDURE: Operation Date: 10/20/24 12:10 Proposed Procedures p Trigger Finger Release(Right) - Sanjeev Fayette, DO s Carpal Tunnel Release(Right) - Sanjeev Fayette, DO s Guyon Canal Release(Right) - Sanjeev Remberto, DO s Cubital Tunnel Release(Right) - Sanjeev Remberto, DO s Possible Ulnar Nerve Transposition(Right) - Sanjeev Fayette, DO Medications/Allergies* Home Medications Medication Instructions Recorded Confirmed Type lidocaine 5 % topical patch 1 patch topical DAILY PRN Pain 07/18/22 10/17/24 History (Lidoderm) apixaban 5 mg tablet (Eliquis) 5 mg PO BID 10/17/24 10/17/24 History atorvastatin 80 mg tablet 80 mg PO DAILY 10/17/24 10/17/24 History duloxetine 30 mg capsule,delayed 30 mg PO DAILY 10/17/24 10/17/24 History release levothyroxine 88 mcg tablet 88 mcg PO DAILY 10/17/24 10/17/24 History meclizine 25 mg tablet 12.5 - 25 mg PO TID 10/17/24 10/17/24 History pantoprazole 40 mg tablet,delayed 40 mg PO DAILY 10/17/24 10/17/24 History release prednisone 20 mg tablet 20 mg PO PRN PRN joint pain flare 10/17/24 10/20/24 History Allergies/Adverse Reactions Allergy/AdvReac Type Severity Reaction Status Date / Time iodine Allergy Severe ALGY-Anaphy Verified 09/30/24 09:17 laxis acetaminophen [From Percocet] Allergy itching Verified 09/30/24 09:17 all over bad aspirin Allergy ALGY-Hives Verified 09/30/24 09:17 gabapentin Allergy ADR-Migrain Verified 09/30/24 09:17 e hydrocodone [From Vicodin] Allergy Unknown Verified 09/30/24 09:17 NSAIDS (Non-Steroidal Allergy ADR-Nausea Verified 09/30/24 09:17 Anti-Inflamma oxycodone [From Percocet] Allergy ALGY-Hives Verified 09/30/24 09:17 Penicillins Allergy ALGY-Rash Verified 09/30/24 09:17 Current Medications: Generic Name Dose Route Start Last Admin Trade Name Freq PRN Reason Stop Dose Admin Sodium Chloride 1,000 mls @ 30 mls/hr 10/20/24 10:45 10/20/24 11:42 Sodium Chloride 0.9% IV 10/21/24 10:44 30 mls/hr .Q24H LUKAS Administration Pertinent History/Comorbid Conditions* Medical History (Updated 09/21/24 @ 21:36 by Sanjeev Sr DO) Immunization counseling High risk medication use Seronegative rheumatoid arthritis of both hands TAMMY (obstructive sleep apnea) Vitamin D deficiency Pulmonary embolism History of nephrolithiasis CVA (cerebral vascular accident) DJD (degenerative joint disease) Rheumatoid arthritis Obesity Hypothyroidism Chronic back pain Cervicalgia Hyperlipemia Surgical History (Updated 07/18/22 @ 19:23 by Teodoro Chamberlain MD) Hx of colonoscopy with polypectomy (01/27/22) History of rotator cuff surgery (06/13/22) Hx of appendectomy Hx of tubal ligation Family History (Updated 11/22/21 @ 13:24 by Linda Rodgers LPN) Father, age 33 Rheumatoid arthritis Diabetes CAD (coronary artery disease) Cancer Father Hypertension Stroke Denies family history of Lupus Hyperlipidemia Chronic kidney disease (CKD) Social History Smoking and tobacco/nicotine status: never used tobacco/nicotine Second hand smoke exposure: Yes Alcohol intake: never Substance/Drug Use: never Lives independently: Yes Household members: spouse Housing: House Marital status: Current occupational status: unemployed Current occupational exposures/hazards: No Current gender identity: Female Pertinent Exam Findings alert, oriented x 3, operative site marked and procedure specific exam findings Please refer to detailed orthopedic examination on 09/04/2024 listed below: Right hand Clasped thumb noted to the right hand. tenderness to palpation of the A1 kenny no active triggering. Thumb does appear to be supple and correctable with passive range of motion but a resting position continues to remain clasped. spastic thumb on exam.On examination patient does have appreciable spasticity to the right hand and all the flexor tendons as these tend to want to be continually leandra and flexing down, patient has mildly positive Tinel's and median nerve compression test over the carpal tunnel as well.Positive Tinel's over Guyon's canal positive Tinel's over the cubital tunnel with positive elbow flexion test. Recommendations Surgery/Procedure today Other Plans: Plan to proceed to the OR today for right trigger thumb release, right carpal tunnel release, right Guyon's canal release, right cubital tunnel release with possible nerve transposition. Patient understands the ins and outs procedure the risk benefits complication alternatives surgery she does have realistic expectation this may not completely help her symptoms I do feel as though this should help with some of the triggering and locking down to the thumb hopefully this improves with some of her spasticity but is treating some of her nerve entrapments as well. Understanding this she elects to proceed with surgical intervention. All questions have been answered at this time we will proceed to the OR today. Coding Level of Care Code Acute Code for Edgar Abdi
[2024-10-20] MEDS: clindamycin 900 MG/50 ML PREMIX 100 MG IV (11:58)
[2024-10-20] MEDS: ROPivacaine 0.5% SDV 30 mL 25 MG INJECTION (13:10)
[2024-10-20] MEDS: lidocaine 1% 10 ML INJ 5 ML SUBCUT (13:10)
--- NOTE | 2024-10-20 13:16 | W.PM.BPON ---
Date of Procedure: 10/20/2024 Surgeon: Sanjeev Sr DO Supervisor Beeh[place] Kiln(s): None Procedure(s) performed: Right trigger thumb release Right carpal tunnel release Right Guyon's canal release (ulnar nerve release at the wrist) Right cubital tunnel release (ulnar nerve decompression at the elbow) Findings of the procedure(s): Patient was found to have right trigger thumb right carpal tunnel syndrome right Guyon's canal entrapment right cubital tunnel syndrome underwent procedure as planned without issues or complications no subluxation of the ulnar nerve is appreciated as a result today ulnar nerve cubital tunnel release in situ at the elbow. Patient will be placed in a volar splint until follow-up. Patient family understand agree with current plan. Questions answered Estimated blood loss: 15 mL Specimen(s) removed: None Post-operative diagnosis: Right trigger thumb, right carpal tunnel syndrome right Guyon's canal entrapment right cubital tunnel syndrome
--- NOTE | 2024-10-20 13:18 | PM.OP ---
Operative Report Date of procedure: October 20, 2024 Surgeon: Sanjeev Sr DO Procedure: Preoperative diagnosis? Right Thumb Trigger Right? 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 39 minutes IV fluids: 800mL Complications: None Findings: See operative report narrative Condition: stable Disposition: same day Brief History: Patient's been seen and worked up in the outpatient setting and findings consistent with preoperative diagnosis.? Patient has?right thumb trigger, Right Carpal Tunnel Syndrome,Right ulnar entrapment at?guyons?canal, Right?cubital tunnel syndrome? which has been worked up in the outpatient setting has physical exam findings consistent with this.? Patient's nerve study consistent with cubital syndrome.? Exam findings consistent with preoperative diagnosis.? Patient's failed conservative treatment.? As result through shared decision making agreed to proceed with right thumb trigger release, Right carpal tunnel release , Right ulnar nerve release at the wrist (guyons canal) and Right?cubital tunnel release. We talked about tx options as nonoperative and operative intervention.? Understands risk benefits complication alternatives surgical nonsurgical treatment options.? Understanding? risks pt agrees to proceed with surgical intervention. Understanding these risks pt agrees to proceed with surgery.? Consent obtained in preop. Procedure: Patient seen evaluate in the preoperative holding area.? Consent was reviewed and signed with patient.? Correct extremity marked.? Patient seen evaluated by anesthesia department once cleared for surgery was then taken back to the operative suite placed in supine position all bony prominences well-padded patient properly secured to bed.? Right upper extremity placed onto armboard.? Nonsterile tourniquet applied Right upper arm.? Patient then underwent anesthesia per the anesthesia department.? Patient's Right upper extremity was then prepped and draped in standard orthopedic fashion.? Final timeout performed.? Patient received appropriate preoperative antibiotics. Esmarch was used exsanguinate the Right upper extremity.? Tourniquet was insufflated to 250 mmHg. I started with Right Thumb trigger. I identified patient's MP flexion crease marked appropriate incision transversely across the flexion crease within Wilfrido's lines sharp scalpel incision was made only through skin.? Once this was done I switched to Littler dissection scissors this I then subsequently spread longitudinally in the planes of the digital nerves.? Once these were identified these were protected by my expanded function dental assistant with Kasdan retractors.? Next I identified directly over the A1 kenny of the right?thumb.? This was significantly thickened and identified to be the area of patient's?thumb?triggering.? I used sharp scalpel to incise the A1 kenny and then utilized my expanded function dental assistant to retract the ability and under loupe magnification released the entirety of the A1 kenny both proximally and distally up to the oblique kenny.? This point time the tendon was then inspected and found to be healthy there was some inflammation around the tendon itself but no evidence of tearing and no need for any debridement.? The Ragnell was used to pull the tendon out of the incision and there was no mechanical?triggering I then took the patient's?thumb?through range of motion no recurrent?triggering was noted.Wound was then thoroughly irrigated and wet Ray-Estrellita was placed to proceed with further surgeries.? ? I started with my release of the ulnar nerve at the wrist.? An extensive laterally based palmar incision that extended proximal past the wrist crease with a Nelsy incision was made directly over?Guyon's canal.? At this point in time incision was made between the Pisa form and hamate to follow neurovascular bundle of?Guyon's canal.? sharp scalpel incision was subsequently made through skin and then I switched to Littler dissection scissors.? At this point in time I dissected down over top?guyons?canal release the brevis muscle belly along the hypothenar region to obtain access into?Guyon's canal.? Thick band of fascia was noted proximally just proximal to the wrist crease this was released and made sure there was complete decompression of the ulnar nerve proximally just prior to?Guyon's canal subsequently released?guyon canal and direct visualization with sharp scalpel excision as well as Littler dissection scissors with care utilizing my expanded function dental assistant to protect the neurovascular bundle.? At this point in time I continued to perform release of the fascia/the roof of?Guyon's canal all the way to its most distal extent and the nerve was found to be completely free and untethered.? I then in order to perform release of the deep motor branch I then mobilized my dissection around the ulnar nerve and identified the deep motor branch as it courses towards the underneath fascia connected with the hamate.? I then utilized dissection scissors and under direct visualization completed my release carefully of the fascial bands tethering over top of the deep motor branch.? At this point in time the ulnar nerve was completely decompressed through?Guyon's canal and? ulnar nerve had complete laxity with no areas of entrapment or tethering. No masses were noted within the contents of the?guyons?canal.? This completed the ulnar nerve release at the wrist. Next I then subsequently visualized from the ulnar aspect of the carpal tunnel.? Identified the distal extent as well as proximal extent into the antebrachial fascia.? As result approaching the carpal tunnel from the ulnar position just above the hook of the hamate made an incision through thickened Transverse carpal ligament.? It was noted there was significant entrapment of the median nerve.? I then switched to Littler dissection scissors to complete my dissection and release distally with care to protect neurovascular structures distally.? The tendons were healthy within the carpal tunnel.? No masses were noted.? I then carried my dissection proximally utilizing retraction by my expanded function dental assistant as well as direct visualization with loupe magnification identify the proximal extent of the carpal tunnel and release this to its entirety as well as identified the median nerve and released the tethering of the antebrachial fascia proximally past the wrist crease into the distal aspect of the forearm with no further evidence of median nerve entrapment.? The median nerve overall showed signs of compression and inflammation irritation but overall appeared healthy.?? Next marked out the landmarks of the Right elbow of the medial epicondyle and olecranon and made a curvilinear incision following the course of the ulnar nerve at the medial aspect of the elbow.? Sharp scalpel incision was made through skin and subcutaneous tissue.? Next I switched to Littler dissection scissors and spread in plane of the medial antebrachial cutaneous nerve branching which was protected throughout this part of the dissection.? Then I directly came down over the fascia and identified the 2 heads of the FCU fascia and split this Right in the middle and subsequently identified my ulnar nerve distally.? This was then completely released distally under direct visualization and loupe magnification.? Once the nerve was then identified I then subsequently tracked this proximally and released this through Goodson's ligament as well as complete decompression of the nerve proximally all the way past the intermuscular septum.? The nerve was completely released and decompressed both proximally and distally.? Ulnar nerve neurolysis performed and completed both proximally and distally with dissection scissors.? I then took the elbow through range of motion and there was no instability or subluxating of the ulnar nerve.? This completed?cubital?tunnel release.? ?Next the wound bed was thoroughly irrigated.? Tourniquet was deflated.? Hemostasis was satisfactory.? ?The incision was then closed in standard interrupted mattress fashion.? Dressing was Xeroform 4 x 4's ABD Curlex soft roll and an Jean Carlos wrap has a bulky soft dressing and volar splint.? Patient was then awakened from anesthesia and taken to PACU in stable condition. Disposition: Patient taken to PACU in stable condition recovering well.? Patient will receive appropriate discharge instructions as well as pain medication postoperatively.? We will follow-up with me in the office in 2 weeks.? Patient understands agrees with current plan.? All questions answered.? pt understands if any questions or concerns and contact the office for follow-up appointment.
[2024-10-20] MEDS: fentaNYL 50 mcg/mL INJ 2mL IVP (14:13)
[2024-10-20] MEDS: TRAMadol 50 mg Tablet 100 MG PO (14:47)
--- NOTE | 2024-10-20 15:40 | ANE.PACU2 ---
Inpatient post-anesthesia follow up: Airway intact: Yes Vital signs: Temperature 97 F Pulse Rate 69 Respiratory Rate 18 Blood Pressure 119/82 Pulse Oximetry 96 Oxygen Delivery Me thod Room Air Oxygen Flow Rate 2 Fraction of Inspir ed Oxygen Hydration adequate: Yes Nausea and vomiting: No Pain level: 1 Mental status: Baseline
--- NOTE | 2024-10-20 15:51 | ANES.PROC ---
Anesthesia Procedures Procedure/Date: 10/20/24 Nerve Block ^: Nerve Block 1: Main Anesthesia: general anesthesia Time Out Performed: Yes Consent: requested by attending/covering physician, from patient, from other, risks and benefits reviewed and patient agrees to proceed Nerve block location: supraclavicular (R) Anesthesia monitors applied: pulse oximetry, EKG, BP cuff and oxygen Nerve block position: semi sitting Anesthetic Used: ropivicaine 0.5% (10 ml) and with decadron (4 mg) Ultrasound used to: recognize landmarks, visualize and ID brachial plexus and in supraclavicular region Nerve Stimulator Used?: No Interscalene/Femoral BLK: 4 stimuplex 21 g needle used for position and inplane approach, visualize local anesthetic spread and no vascular puncture identified Injection: neg aspiration of heme Patient Tolerated Procedure: well Complications: none
== END 2024-10-20 15:42 | disposition home or self-care (01) ==
PROVIDERS: PCP Nurse Practitioner Family; Visit Provider Student in an Organized Health Care Education/Training Program
PROC: (CPT 26055; principal; 2024-10-20 12:10)
PROC: (CPT 64721; 2024-10-20 12:10)
PROC: (CPT 64719; 2024-10-20 12:10)
PROC: (CPT 64718; 2024-10-20 12:10)
DX: M65.311 Trigger thumb, right thumb (principal); G56.01 Carpal tunnel syndrome, right upper limb; G56.21 Lesion of ulnar nerve, right upper limb; Z79.899 Other long term (current) drug therapy; Z79.01 Long term (current) use of anticoagulants; Z88.8 Allergy status to other drugs, medicaments and biological substances; Z88.5 Allergy status to narcotic agent; Z88.0 Allergy status to penicillin; E03.9 Hypothyroidism, unspecified; E78.5 Hyperlipidemia, unspecified
CPT/HCPCS: 64719; 64718; 64721; 26055; J0131; J1100; J2250; J2405; J2704; J2795; J3010; J3490; J7030

== ENCOUNTER → 2024-10-27 12:24 | Outpatient (BNVA) | payer MEDICAID, SELFPAY | PROVIDERS: PCP Nurse Practitioner Family; Visit Provider Nurse Practitioner Family | DX: R74.8 Abnormal levels of other serum enzymes (principal) | CPT/HCPCS: 80076 ==

== ENCOUNTER 2024-11-15 06:00 | Outpatient (RCR) | payer MEDICAID, SELFPAY | END 2024-12-15 23:59 | disposition home or self-care (01) | LOC: SOT 06:00 | PROVIDERS: PCP Nurse Practitioner Family; Visit Provider Physician Assistant | DX: G56.21 Lesion of ulnar nerve, right upper limb (principal); G56.01 Carpal tunnel syndrome, right upper limb | CPT/HCPCS: 97110; 97140 ==

== ENCOUNTER → 2024-11-21 14:01 | Outpatient (BNVA) | payer MEDICAID, SELFPAY | PROVIDERS: PCP Nurse Practitioner Family; Visit Provider Nurse Practitioner Family | DX: Z04.3 Encounter for examination and observation following other accident (principal); W19.XXXA Unspecified fall, initial encounter; Z98.890 Other specified postprocedural states | CPT/HCPCS: 73080; 73110 ==

== ENCOUNTER → 2024-11-24 14:45 | Outpatient (BNVA) | payer MEDICAID, SELFPAY | PROVIDERS: PCP Nurse Practitioner Family; Visit Provider Emergency Medicine | DX: M77.31 Calcaneal spur, right foot (principal); R79.89 Other specified abnormal findings of blood chemistry | CPT/HCPCS: 73610; 80076 ==

== ENCOUNTER → 2024-11-28 08:22 | Outpatient (BNVA) | payer MEDICAID, SELFPAY | PROVIDERS: PCP Nurse Practitioner Family; Visit Provider Nurse Practitioner Family | DX: M25.521 Pain in right elbow (principal) | CPT/HCPCS: 73080 ==

== ENCOUNTER → 2024-12-10 10:57 | Outpatient (BNVA) | payer MEDICAID, SELFPAY | PROVIDERS: PCP Nurse Practitioner Family; Visit Provider Nurse Practitioner Family | DX: R79.89 Other specified abnormal findings of blood chemistry (principal); M25.571 Pain in right ankle and joints of right foot | CPT/HCPCS: 73610; 80076 ==

== ENCOUNTER → 2024-12-15 11:51 | Outpatient (BNVA) | payer MEDICAID, SELFPAY | PROVIDERS: PCP Nurse Practitioner Family; Visit Provider Internal Medicine Rheumatology | DX: Z79.899 Other long term (current) drug therapy (principal); E78.5 Hyperlipidemia, unspecified; E55.9 Vitamin D deficiency, unspecified; E66.9 Obesity, unspecified | CPT/HCPCS: 36415; 80053; 80061; 82248; 82306; 84443; 85025; 85651; 86140 ==

== ENCOUNTER 2024-12-16 06:00 | Outpatient (RCR) | payer MEDICAID, SELFPAY | END 2025-01-14 23:59 | disposition home or self-care (01) | LOC: SOT 06:00 | PROVIDERS: PCP Nurse Practitioner Family; Visit Provider Physician Assistant | DX: G56.21 Lesion of ulnar nerve, right upper limb (principal); G56.01 Carpal tunnel syndrome, right upper limb | CPT/HCPCS: 97022; 97110 ==

== ENCOUNTER → 2024-12-29 12:22 | Outpatient (BNVA) | payer MEDICAID, SELFPAY | PROVIDERS: PCP Nurse Practitioner Family; Visit Provider Nurse Practitioner Family | DX: Z79.899 Other long term (current) drug therapy (principal) | CPT/HCPCS: 80076; 82565 ==

== ENCOUNTER 2025-01-28 08:11 | Day surgery (SDC) | payer MEDICAID, SELFPAY ==
--- NOTE | 2025-01-28 08:26 | P.ANESASSM_ITS ---
Pre-Anesthetic Assessment Height/Weight: Height 1.55 m Preop Diagnosis: GERD, N/V, Abd. Pain Operation Date: 01/28/25 09:55 Proposed Procedures p EGD 55989, K21.9(Not Applicable) - Kevin Ontiveros MD Familial anesthetic complications: None Was Beta Aly taken within 24 hours: N/A Was Clonidine taken within 24 hours: N/A Social No alcohol and No tobacco Exam alert, oriented x 3, clear to auscultation bilaterally and regular rate & rhythm Airway Cervical ROM: Other (limited) Mallampati: Class III Pulmonary Asthma and Sleep Apnea P.E Post shoulder surgery. 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 No deficits) and Neuropathy Anesthetic Plan ASA status: 3 Anesthesia: MAC Risk of > 500 ml blood loss (7ml/kg in children): No Medications/Allergies Home Medications ?Medication ?Instructions ?Recorded ?Confirmed ?Last Taken ?Type lidocaine 5 % topical patch 1 patch topical DAILY PRN Pain 07/18/22 01/21/25 01/19/25 History (Lidoderm) levalbuterol tartrate 45 2 inh inhalation Q6H PRN katia rtness 02/12/24 01/21/25 01/27/25 18:30 Rx mcg/actuation aerosol inhaler of breath or wheezing #1 5 grams (Xopenex HFA) pregabalin 25 mg capsule 25 mg PO BID #30 caps 01/21/25 01/27/25 18:30 Rx apixaban 5 mg tablet (Eliquis) 5 mg PO BID 10/17/2401/25/25 07:00 History atorvastatin 80 mg tablet 80 mg PO DAILY 10/17/24 05/04/1001/27/25 18:30 History duloxetine 30 mg capsule,delayed 30 mg PO DAILY 01/21/25 01/27/25 18:30 History release meclizine 25 mg tablet 12.5 - 25 mg PO TID 10/17/24 01/21/25 01/27/25 18:30 History prednisone 20 mg tablet 20 mg PO PRN PRN joint pain flare 10/17/24 01/21/25 01/27/25 18:30 History pantoprazole 40 mg tablet,delayed 40 mg PO BID #60 tab s 11/21/24 01/21/25 01/27/25 18:30 Rx release adalimumab 40 mg/0.8 mL 40 mg (0.8 mL) SUBCUT Q14D # 2 ea 12/15/24 01/21/25 01/27/25 18:30 Rx subcutaneous pen kit (Humira Pen) prednisone 5 mg tablet 5 mg PO DAILY joint pain #90 tabs 12/15/24 01/21/25 01/27/25 18:30 Rx levothyroxine 100 mcg tablet 100 mcg PO DAILY #90 tabs 12/21/24 01/21/25 01/27/25 18:30 Rx tizanidine 4 mg tablet 4 mg PO BID PRN muscle spast icity 01/09/25 01/21/25 01/27/25 18:30 Rx #60 tabs ropinirole 1 mg tablet 1 mg PO BEDTIME 01/21/2504/1001/27/25 18:30 History epinephrine 0.3 mg/0.3 mL 0.3 mg (0.3 mL) IM ONCE PRN 01/27/25 Unknown Rx injection, auto-injector (EpiPen anaphylaxis #2 ea 2-Jad) Allergies Allergy/AdvReac Type Severity Reaction Status Date / Time iodine Allergy Severe ALGY-Anaphy Verified 01/28/25 08:29 laxis acetaminophen (From Percocet) Allergy itching Verified 01/28/25 08:29 all over bad aspirin Allergy ALGY-Hives Verified 01/28/25 08:29 gabapentin Allergy ADR-Migrain Verified 01/28/25 08:29 e hydrocodone (From Vicodin) Allergy Unknown Verified 01/28/25 08:29 NSAIDS (Non-Steroidal Allergy ADR-Nausea Verified 01/28/25 08:29 Anti-Inflamma oxycodone (From Percocet) Allergy ALGY-Hives Verified 01/28/25 08:29 Penicillins Allergy ALGY-Rash Verified 01/28/25 08:29 [facility] Anesthesia Medical History Immunization counseling High risk medication use Seronegative rheumatoid arthritis of both hands TAMMY (obstructive sleep apnea) Vitamin D deficiency Pulmonary embolism History of nephrolithiasis CVA (cerebral vascular accident) DJD (degenerative joint disease) Rheumatoid arthritis Obesity Hypothyroidism Chronic back pain Cervicalgia Hyperlipemia Surgical History Hx of colonoscopy with polypectomy (01/27/22) History of rotator cuff surgery (06/13/22) Hx of appendectomy Hx of tubal ligation Family History Father , age 33 Cancer Other CAD (coronary artery disease) Diabetes Hypertension Rheumatoid arthritis Stroke Denies family history of Lupus Hyperlipidemia Chronic kidney disease (CKD) Social History Smoking and tobacco/nicotine status: never used tobacco/nicotine Second hand smoke exposure: Yes Alcohol intake: never Substance/Drug Use: never Lives independently: Yes Household members: spouse Housing: House Marital status: Current occupational status: unemployed Current occupational exposures/hazards: No Current gender identity: Female Data Anesthesia Cardiac Studies: Echocardiogram 06/26/24 Cardiac Event Monitor 05/28/24
[2025-01-28 08:33] VITALS: BP 153/99; PULSE 93; RESP 18; TEMP 36.1; O2SAT 97; BMI 41.5
[2025-01-28] MEDS: sodium chloride 0.9% 500 ML 30 ML IV (08:37)
--- NOTE | 2025-01-28 08:39 | W.PM.OPSUD ---
Surgery/Procedure H&P Update DATE OF PROCEDURE: January 28, 2025 DATE H&P PERFORMED: 01/14/25 H&P UPDATE INFORMATION: I have reviewed H&P completed within last 30 days, I have examined patient prior to procedure, No changes to prior documentation, Changes to prior documentation as noted here and Risks and benefits of the procedure reviewed PREOP DIAGNOSIS: GERD PLANNED PROCEDURE: Operation Date: 01/28/25 09:55 Proposed Procedures p EGD 13100, K21.9(Not Applicable) - Kevin Ontiveros MD
[2025-01-28 09:57] VITALS: BP 86/67; PULSE 84; RESP 18; TEMP 36.3; O2SAT 94
[2025-01-28 10:07] VITALS: BP 113/63; PULSE 89; RESP 18; O2SAT 92
[2025-01-28 10:22] VITALS: BP 118/65; PULSE 80; RESP 18; O2SAT 94
--- NOTE | 2025-01-28 10:50 | ANE.PACU2 ---
Inpatient post-anesthesia follow up: Airway intact: Yes Vital signs: Temperature 97.3 F Pulse Rate 80 Respiratory Rate 18 Blood Pressure 118/65 Pulse Oximetry 94 Oxygen Delivery Me thod Room Air Oxygen Flow Rate 10 Fraction of Inspir ed Oxygen Hydration adequate: Yes Nausea and vomiting: No Pain level: 1 Mental status: Baseline
== END 2025-01-28 10:50 | disposition home or self-care (01) ==
PROVIDERS: PCP Nurse Practitioner Family; Visit Provider Surgery
PROC: 0DJ08ZZ Inspection of Upper Intestinal Tract, Via Natural or Artificial Opening Endoscopic (ICD-10-PCS; principal; 2025-01-28 09:55)
DX: K44.9 Diaphragmatic hernia without obstruction or gangrene (principal); K29.30 Chronic superficial gastritis without bleeding; K21.00 Gastro-esophageal reflux disease with esophagitis, without bleeding; J45.909 Unspecified asthma, uncomplicated; E78.5 Hyperlipidemia, unspecified; E66.01 Morbid (severe) obesity due to excess calories; Z68.41 Body mass index [BMI] 40.0-44.9, adult; E03.9 Hypothyroidism, unspecified; M06.9 Rheumatoid arthritis, unspecified; Z86.73 Personal history of transient ischemic attack (TIA), and cerebral infarction without residual deficits; G62.9 Polyneuropathy, unspecified; G47.33 Obstructive sleep apnea (adult) (pediatric); Z79.899 Other long term (current) drug therapy; Z79.01 Long term (current) use of anticoagulants; Z79.890 Hormone replacement therapy; Z91.041 Radiographic dye allergy status; Z88.5 Allergy status to narcotic agent; Z88.0 Allergy status to penicillin; Z88.8 Allergy status to other drugs, medicaments and biological substances
CPT/HCPCS: 43239; 88305; 88342; J2704; J7040

== ENCOUNTER → 2025-03-23 14:22 | Outpatient (BNVA) | payer MEDICAID, SELFPAY | PROVIDERS: PCP Nurse Practitioner Family; Visit Provider Nurse Practitioner Family | DX: M25.521 Pain in right elbow (principal) | CPT/HCPCS: 73080 ==

== ENCOUNTER → 2025-03-30 10:07 | Outpatient (BNVA) | payer MEDICAID, SELFPAY | PROVIDERS: PCP Nurse Practitioner Family; Visit Provider Nurse Practitioner Family | DX: E03.9 Hypothyroidism, unspecified (principal); E55.9 Vitamin D deficiency, unspecified; R53.83 Other fatigue | CPT/HCPCS: 80053; 80061; 82306; 82607; 83036; 84443; 85025 ==

== ENCOUNTER → 2025-03-31 12:38 | Outpatient (BNVA) | payer MEDICAID, SELFPAY | PROVIDERS: PCP Nurse Practitioner Family; Visit Provider Internal Medicine Rheumatology | DX: Z79.899 Other long term (current) drug therapy (principal) | CPT/HCPCS: 36415; 82657; 86480; 86704; 86803; 87340 ==

== ENCOUNTER 2025-04-01 09:27 | Outpatient (CLI) | payer MEDICAID, SELFPAY ==
--- NOTE | 2025-04-01 10:00 | CT_ITS ---
WS: [id number] CT RIGHT ELBOW, NONCONTRAST HISTORY: M25.521 - Pain in right elbow Technique: All CT scans at [facility] use at least one of these dose optimization techniques: automated exposure control; mA and/or kV adjustment per patient size (includes targeted exams where dose is matched to clinical indication); or iterative reconstruction. DLP: 86.88 mGy.cm COMPARISON: Radiograph 03/23/2025 Normal alignment at the elbow joint. There is no osseous dislocation. No fractures are identified. No significant joint effusion. There is focal soft tissue edema posteriorly at the level of the olecranon consistent with a contusion. The adjacent bone is normal. No loose bodies. No muscle atrophy. CT/CT elbow RT wo con* [id number] IMPRESSION: 1. No RIGHT elbow fracture is identified by CT. 2. No joint effusion. 3. Soft tissue contusion posterior to the olecranon.
== END 2025-04-01 09:28 | disposition home or self-care (01) ==
PROVIDERS: PCP Nurse Practitioner Family; Visit Provider Nurse Practitioner Family
DX: M25.521 Pain in right elbow (principal); R60.9 Edema, unspecified; S50.01XA Contusion of right elbow, initial encounter; X58.XXXA Exposure to other specified factors, initial encounter
CPT/HCPCS: 73200

== ENCOUNTER 2025-04-09 09:56 | Outpatient (CLI) | payer MEDICAID, SELFPAY ==
--- NOTE | 2025-04-09 10:00 | MM_ITS ---
WS: [id number] BILATERAL SCREENING DIGITAL TOMOSYNTHESIS MAMMOGRAM WITH CAD HISTORY: SCREENING COMPARISON: 04/01/2024, 01/17/2023 Bilateral CC and MLO views with tomosynthesis and synthetic mammography submitted. Computer aided detection analyzed. Breast composition: There are scattered areas of fibroglandular density. No suspicious masses, microcalcifications or architectural distortion. Benign calcification central RIGHT breast. MM/MM scr BI tomosynthesis [id number] IMPRESSION: BI-RADS: 2 - Benign. FOLLOW UP: 1 Year Follow-up
== END 2025-04-09 09:57 | disposition home or self-care (01) ==
PROVIDERS: PCP Nurse Practitioner Family; Visit Provider Nurse Practitioner Family
DX: Z12.31 Encounter for screening mammogram for malignant neoplasm of breast (principal); R92.323 Mammographic fibroglandular density, bilateral breasts; R92.1 Mammographic calcification found on diagnostic imaging of breast
CPT/HCPCS: 77063; 77067

== ENCOUNTER → 2025-05-12 15:07 | Outpatient (BNVA) | payer MEDICAID, SELFPAY | PROVIDERS: PCP Nurse Practitioner Family; Visit Provider Podiatrist Foot & Ankle Surgery | DX: M25.572 Pain in left ankle and joints of left foot (principal); M76.72 Peroneal tendinitis, left leg; M95.8 Other specified acquired deformities of musculoskeletal system; M25.372 Other instability, left ankle; S93.492A Sprain of other ligament of left ankle, initial encounter; X58.XXXA Exposure to other specified factors, initial encounter | CPT/HCPCS: 73610 ==

== ENCOUNTER 2025-05-14 12:23 | Outpatient (CLI) | payer MEDICAID, SELFPAY ==
--- NOTE | 2025-05-14 13:00 | MR_ITS ---
WS: [id number] MRI LEFT ANKLE WITHOUT CONTRAST. COMPARISON: Prior MRI 04/25/2022, ankle radiographs 05/12/2025. Multiplanar, multisequence imaging is performed without contrast. No acute fracture. Osteochondral defect with subchondral edema in the mid tibial plafond measures 6 x 6 x 7 mm and is very similar in appearance to the prior study. No new subchondral edema or osteochondral defect identified. Joint space narrowing involving the midfoot, especially between the intermediate cuneiform and the second metatarsal. Similar findings on the prior study. Normal Achilles tendon. There is a very slight Nataliia deformity. No bursal distention of fluid. Normal peroneal tendons. Flexor hallucis longus, flexor digitorum longus and the posterior tibialis tendons are normal. Anterior tibialis tendon is normal. Extensor tendons are normal. Normal ankle syndesmosis. Normal anterior inferior and posterior inferior tibiofibular ligaments. Anterior talofibular ligament and the posterior talofibular ligament are normal. Normal T2 striations in the posterior talofibular ligament. Normal deltoid ligament. Normal calcaneofibular ligament. MR/MR ankle LT wo con* [id number] IMPRESSION: 1. Reidentified is the stable osteochondral defect with subchondral edema invo lving the mid tibial plafond. Defect measures 6 x 6 x 7 mm. 2. No loose body or joint effusion. 3. Normal Achilles tendon. 4. Midfoot arthropathy, especially involving the articulation between the inte rmediate cuneiform and the second metatarsal. 5. Normal ligaments and tendons. No tear or synovitis.
== END 2025-05-14 12:24 | disposition home or self-care (01) ==
LOC: RAD 12:25
PROVIDERS: PCP Nurse Practitioner Family; Visit Provider Podiatrist Foot & Ankle Surgery
DX: M76.72 Peroneal tendinitis, left leg (principal); M95.8 Other specified acquired deformities of musculoskeletal system; M25.372 Other instability, left ankle; S93.492A Sprain of other ligament of left ankle, initial encounter; M12.872 Other specific arthropathies, not elsewhere classified, left ankle and foot; X58.XXXA Exposure to other specified factors, initial encounter
CPT/HCPCS: 73721

== ENCOUNTER 2025-06-15 08:22 | Outpatient (CLI) | payer MEDICAID, SELFPAY ==
--- NOTE | 2025-06-15 08:45 | MR_ITS ---
WS: [id number] EXAMINATION: MR elbow RT wo con* [id number] ORDER DATE: 06/15/2025 8:40 AM HISTORY: right elbow pain/rule out olecrannon fracture TECHNIQUE: Axial T1, axial T2 fat sat, coronal T1, coronal proton density fat sat, coronal STIR, sagittal proton density fat sat, and axial fat sat 3D performed. FINDINGS: Normal trochlea and capitellum. Normal radial head. Normal coronoid process. Olecranon is normal in appearance. No acute appearing olecranon fractures. No edema in the olecranon. Distal quadriceps appears intact. Ulnar and radial collateral ligaments appear intact. No fluid collections. Tiny amount of subchondral cystic change in the capitellum. No other acute findings. MR/MR elbow RT wo con* [id number] IMPRESSION: No visualized acute olecranon fractures
== END 2025-06-15 08:23 | disposition home or self-care (01) ==
LOC: RAD 08:23
PROVIDERS: PCP Nurse Practitioner Family; Visit Provider Student in an Organized Health Care Education/Training Program
DX: M25.521 Pain in right elbow (principal); S52.021A Displaced fracture of olecranon process without intraarticular extension of right ulna, initial encounter for closed fracture; X58.XXXA Exposure to other specified factors, initial encounter
CPT/HCPCS: 73221

== ENCOUNTER → 2025-07-07 13:55 | Outpatient (BNVA) | payer MEDICAID, SELFPAY | PROVIDERS: PCP Nurse Practitioner Family; Visit Provider Nurse Practitioner Family | DX: E78.5 Hyperlipidemia, unspecified (principal); E55.9 Vitamin D deficiency, unspecified; E03.9 Hypothyroidism, unspecified; E66.01 Morbid (severe) obesity due to excess calories; Z68.41 Body mass index [BMI] 40.0-44.9, adult; Z79.899 Other long term (current) drug therapy | CPT/HCPCS: 80053; 80061; 82306; 82607; 83036; 83721; 84443; 85025 ==

== ENCOUNTER 2025-07-11 06:30 | Emergency (ER) | payer MEDICAID, SELFPAY ==
--- OUTSIDE RECORDS SUMMARY | 2025-04-22 08:15 | XMS_ITS ---
Author Organization [facility] Address [address] [place] [address] Care Team Providers Care Flight Attendant Ramp Name Role Phone Tracey Rodgers APRN Primary Care Provider Kevin Montejo [phone] REASON FOR VISIT Fatty Liver Encounters Encounter Location Date Provider Diagnosis [facility] [address] [place] [address] 04/22/2025 Kevin Jaquez Plan Of Treatment No Information Progress Notes * Neisha HARVEYeDOB:1965 ( 59 yo F)Acc No.[id number]:04/22/2025 Progress Notes Patient: Ryanne Tran Provider: Alejandra Jaquez APRN SHOEMAKING FINISHER-BC :1965 A ge:59 Y S ex:Female Date:04/22/2025 Address:[facility] [address] [id number] Pcp:Tracey Rodgers APRN Subjective: * Chief Complaints: * F atty Liver * Electronic signature of Hector Jaquez APRN-AVIATION MEDICINE SPECIALIST on 07/11/2025 at 06:35 AM CDT Sign off status: Pending * Provider: Alejandra Jaquez APRN SHOEMAKING FINISHER-BC Date: 0 04/22/2025 Generated for Angelica mitchell/Chanel/eTransmitting on: 1 06:35 AM CDT
--- OUTSIDE RECORDS SUMMARY | 2025-07-11 06:35 | XMS_ITS | Clinical Summary ---
Author Organization [employer] Address [address] [address] Salas: Epic Prelude ADT CALEB CALLES [address] Care Team Providers Care Compensation Expert Name Role Phone Unavailable Primary Care Provider Unavailabl e Allergies Active Allergy Reactions Criticality Noted Date Comments Aspirin Rash Low 05/23/2012 Gabapentin Headache Low 11/21/2022 Hydrocodone-Acetaminophen Hypertension Medium 05/23/20 12 Oxycodone-Acetaminophen Rash Low 08/26/2012 Penicillins Rash Low 05/23/2012 Medications traMADoL (ULTRAM) 50 mg tablet Take 1 Tab (50 mg) by mouth every 6 hours as needed for Pain. 20 Tablet None 5 Active Eliquis 5 mg tablet Take 5 mg by mouth 2 times daily. 3 Active atorvastatin (LIPITOR) 40 mg tablet Take 40 mg by mouth daily. 3 Active hydrOXYchloroQU INE (PLAQUENIL) 200 mg tablet Take 200 mg by mouth 2 times daily. 3 Active levothyroxine 75 mcg tablet Take 75 mcg by mouth daily. 3 Active lidocaine (LIDODERM) 5 % Adhesive Patch, Medicated APPLY ONE PATCH TOPICALLY TO CLEAN, DRY SKIN. LEAVE ON FOR 12 HOURS THEN REMOVE. MUST WAIT AT LEAST 12 HOURS BEFORE APPLYING PATCH(ES) AGAIN. 2 Active omeprazole (PriLOSEC) 20 mg Capsule, Delayed Release(E.C.) Take 20 mg by mouth 2 times daily. 3 Active pantoprazole (PROTONIX) 40 mg Tablet, Delayed Release (E.C.) Take 40 mg by mouth daily. 3 Active predniSONE (DELTASONE) 5 mg tablet TAKE 1 TO 2 TABLETS BY MOUTH ONCE DAILY 3 Active pregabalin (LYRICA) 150 mg Capsule Take 150 mg by mouth 2 times daily. 3 Active traZODone (DESYREL) 50 mg tablet Take 50 mg by mouth daily at bedtime. Active leflunomide (ARAVA) 10 mg tablet Take 10 mg by mouth daily. 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 Gender Identity Not on file Sexual Orientation Not on file Last Filed Vital Signs Vital Sign Reading Time Taken Comments Blood Pressure 122/78 02/01/2023 10:56 AM CDT Pulse 90 02/07/2015 3:50 PM CDT Temperature 36.7 C (98.1 F) 02/07/2015 1:55 PM CDT Respiratory Rate 18 02/07/2015 4:30 PM CDT Oxygen Saturation - - Inhaled Oxygen Concentration - - Weight 104.8 kg (231 lb) 02/01/2023 10:56 AM CDT Height 160 cm (5' 3 ) 02/01/2023 10:56 AM CDT Body Mass Index 40.92 02/01/2023 10:56 AM CDT Plan of Treatment Health Maintenance Due Date Last Done Comments DTAP/TDAP/TD VACCINES (1 - Tdap) 1982 ZOSTER VACCINE (1 of 2) 1982 HPV/Cotest (21-29) 1984 CERVICAL CANCER SCREENING 1993 HPV/Cotest (30-65) 1993 PAP SMEAR 1993 BREAST CANCER SCREENING 2003 COLORECTAL SCREENING 2008 Colorectal Cancer Screening 2008 FIT-DNA Q 3 years 2008 FIT/FOBT Q 1 year 2008 Flex Sig/CT Colonography Q 5 years 2008 RSV VACCINE (60+ or ) (1 - Risk 50-74 years 1-dose series) 2013 INFLUENZA VACCINE (#1) 2025 Insurance [facility] PLAN [facility] [id number]
--- OUTSIDE RECORDS SUMMARY | 2025-07-11 06:35 | XMS_ITS | Patient Health Record ---
Author Organization [facility] Address [address] [place] [address] Care Team Providers Care Supervisor Cereal Name Role Phone Tracey Rodgers APRN Primary Care Provider Kevin Montejo [phone] Reason For Referral No Information Plan Of Treatment No Information Insurance Providers Payer Name Payer Address Payer Phone Subscriber Number Group Number Insured Name Patient Relationship to Insured Coverage Start Date Coverage End Date [facility] COMMUNITY PLAN [address] [place] [address] [id number] Ryanne Harvey Self - patient is the insured
--- NOTE | 2025-07-11 06:45 | ECG_ITS ---
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
[2025-07-11 06:51] VITALS: BP 129/83; PULSE 117; RESP 20; TEMP 37.3; O2SAT 96; BMI 39.1
[2025-07-11 07:35] LABS: Hematocrit 43.7 % (36-47); Hemoglobin 14.10 g/dL (11.27-16.99); Mean Corpuscular HGB Conc 32.3 g/dL (30-55); Mean Corpuscular Hemoglobin 27.0 pg (27-33); Mean Corpuscular Volume 83.6 fl (85-98); Nucleated Red Blood Cells % 0 %; Platelet Count 326 10^3/cmm (157-399); Red Blood Count 5.23 10^6/uL (3.85-5.65); White Blood Count 16.62 10^3/uL (3.29-11.43)
[2025-07-11 07:51] LABS: Alanine Aminotransferase 44 U/L (0-33); Albumin Level 4.2 g/dL (3.5-5.2); Alkaline Phosphatase 140 U/L (35-105); Anion Gap 18.9 (5-19); Aspartate Amino Transferase 66 U/L (0-32); Blood Urea Nitrogen 12 mg/dL (8-23); Calcium 9.8 mg/dL (8.5-10.5); Carbon Dioxide 23 mmol/L (22-29); Chloride 97 mmol/L (98-107); Creatinine Clr Calc Pharmacy 107.0788; Globulin 3.3 g/dL (1.3-4.6); Glucose 166 mg/dL (65-115); Osmolality Calculated 284 mOsm/kg (285-295); Potassium 3.9 mmol/L (3.5-5.1); Sodium 135 mmol/L (136-145); Total Protein 7.5 g/dL (6.6-8.7)
--- NOTE | 2025-07-11 08:13 | ED_ITS ---
HPI - Nausea/Vomiting/Diarrhea 2 General: Chief complaint: Nausea/Vomiting/Diarrhea Stated complaint: NV Time Seen by Provider: 07/11/25 08:02 History of Present Illness: 59-year-old female presents emergency ro om planing nausea vomiting. Abdominal pain began overnight she intermittently has a trouble for some time. Her is at the bedside is adamant that she has a hiatal hernia that is about to rupture. They have been referred to [place] and subsequently to [place] there is no plan for surgery at this point from her description they are still evaluating it. She does have a history of chronic transaminitis due to Hepatic steatosis. Previously had a gallbladder evaluation which was negative. She denies any relievers was there is chills dysuria urgency or frequency no chest pain or shortness of breath Associated nausea: Yes Associated symtoms: Reports nausea; Denies chest pain or dysuria Related Data Home Medications ?Medication ?Instructions ?Recorded ?Confirmed lidocaine 5 % topical patch 1 patch topical DAILY PRN Pain 07/18/22 05/27/25 (Lidoderm) meclizine 25 mg tablet 12.5 - 25 mg PO TID 10/17/24 05/27/25 Previous Rx's ?Medication ?Instructions ?Recorded tizanidine 4 mg tablet 4 mg PO BID PRN muscle spast icity 01/09/25 #60 tabs epinephrine 0.3 mg/0.3 mL 0.3 mg (0.3 mL) IM ONCE PRN 01/27/25 injection, auto-injector (EpiPen anaphylaxis #2 ea 2-Jad) levalbuterol tartrate 45 2 inh inhalation Q6H PRN katia rtness 02/10/25 mcg/actuation aerosol inhaler of breath or wheezing #1 5 grams (Xopenex HFA) apixaban 5 mg tablet (Eliquis) 5 mg PO BID #180 tabs 0 03/30/25 atorvastatin 80 mg tablet 80 mg PO DAILY #90 tabs 03/17 01/09 duloxetine 30 mg capsule,delayed 30 mg PO DAILY #90 ca ps 03/30/25 release propranolol 10 mg tablet See Rx Instructions .Route 0 03/30/25 .COMPLEX #60 tabs pantoprazole 40 mg tablet,delayed 40 mg PO BID #180 ta bs 03/31/25 release prednisone 10 mg tablet See Rx Instructions .Route 0 03/31/25 .COMPLEX joint pain #90 tabs etanercept 50 mg/mL (1 mL) 50 mg SUBCUT .Q7days #4 mL 04/07/25 subcutaneous pen injector (Enbrel SureClick) ropinirole 1 mg tablet See Rx Instructions .Route 0 06/05/25 .COMPLEX #30 tabs sucralfate 100 mg/mL oral See Rx Instructions .Route 1 suspension .COMPLEX #500 mL levofloxacin 750 mg tablet 750 mg PO DAILY 7 days #7 t abs 07/11/25 ondansetron HCl 4 mg tablet 4 mg PO Q6H PRN nausea and 07/11/25 vomiting #20 tabs levothyroxine 125 mcg capsule 125 mcg PO DAILY #90 cap s 07/14/25 Allergies Allergy/AdvReac Type Severity Reaction Status Date / Time iodine Allergy Severe ALGY-Anaphy Verified 05/27/25 09:32 laxis acetaminophen (From Percocet) Allergy itching Verified 05/27/25 09:32 all over bad aspirin Allergy ALGY-Hives Verified 05/27/25 09:32 gabapentin Allergy ADR-Migrain Verified 05/27/25 09:32 e hydrocodone (From Vicodin) Allergy Unknown Verified 05/27/25 09:32 NSAIDS (Non-Steroidal Allergy ADR-Nausea Verified 05/27/25 09:32 Anti-Inflamma oxycodone (From Percocet) Allergy ALGY-Hives Verified 05/27/25 09:32 Penicillins Allergy ALGY-Rash Verified 05/27/25 09:32 Review of Systems 2 Const: Denies: fever(s) or chills Card: Denies: chest pain Resp: Denies: dyspnea GI: Reports: abdominal pain, nausea and vomiting; Denies: hematemesis or coffee ground emesis : Denies: dysuria, urinary frequency or urinary urgency Musc: Denies: neck pain or back pain Skin/Breast: Denies: rash PFSH ED 2 PFSH: Medical History Hiatal hernia Transaminitis Immunization counseling High risk medication use Seronegative rheumatoid arthritis of both hands TAMMY (obstructive sleep apnea) Vitamin D deficiency Pulmonary embolism History of nephrolithiasis CVA (cerebral vascular accident) DJD (degenerative joint disease) Rheumatoid arthritis Obesity Hypothyroidism Chronic back pain Cervicalgia Hyperlipemia Surgical History Hx of colonoscopy with polypectomy (01/27/22) History of rotator cuff surgery (06/13/22) Hx of appendectomy Hx of tubal ligation Family History Father , age 33 Cancer Other CAD (coronary artery disease) Diabetes Hypertension Rheumatoid arthritis Stroke Denies family history of Lupus Hyperlipidemia Chronic kidney disease (CKD) Social History Smoking and tobacco/nicotine status: never used tobacco/nicotine Second hand smoke exposure: Yes Alcohol intake: never Substance/Drug Use: never Lives independently: Yes Household members: spouse Housing: House Marital status: Current occupational status: unemployed Current occupational exposures/hazards: No Current gender identity: Female Physical Exam 2 Const: GENERAL APPEARANCE: cooperative ORIENTATION/CONSCIOUSNESS: Yes awake, Yes oriented to person, Yes oriented to place and Yes oriented to time HENMT: COMMON NORMALS: normocephalic, atraumatic and hearing grossly normal bilaterally HEAD & SCALP: normocephalic and atraumatic Resp: COMMON NORMALS: normal respiratory effort, No retractions, No use of accessory muscles and clear to auscultation bilaterally AUSCULTATION: clear to auscultation bilaterally Cardio: COMMON NORMALS: regular rate, regular rhythm and No murmurs present (Cardio) RATE: regular rate RHYTHM: regular rhythm GI: COMMON NORMALS: No hepatosplenomegaly present AUSCULTATION: Yes normoactive bowel sounds PALPATION: Yes Tenderness to palpation present (GI) (Diffuse), No Guarding due to palpation present (GI) and Yes No hepatosplenomegaly present Extremity: COMMON NORMALS: normal to inspection, capillary refill normal, no clubbing, cyanosis or edema, no calf tenderness and no pedal edema Neuro: SENSORIUM/ORIENTATION: Yes oriented to person, Yes oriented to place and Yes oriented to time Skin: COMMON NORMALS: no rashes or lesions noted GENERAL SKIN EXAM: no rashes or lesions noted Course 2 Vital Signs: Vital signs: Vital Signs Temperature 99.2 F 07/11/25 06:51 Pulse Rate 86 07/11/25 12:39 Respiratory Rate 18 07/11/25 10:06 Blood Pressure 108/61 07/11/25 12:39 Pulse Oximetry 93 07/11/25 12:39 Oxygen Delivery Me thod Room Air 07/11/25 12:39 MDM - Nausea/Vomiting/Diarrhea Medical Decision Making Patient has right lower lobe pneumonia. No other acute intra-abdominal process mild leukocytosis. Pneumonia is picked up at the base of the lungs on the CT chest x-ray itself does not show any acute findings. Nausea and vomiting has improved will discharge patient home. On levofloxacin 750 p.o. daily. Incidental finding of cystitis as well. Nausea and vomiting is resolved with fluids and antiemetics. Recheck has any worsening or change symptoms. Medical Records I reviewed the patient's medical records. Lab Data I reviewed the patient's lab results. 07/11/25 07:29 07/11/25 07:29 Radiology Impressions Abdomen/Pelvis CT 07/11/25 08:33 IMPRESSION: 1. No acute intra-abdominal or intrapelvic process. 2. Right lung base airspace infiltrates. Chest X-Ray 07/11/25 08:33 IMPRESSION: No acute findings. Laboratory Results WBC 16.62 10^3/uL (3.29-11.43) H 07/11/25 07: RBC 5.23 10^6/uL (3.85-5.65) 07/11/25 07: Hgb 14.10 g/dL (11.27-16.99) 07/11/25 07: Hct 43.7 % (36-47) 07/11/25 07: MCV 83.6 fl (85-98) L 07/11/25 07: MCH 27.0 pg (27-33) 07/11/25 07: MCHC 32.3 g/dL (30-55) 07/11/25 07: RDW 14.3 % (12.1-15.1) 07/11/25 07: Plt Count 326 10^3/cmm (157-399) 07/11/25 07: MPV 9.7 fL (7.4-10.4) 07/11/25 07: Neut % (Auto) 86.8 % 07/11/25 07: Lymph % (Auto) 6.9 % 07/11/25 07:29 [place] % (Auto) 5.4 % 07/11/25 07: Eos % (Auto) 0.1 % 07/11/25 07: Baso % (Auto) 0.4 % 07/11/25: Neut # (Auto) 14.42 10^3/uL (1.8-7.7) H 07/11/25: Lymph # (Auto) 1.2 10^3/uL (0.8-4.8) 07/11/25 07: [place] # (Auto) 0.9 10^3/uL (0.2-0.9) 07/11/25 07: Eos # (Auto) 0.0 10^3/uL (0.0-0.8) 07/11/25 07: Baso # (Auto) 0.1 10^3/uL (0.0-0.1) 07/11/25 07: Nucleated RBC % (auto) 0 % 07/11/25: Nucleated RBCs # 0.0 /100WBC 07/11/25 07: Sodium 135 mmol/L (136-145) L 07/11/25 07: Potassium 3.9 mmol/L (3.5-5.1) 07/11/25: Chloride 97 mmol/L (98-107) L 07/11/25: Carbon Dioxide 23 mmol/L (22-29) 07/11/25 07: Anion Gap 18.9 (5-19) 07/11/25 07: BUN 12 mg/dL (8-23) 07/11/25 07: Creatinine 0.6 mg/dL (0.5-0.9) 07/11/25 07: GFR Calculation 101.6 mL/min (90-130) 07/11/25 07: Glucose 166 mg/dL (65-115) H 07/11/25 07: Calculated Osmolality 284 mOsm/kg (285-295) L 07/11/25 07: Lactic Acid 3.0 mmol/L (0.5-2.2) H 07/11/25 07: Lactic Acid (Sepsis) 2.3 mmol/L (0.5-2.2) H 07/11/25 10:03 Calcium 9.8 mg/dL (8.5-10.5) 07/11/25 07:29 Total Bilirubin 0.6 mg/dL (0.15-1.2) 07/11/25 07: AST 66 U/L (0-32) H 07/11/25 07:29 ALT 44 U/L (0-33) H 07/11/25 07:29 Alkaline Phosphatase 140 U/L (35-105) H 07/11/25 07:29 Total Protein 7.5 g/dL (6.6-8.7) 07/11/25 07: Albumin 4.2 g/dL (3.5-5.2) 07/11/25 07: Globulin 3.3 g/dL (1.3-4.6) 07/11/25 07:29 Urine Color Yellow (Yellow) 07/11/25 09:35 Urine Appearance Clear (CLEAR) 07/11/25 09:35 Urine pH 5.5 (5-7) 07/11/25 09:35 Ur Specific [place] 1.020 (1.005-1.030) 07/11/25 09:35 Urine Protein Trace (Negative) A 07/11/25 09:35 Urine Glucose (UA) Negative (Normal) 07/11/25 09:35 Urine Ketones Negative (Negative) 07/11/25 09:35 Urine Blood Negative (Negative) 07/11/25 09:35 Urine Nitrate Negative (Negative) 07/11/25 09:35 Urine Bilirubin Negative (Negative) 07/11/25 09:35 Urine Urobilinogen 0.2 mg/dL (Negative) 07/11/25 09:35 Ur Leukocyte Esterase 1+ (Negative) A 07/11/25 09:35 Urine RBC 0-2 /hpf (0-2) 07/11/25 09:35 Urine WBC 11-20 /hpf (0-5) H 07/11/25 09:35 Ur Squamous Epith Cells 0-5 /hpf (0-5) 07/11/25 09:35 Amorphous Sediment Not Reportable 07/11/25 09:35 Urine Bacteria None seen /hpf (NONE) 07/11/25 09:35 Hyaline Casts 0-4 /lpf H 07/11/25 09:35 Influenza A (PCR) Negative (Negative) 07/11/25 10:03 Influenza Type B (PCR) Negative (Negative) 07/11/25 10:03 RSV (PCR) Negative (Negative) 07/11/25 10:03 SARS-CoV-2 (PCR) Negative (Negative) 07/11/25 10:03 All radiology interpretation(s) finalized by discharge EKG Data EKG 1: I personally reviewed and interpreted this EKG as follows: Interpretation: EKG 07/11/2025 6:58 AM sinus tachycardia nonspecific ST changes rate of 127. [place] 156 QTc [address] changes noted compared to EKG 05/28/2024 no significant change Discharge Plan Discharge Patient Disposition: Home Clinical Impression: Right lower lobe pneumonia, Cystitis Condition: Stable Prescriptions: New levofloxacin 750 mg tablet 750 mg PO DAILY 7 Days Qty: 7 0RF ondansetron HCl 4 mg tablet 4 mg PO Q6H PRN (Reason: nausea and vomiting) Qty: 20 0RF No Action pantoprazole 40 mg tablet,delayed release (DR/EC) 40 mg PO BID Qty: 180 1RF prednisone 10 mg tablet See Rx Instructions .Route .COMPLEX Qty: 90 1RF Rx Instructions: take 4 tabs daily x7days, then 3tabs QD x7days, 2tab QD x7days, 1.5 tab QD x7days, 1tab QD x7days, then 0.5tab every day lidocaine [Lidoderm] 5 % adhesive patch,medicated 1 patch topical DAILY PRN (Reason: Pain) Rx Instructions: leave on for 12 hours, then off for 12 hours. tizanidine 4 mg tablet 4 mg PO BID PRN (Reason: muscle spasticity) Qty: 60 0RF duloxetine 30 mg capsule,delayed release(DR/EC) 30 mg PO DAILY Qty: 90 1RF Rx Instructions: Take 1 capsule by mouth once daily atorvastatin 80 mg tablet 80 mg PO DAILY Qty: 90 1RF Rx Instructions: Take 1 tablet by mouth once daily propranolol 10 mg tablet See Rx Instructions .ROUTE .COMPLEX Qty: 60 5RF Dose Instruction: Take 1 tablet by mouth twice daily Rx Instructions: Take 1 tablet by mouth twice daily Eliquis 5 mg tablet 5 mg PO BID Qty: 180 1RF Rx Instructions: Take 1 tablet by mouth twice daily epinephrine [EpiPen 2-Jad] 0.3 mg/0.3 mL auto-injector 0.3 mg IM ONCE PRN (Reason: anaphylaxis) Qty: 2 0RF levalbuterol tartrate [Xopenex HFA] 45 mcg/actuation HFA aerosol inhaler 2 inh inhalation Q6H PRN (Reason: shortness of breath or wheezing) Qty: 15 0RF Enbrel SureClick 50 mg/mL (1 mL) pen injector 50 mg SUBCUT .Q7days Qty: 4 5RF ropinirole 1 mg tablet See Rx Instructions .ROUTE .COMPLEX Qty: 30 2RF Dose Instruction: TAKE 1 TABLET BY MOUTH ONCE DAILY AT BEDTIME Rx Instructions: TAKE 1 TABLET BY MOUTH ONCE DAILY AT BEDTIME sucralfate 100 mg/mL suspension See Rx Instructions .ROUTE .COMPLEX Qty: 500 0RF Dose Instruction: TAKE 10 ML BY MOUTH TWICE DAILY Rx Instructions: TAKE 10 ML BY MOUTH TWICE DAILY levothyroxine 125 mcg capsule 125 mcg PO DAILY Qty: 90 0RF meclizine 25 mg tablet 12.5 - 25 mg PO TID Rx Instructions: TAKE 1/2 TO 1 (ONE-HALF TO ONE) TABLET BY MOUTH THREE TIMES DAILY Discharge Orders: Discharge ED (Routine); Ordered 07/11/25 Ordered By: Tanner Borja Referrals: Tracey Rodgers FNP [Primary Care Provider, Family Practice] Patient Instructions: Opioid Safety, Pain Management, Patient Portal & [place] Instructions Activity Restrictions/Additional Instructions: Thank you for choosing [facility] for your healthcare needs today. It is very important that you follow up as instructed or that you return to the Emergency Department should you have concerns or if your condition changes or worsens in any way. Emergency department visits are focused on emergent conditions, in some cases you may require further evaluation on an outpatient basis. You are seen in the emergency room with complaint of nausea vomiting. CT of your abdomen did not show any acute abnormalities. It did catch a small pneumonia in the lower part of your right lung. Your white count is low mildly elevated. You also had a mild bladder infection. Will discharge you home with oral antibiotics to begin tomorrow. Additionally you were given medicines for nausea vomiting recommend clear liquid diet for the next 24 to 48 hours then advance as tolerated. (Please note that included in your discharge packet is information concerning opioid safety and pain management. This information is given to all patients were discharged from the ER regardless of their discharge diagnosis or the medicines they usually take or are prescribed.) Print Language: Austrian Coding Level of Care Code ED Senior Sql Server Database Developer for Edgar Abdi
--- NOTE | 2025-07-11 08:33 | XRR_ITS ---
PROCEDURE INFORMATION: Exam: XR Chest Exam date and time: 07/11/2025 8:44 AM Age: 59 years old Clinical indication: Cough and dyspnea; Additional info: Dyspnea/cough TECHNIQUE: Imaging protocol: Radiologic exam of the chest. Views: 1 view. COMPARISON: CT angio chest PE protcl [id number] 07/25/2022 10:28 AM FINDINGS: Lungs: Unremarkable. No consolidation. Pleural spaces: Unremarkable. No pleural effusion. No pneumothorax. Heart/Mediastinum: Unremarkable. No cardiomegaly. Bones/joints: Right proximal humerus enchondroma. XR/XR chest 1V portable [id number] IMPRESSION: No acute findings.
--- NOTE | 2025-07-11 08:33 | CTR_ITS ---
PROCEDURE INFORMATION: Exam: CT Abdomen And Pelvis Without Contrast Exam date and time: 07/11/2025 8:45 AM Age: 59 years old Clinical indication: Abdominal pain; Localized; Upper; Prior surgery; Surgery date: 6+ months; Surgery type: Appy, tubal TECHNIQUE: Imaging protocol: Computed tomography of the abdomen and pelvis without contrast. Radiation optimization: All CT scans at this facility use at least one of these dose optimization techniques: automated exposure control; mA and/or kV adjustment per patient size (includes targeted exams where dose is matched to clinical indication); or iterative reconstruction. COMPARISON: MR MRCP [id number] 10/20/2022 9:51 AM RADIATION DOSE METRICS: Total DLP (mGy-cm): 1101.99 FINDINGS: Lungs: Right lung base ground-glass opacities of the right lung base of an infectious/inflammatory etiology. Liver: Mild hepatic steatosis and mild hepatomegaly. Gallbladder and biliary ducts: Normal. No calcified stones. No ductal dilation. Pancreas: Normal. No ductal dilation. Spleen: Normal. No splenomegaly. Adrenal glands: Normal. No mass. Kidneys and ureters: Normal. No hydronephrosis. Stomach and bowel: Moderate amount of retained stool in the colon from constipation. Appendix: No evidence of appendicitis. Intraperitoneal space: Unremarkable. No free air. No significant fluid collection. Vasculature: Unremarkable. No abdominal aortic aneurysm. Lymph nodes: Unremarkable. No enlarged lymph nodes. Urinary bladder: Unremarkable as visualized. Reproductive: Unremarkable as visualized. Bones/joints: Unremarkable. No acute fracture. Soft tissues: Unremarkable. CT/CT abdomen pelvis wo con [id number] IMPRESSION: 1. No acute intra-abdominal or intrapelvic process. 2. Right lung base airspace infiltrates.
[2025-07-11] MEDS: ondansetron 2 mg/ML SDV 2 mL 4 MG IVP (08:34)
[2025-07-11 09:55] VITALS: BP 135/83; PULSE 110; RESP 17; O2SAT 95
[2025-07-11] MEDS: cefTRIAXone 1,000 mg SDV 1000 MG IVP (09:57)
[2025-07-11 10:06] VITALS: BP 135/83; PULSE 110; RESP 18; O2SAT 94
[2025-07-11 10:15] LABS: Lactic Sepsis W/Reflex 3.0 mmol/L (0.5-2.2)
[2025-07-11 10:16] LABS: Glucose Urine UA Negative (Normal); Nitrate Urine Negative (Negative); Specific Gravity, Urine 1.020 (1.005-1.030)
[2025-07-11 10:17] LABS: Reflex Lactate Order REFLEX LACTIC ORDERD
[2025-07-11 10:21] LABS: Add Urine Microscopic? YES
[2025-07-11 10:32] LABS: Lactic Acid level (Lactate) 2.3 mmol/L (0.5-2.2)
[2025-07-11 10:45] LABS: Respiratory Syncytial Virus Ce NEGATIVE (Negative); SARS-CoV-2 PCR NEGATIVE (Negative)
[2025-07-11 12:39] VITALS: BP 108/61; PULSE 86; O2SAT 93
== END 2025-07-11 12:55 | disposition home or self-care (01) ==
PROVIDERS: Emergency Provider Family Medicine; PCP Nurse Practitioner Family
DX: J18.9 Pneumonia, unspecified organism (principal); N30.90 Cystitis, unspecified without hematuria; Z79.01 Long term (current) use of anticoagulants; Z11.52 Encounter for screening for COVID-19; E78.5 Hyperlipidemia, unspecified; Z86.73 Personal history of transient ischemic attack (TIA), and cerebral infarction without residual deficits
CPT/HCPCS: 36415; 71045; 74176; 80053; 81001; 83605; 85025; 87040; 87077; 87086; 87186; 87637; 93005; 96374; 96375; 99285; J0456; J0696; J0780; J2405; J7030; J7050

== ENCOUNTER 2025-07-18 16:11 | Emergency (ER) | payer MEDICARE, MEDICAID, SELFPAY ==
--- OUTSIDE RECORDS SUMMARY | 2025-04-22 08:15 | XMS_ITS ---
Author Organization [facility] Address [address] [place] [address] Care Team Providers Care Geneticist Name Role Phone Tracey Rodgers APRN Primary Care Provider Kevin Montejo [phone] REASON FOR VISIT Fatty Liver Encounters Encounter Location Date Provider Diagnosis [facility] [address] [place] [address] 04/22/2025 Kevin Jaquez Plan Of Treatment No Information Progress Notes * Neisha HARVEYeDOB:1965 ( 59 yo F)Acc No.[id number]:04/22/2025 Progress Notes Patient: Ryanne Tran Provider: Alejandra Jaquez APRN BLENDER HELPER-BC :1965 A ge:59 Y S ex:Female Date:04/22/2025 Address:[facility] [place] Pcp:Tracey Rodgers APRN Subjective: * Chief Complaints: * F atty Liver * Electronic signature of Hector Jaquez APRN-TOOL GRINDER SET UP OPERATOR GEAR on 07/18/2025 at 04:20 PM CDT Sign off status: Pending * Provider: Alejandra Jaquez APRN BLENDER HELPER-BC Date: 0 04/22/2025 Generated for Angelica mitchell/Chanel/eTransmitting on: 09/17/2024 04:20 PM CDT
[2025-07-18 16:20] VITALS: BP 126/92; PULSE 86; RESP 20; TEMP 36.7; O2SAT 99
--- OUTSIDE RECORDS SUMMARY | 2025-07-18 16:20 | XMS_ITS | Patient Health Record ---
Author Organization [facility] Address [address] [id number] Care Team Providers Care Refinery Operator Helper Cracking Unit Name Role Phone Tracey Rodgers APRN Primary Care Provider Kevin Montejo [phone] Reason For Referral No Information Plan Of Treatment No Information Insurance Providers Payer Name Payer Address Payer Phone Subscriber Number Group Number Insured Name Patient Relationship to Insured Coverage Start Date Coverage End Date [facility] COMMUNITY PLAN [address] [place] [phone] [id number] Ryanne Harvey Self - patient is the insured
--- OUTSIDE RECORDS SUMMARY | 2025-07-18 16:20 | XMS_ITS | Clinical Summary ---
Author Organization [employer] Address [address] 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
--- NOTE | 2025-07-18 16:40 | XRR_ITS ---
PROCEDURE INFORMATION: Exam: XR Chest Exam date and time: 07/18/2025 4:57 PM Age: 59 years old Clinical indication: Cough; Additional info: Dyspnea; Cough; Recent pneumonia diagnosis-little improvement after treatment. TECHNIQUE: Imaging protocol: Radiologic exam of the chest. Views: 1 view. COMPARISON: CR (CHEST, ) 07/11/2025 8:44 AM FINDINGS: Lungs: Pulmonary vessels are within normal limits. right basilar infiltrate. Left lung is clear. Pleural spaces: No pneumothorax. Heart/Mediastinum: Cardiomediastinal silhouette is within normal limits. Bones/joints: Calcified enchondroma involving the right proximal humerus. XR/XR chest 1V portable [id number] IMPRESSION: Right basilar infiltrate. Finding could represent pneumonic process. Imaging follow-up until resolution is advised.
--- NOTE | 2025-07-18 16:54 | ED_ITS ---
HPI - General Adult 2 General: Chief complaint: Upper Respiratory Infection Stated complaint: NV / Fever Time Seen by Provider: 07/18/25 16:40 History of Present Illness: 59-year-old female presents emergency ro om with persistent cough and generally not feeling well. She was seen 1 week ago had a right lower lobe pneumonia with a mild elevation of her white count was started on Levaquin 750 daily for. She has completed that course of antibiotics but is still having symptoms low-grade subjective fever nonproductive cough. She was also had a bladder infection at her last visit. Associated symptoms: Deny chest pain, dyspnea or rash Related Data Home Medications ?Medication ?Instructions ?Recorded ?Confirmed lidocaine 5 % topical patch 1 patch topical DAILY PRN Pain 07/18/22 07/22/25 (Lidoderm) Previous Rx's ?Medication ?Instructions ?Recorded tizanidine 4 mg tablet 4 mg PO BID PRN muscle spast icity 01/09/25 #60 tabs epinephrine 0.3 mg/0.3 mL 0.3 mg (0.3 mL) IM ONCE PRN 01/27/25 injection, auto-injector (EpiPen anaphylaxis #2 ea 2-Jad) levalbuterol tartrate 45 2 inh inhalation Q6H PRN katia rtness 02/10/25 mcg/actuation aerosol inhaler of breath or wheezing #1 5 grams (Xopenex HFA) apixaban 5 mg tablet (Eliquis) 5 mg PO BID #180 tabs 0 03/30/25 atorvastatin 80 mg tablet 80 mg PO DAILY #90 tabs 03/17 01/09 duloxetine 30 mg capsule,delayed 30 mg PO DAILY #90 ca ps 03/30/25 release propranolol 10 mg tablet See Rx Instructions .Route 0 03/30/25 .COMPLEX #60 tabs pantoprazole 40 mg tablet,delayed 40 mg PO BID #180 ta bs 03/31/25 release etanercept 50 mg/mL (1 mL) 50 mg SUBCUT .Q7days #4 mL 04/07/25 subcutaneous pen injector (Enbrel SureHarisick) ropinirole 1 mg tablet See Rx Instructions .Route 0 06/05/25 .COMPLEX #30 tabs sucralfate 100 mg/mL oral See Rx Instructions .Route 1 suspension .COMPLEX #500 mL ondansetron HCl 4 mg tablet 4 mg PO Q6H PRN nausea and 10/25/25 vomiting #20 tabs levothyroxine 125 mcg capsule 125 mcg PO DAILY #90 cap s 07/14/25 albuterol sulfate 90 mcg/actuation 2 inh inhalation Q4 H PRN shortness 07/18/25 aerosol inhaler of breath or wheezing #18 gr ams azithromycin 250 mg tablet See Rx Instructions PO .COM PLEX #6 07/18/25 (Zithromax Z-Jad) tabs cefdinir 300 mg capsule 300 mg PO BID #14 caps 07/18 Allergies Allergy/AdvReac Type Severity Reaction Status Date / Time iodine Allergy Severe ALGY-Anaphy Verified 07/22/25 10:43 laxis acetaminophen (From Percocet) Allergy itching Verified 07/22/25 10:43 all over bad aspirin Allergy ALGY-Hives Verified 07/22/25 10:43 gabapentin Allergy ADR-Migrain Verified 07/22/25 10:43 e hydrocodone (From Vicodin) Allergy Unknown Verified 07/22/25 10:43 NSAIDS (Non-Steroidal Allergy ADR-Nausea Verified 07/22/25 10:43 Anti-Inflamma oxycodone (From Percocet) Allergy ALGY-Hives Verified 07/22/25 10:43 Penicillins Allergy ALGY-Rash Verified 07/22/25 10:43 sulfamethoxazole (From Allergy vomiting Verified 07/22/25 10:43 Bactrim) and rash trimethoprim (From Bactrim) Allergy vomiting Verified 07/22/25 10:43 and rash Review of Systems 2 Const: Denies: fever(s) or chills Card: Denies: chest pain Resp: Reports: non-productive cough, wheezing and chest congestion; Denies: dyspnea GI: Denies: abdominal pain : Denies: dysuria, urinary frequency or urinary urgency Musc: Denies: neck pain or back pain Skin/Breast: Denies: rash PFSH ED 2 PFSH: Medical History Hiatal hernia Transaminitis Immunization counseling High risk medication use Seronegative rheumatoid arthritis of both hands TAMMY (obstructive sleep apnea) Vitamin D deficiency Pulmonary embolism History of nephrolithiasis CVA (cerebral vascular accident) DJD (degenerative joint disease) Rheumatoid arthritis Obesity Hypothyroidism Chronic back pain Cervicalgia Hyperlipemia Surgical History Hx of colonoscopy with polypectomy (01/27/22) History of rotator cuff surgery (06/13/22) Hx of appendectomy Hx of tubal ligation Family History Father , age 33 Cancer Other CAD (coronary artery disease) Diabetes Hypertension Rheumatoid arthritis Stroke Denies family history of Lupus Hyperlipidemia Chronic kidney disease (CKD) Social History Smoking and tobacco/nicotine status: never used tobacco/nicotine Second hand smoke exposure: Yes Alcohol intake: never Substance/Drug Use: never Lives independently: Yes Household members: spouse Housing: House Marital status: Current occupational status: unemployed Current occupational exposures/hazards: No Current gender identity: Female Physical Exam 2 Const: COMMON NORMALS: no acute distress GENERAL APPEARANCE: cooperative and comfortable ORIENTATION/CONSCIOUSNESS: Yes awake, Yes oriented to person, Yes oriented to place and Yes oriented to time HENMT: COMMON NORMALS: normocephalic, atraumatic and hearing grossly normal bilaterally HEAD & SCALP: normocephalic and atraumatic Resp: COMMON NORMALS: normal respiratory effort, No retractions, No use of accessory muscles and clear to auscultation bilaterally AUSCULTATION: clear to auscultation bilaterally Cardio: COMMON NORMALS: regular rate, regular rhythm and No murmurs present (Cardio) RATE: regular rate RHYTHM: regular rhythm GI: COMMON NORMALS: Soft to palpation and No hepatosplenomegaly present A USCULTATION: Yes normoactive bowel sounds PALPATION: Yes Soft to palpation, No Tenderness to palpation present (GI), No Guarding due to palpation present (GI) and Yes No hepatosplenomegaly present Extremity: COMMON NORMALS: normal to inspection, capillary refill normal, no clubbing, cyanosis or edema, no calf tenderness and no pedal edema Neuro: SENSORIUM/ORIENTATION: Yes oriented to person, Yes oriented to place and Yes oriented to time Skin: COMMON NORMALS: no rashes or lesions noted GENERAL SKIN EXAM: no rashes or lesions noted Course 2 Vital Signs: Vital signs: Vital Signs Temperature 98.0 F 07/18/25 16:20 Pulse Rate 81 07/18/25 18:42 Respiratory Rate 16 07/18/25 18:21 Blood Pressure 142/82 07/18/25 18:42 Pulse Oximetry 97 07/18/25 18:42 Oxygen Delivery Me thod Room Air 07/18/25 18:21 MDM - General Adult Medical Decision Making Persistent right lower lobe pneumonia. Will put her on cefdinir 300 twice daily for a week Z-Jad. Will also put her on a Medrol Dosepak continue to use albuterol as needed. Medical Records I reviewed the patient's medical records. Lab Data I reviewed the patient's lab results. 07/18/25 18:20 07/18/25 18:20 Radiology Impressions Chest X-Ray 07/18/25 16:40 IMPRESSION: Right basilar infiltrate. Finding could represent pneumonic process. Imaging follow-up until resolution is advised. Laboratory Results WBC 9.45 10^3/uL (3.29-11.43) 07/18/25 18:20 Corrected WBC Cancelled 07/18/25 18:00 RBC 5.25 10^6/uL (3.85-5.65) 07/18/25 18:20 Hgb 14.20 g/dL (11.27-16.99) 07/18/25 18:20 Hct 45.1 % (36-47) 07/18/25 18:20 MCV 85.9 fl (85-98) 07/18/25 18:20 MCH 27.0 pg (27-33) 07/18/25 18:20 MCHC 31.5 g/dL (30-55) 07/18/25 18:20 RDW 14.1 % (12.1-15.1) 07/18/25 18:20 Plt Count 313 10^3/cmm (157-399) 07/18/25 18:20 MPV 9.6 fL (7.4-10.4) 07/18/25 18:20 Gran % Cancelled 07/18/25 18:00 Neut % (Auto) 52.6 % 07/18/25 18:20 Lymph % (Auto) 33.8 % 07/18/25 18:20 [place] % (Auto) 8.8 % 07/18/25 18:20 Eos % (Auto) 3.7 % 07/18/25 18:20 Baso % (Auto) 0.6 % 07/18/25 18:20 Neut # (Auto) 4.97 10^3/uL (1.8-7.7) 07/18/25 18:20 Lymph # (Auto) 3.2 10^3/uL (0.8-4.8) 07/18/25 18:20 [place] # (Auto) 0.8 10^3/uL (0.2-0.9) 07/18/25 18:20 Eos # (Auto) 0.4 10^3/uL (0.0-0.8) 07/18/25 18:20 Baso # (Auto) 0.1 10^3/uL (0.0-0.1) 07/18/25 18:20 Absolute Gran (auto) Cancelled 07/18/25 18:00 Nucleated RBC % (auto) 0 % 07/18/25 18:20 Nucleated RBCs # 0.0 /100WBC 07/18/25 18:20 Sodium 139 mmol/L (136-145) 07/18/25 18:20 Potassium 3.7 mmol/L (3.5-5.1) 07/18/25 18:20 Chloride 103 mmol/L (98-107) 07/18/25 18:20 Carbon Dioxide 25 mmol/L (22-29) 07/18/25 18:20 Anion Gap 14.7 (5-19) 07/18/25 18:20 BUN 8 mg/dL (8-23) 07/18/25 18:20 Creatinine 0.5 mg/dL (0.5-0.9) 07/18/25 18:20 GFR Calculation 125.4 mL/min (90-130) 07/18/25 18:20 Glucose 111 mg/dL (65-115) 07/18/25 18:20 Calculated Osmolality 287 mOsm/kg (285-295) 07/18/25 18:20 Lactic Acid Cancelled 07/18/25 18:00 Lactate 1.5 mmol/L (0.5-2.2) 07/18/25 18:20 Calcium 10.2 mg/dL (8.5-10.5) 07/18/25 18:20 Total Bilirubin 0.3 mg/dL (0.15-1.2) 07/18/25 18:20 AST 57 U/L (0-32) H 07/18/25 18:20 ALT 44 U/L (0-33) H 07/18/25 18:20 Alkaline Phosphatase 133 U/L (35-105) H 07/18/25 18:20 Total Protein 7.5 g/dL (6.6-8.7) 07/18/25 18:20 Albumin 4.1 g/dL (3.5-5.2) 07/18/25 18:20 Globulin 3.4 g/dL (1.3-4.6) 07/18/25 18:20 Urine Color [place] (Yellow) A 07/18/25 17:48 Urine Appearance Clear (CLEAR) 07/18/25 17:48 Urine pH 5.5 (5-7) 07/18/25 17:48 Ur Specific [place] 1.012 (1.005-1.030) 07/18/25 17:48 Urine Protein Negative (Negative) 07/18/25 17:48 Urine Glucose (UA) Negative (Normal) 07/18/25 17:48 Urine Ketones Negative (Negative) 07/18/25 17:48 Urine Blood Negative (Negative) 07/18/25 17:48 Urine Nitrate Negative (Negative) 07/18/25 17:48 Urine Bilirubin Negative (Negative) 07/18/25 17:48 Urine Urobilinogen 0.2 mg/dL (Negative) 07/18/25 17:48 Ur Leukocyte Esterase Trace (Negative) A 07/18/25 17:48 Urine RBC 0-2 /hpf (0-2) 07/18/25 17:48 Urine WBC 0-5 /hpf (0-5) 07/18/25 17:48 Ur Squamous Epith Cells 0-5 /hpf (0-5) 07/18/25 17:48 Amorphous Sediment Not Reportable 07/18/25 17:48 Urine Bacteria None seen /hpf (NONE) 07/18/25 17:48 Hyaline Casts 0-4 /lpf H 07/18/25 17:48 Influenza A (PCR) Negative (Negative) 07/18/25 17:35 Influenza Type B (PCR) Negative (Negative) 07/18/25 17:35 RSV (PCR) Negative (Negative) 07/18/25 17:35 SARS-CoV-2 (PCR) Negative (Negative) 07/18/25 17:35 All radiology interpretation(s) finalized by discharge ED provider radiology interpretation(s): Mild right lower lobe pneumonia no other abnormality Discharge Plan Discharge Patient Disposition: Home Clinical Impression: Right lower lobe pneumonia Condition: Stable Prescriptions: New cefdinir 300 mg capsule 300 mg PO BID Qty: 14 0RF azithromycin [Zithromax Z-Jad] 250 mg tablet See Rx Instructions .ROUTE .COMPLEX Qty: 6 0RF Rx Instructions: For 250 mg dose pack: take 500 mg today (day 1), then 250 mg for 4 days (days 2-5) albuterol sulfate 90 mcg/actuation HFA aerosol inhaler 2 inh INHALATION Q4H PRN (Reason: shortness of breath or wheezing) Qty: 18 0RF No Action pantoprazole 40 mg tablet,delayed release (DR/EC) 40 mg PO BID Qty: 180 1RF lidocaine [Lidoderm] 5 % adhesive patch,medicated 1 patch topical DAILY PRN (Reason: Pain) Rx Instructions: leave on for 12 hours, then off for 12 hours. tizanidine 4 mg tablet 4 mg PO BID PRN (Reason: muscle spasticity) Qty: 60 0RF duloxetine 30 mg capsule,delayed release(DR/EC) 30 mg PO DAILY Qty: 90 1RF Rx Instructions: Take 1 capsule by mouth once daily atorvastatin 80 mg tablet 80 mg PO DAILY Qty: 90 1RF Rx Instructions: Take 1 tablet by mouth once daily propranolol 10 mg tablet See Rx Instructions .ROUTE .COMPLEX Qty: 60 5RF Dose Instruction: Take 1 tablet by mouth twice daily Rx Instructions: Take 1 tablet by mouth twice daily Eliquis 5 mg tablet 5 mg PO BID Qty: 180 1RF Rx Instructions: Take 1 tablet by mouth twice daily epinephrine [EpiPen 2-Jad] 0.3 mg/0.3 mL auto-injector 0.3 mg IM ONCE PRN (Reason: anaphylaxis) Qty: 2 0RF levalbuterol tartrate [Xopenex HFA] 45 mcg/actuation HFA aerosol inhaler 2 inh inhalation Q6H PRN (Reason: shortness of breath or wheezing) Qty: 15 0RF Enbrel SureClick 50 mg/mL (1 mL) pen injector 50 mg SUBCUT .Q7days Qty: 4 5RF ropinirole 1 mg tablet See Rx Instructions .ROUTE .COMPLEX Qty: 30 2RF Dose Instruction: TAKE 1 TABLET BY MOUTH ONCE DAILY AT BEDTIME Rx Instructions: TAKE 1 TABLET BY MOUTH ONCE DAILY AT BEDTIME sucralfate 100 mg/mL suspension See Rx Instructions .ROUTE .COMPLEX Qty: 500 0RF Dose Instruction: TAKE 10 ML BY MOUTH TWICE DAILY Rx Instructions: TAKE 10 ML BY MOUTH TWICE DAILY levothyroxine 125 mcg capsule 125 mcg PO DAILY Qty: 90 0RF ondansetron HCl 4 mg tablet 4 mg PO Q6H PRN (Reason: nausea and vomiting) Qty: 20 0RF Discharge Orders: Discharge ED (Routine); Ordered 07/18/25 Ordered By: Tanner Borja Referrals: Tracey Rodgers FNP [Primary Care Provider, Family Practice] Discharge Diet: Usual diet Discharge Activity: Increase activity as tolerated Patient Instructions: Opioid Safety, Pain Management, Patient Portal & [place] Instructions Activity Restrictions/Additional Instructions: Thank you for choosing [facility] for your healthcare needs today. It is very important that you follow up as instructed or that you return to the Emergency Department should you have concerns or if your condition changes or worsens in any way. Emergency department visits are focused on emergent conditions, in some cases you may require further evaluation on an outpatient basis. You were seen in the emergency room with complaints of persistent cough. Repeat chest x-ray shows you still have a residual right lower lobe pneumonia. Will put you on a second round of antibiotics recommend this time you take cefdinir 300 mg 1 tablet twice a day for a week along with Zithromax follow the instructions of 2 tablets today and then 1 tablet daily for 4 more days. Will also put you on a prednisone taper and continue to use albuterol as needed for relief of coughing and wheezing. (Please note that included in your discharge packet is information concerning opioid safety and pain management. This information is given to all patients were discharged from the ER regardless of their discharge diagnosis or the medicines they usually take or are prescribed.) Print Language: Gibraltarian Coding Level of Care Code ED Radius Grinder for Edgar Abdi
[2025-07-18 17:30] VITALS: BP 131/59; PULSE 82; O2SAT 95
[2025-07-18 17:56] LABS: Glucose Urine UA Negative (Normal); Nitrate Urine Negative (Negative); Specific Gravity, Urine 1.012 (1.005-1.030)
[2025-07-18 18:00] VITALS: PULSE 79; O2SAT 99
[2025-07-18 18:01] LABS: Add Urine Microscopic? YES
[2025-07-18 18:16] LABS: Respiratory Syncytial Virus Ce NEGATIVE (Negative); SARS-CoV-2 PCR NEGATIVE (Negative)
[2025-07-18 18:21] VITALS: PULSE 78; RESP 16; O2SAT 98
[2025-07-18 18:28] LABS: Hematocrit 45.1 % (36-47); Hemoglobin 14.20 g/dL (11.27-16.99); Mean Corpuscular HGB Conc 31.5 g/dL (30-55); Mean Corpuscular Hemoglobin 27.0 pg (27-33); Mean Corpuscular Volume 85.9 fl (85-98); Nucleated Red Blood Cells % 0 %; Platelet Count 313 10^3/cmm (157-399); Red Blood Count 5.25 10^6/uL (3.85-5.65); White Blood Count 9.45 10^3/uL (3.29-11.43)
[2025-07-18 18:30] VITALS: PULSE 76; O2SAT 98
[2025-07-18 18:42] VITALS: BP 142/82; PULSE 81; O2SAT 97
[2025-07-18 18:45] LABS: Alanine Aminotransferase 44 U/L (0-33); Albumin Level 4.1 g/dL (3.5-5.2); Alkaline Phosphatase 133 U/L (35-105); Anion Gap 14.7 (5-19); Aspartate Amino Transferase 57 U/L (0-32); Blood Urea Nitrogen 8 mg/dL (8-23); Calcium 10.2 mg/dL (8.5-10.5); Carbon Dioxide 25 mmol/L (22-29); Chloride 103 mmol/L (98-107); Creatinine Clr Calc Pharmacy 128.8325; Globulin 3.4 g/dL (1.3-4.6); Glucose 111 mg/dL (65-115); Lactate (Lactic Acid level) 1.5 mmol/L (0.5-2.2); Osmolality Calculated 287 mOsm/kg (285-295); Potassium 3.7 mmol/L (3.5-5.1); Sodium 139 mmol/L (136-145); Total Protein 7.5 g/dL (6.6-8.7)
== END 2025-07-18 18:43 | disposition home or self-care (01) ==
PROVIDERS: Emergency Provider Family Medicine; PCP Nurse Practitioner Family
DX: J18.9 Pneumonia, unspecified organism (principal); Z11.52 Encounter for screening for COVID-19; Z79.01 Long term (current) use of anticoagulants; E78.5 Hyperlipidemia, unspecified; Z86.73 Personal history of transient ischemic attack (TIA), and cerebral infarction without residual deficits
CPT/HCPCS: 36415; 71045; 80053; 81001; 83605; 85025; 87040; 87637; 94640; 99284; J9999

== ENCOUNTER 2025-08-17 10:49 | Outpatient (CLI) | payer MEDICARE, MEDICAID, SELFPAY ==
--- NOTE | 2025-08-17 11:15 | US_ITS ---
WS: [id number] THYROID ULTRASOUND HISTORY: E03.9 - Hypothyroidism, unspecified COMPARISON: None available. Right lobe: 1.7 cm x 2.1 cm x 4.0 cm (w x ap x l). Volume: 6.7 cm3. Mildly enlarged very heterogeneous and nodular thyroid. Superficial hypoechoic nodule in the mid RIGHT thyroid measures 1.0 x 0.7 x 1.0 cm. No echogenic foci. This is a well-circumscribed nodule. There are a few additional small scattered cysts or colloid cysts. Left lobe: 1.3 cm x 0.8 cm x 2.9 cm (w x ap x l). Volume: 1.5 cm3. Atrophic gland. Mildly heterogeneous but no nodules. Isthmus: 0.3 cm. There are few small benign cervical chain lymph nodes. US/US thyroid [id number] IMPRESSION: TI-RADS 4; mildly suspicious nodule. RIGHT thyroid nodule. Recommend yearly fol low-up evaluation for nodule of this size based on TI-RADS criteria. Follow-up recommended at 1, 2, 3 and 5 years.
== END 2025-08-17 10:50 | disposition home or self-care (01) ==
LOC: RAD 10:50
PROVIDERS: PCP Nurse Practitioner Family; Visit Provider Nurse Practitioner Family
DX: E03.9 Hypothyroidism, unspecified (principal); E04.2 Nontoxic multinodular goiter
CPT/HCPCS: 76536

== ENCOUNTER → 2025-08-20 12:11 | Outpatient (BNVA) | payer MEDICARE, MEDICAID, SELFPAY | PROVIDERS: PCP Nurse Practitioner Family; Visit Provider Podiatrist Foot & Ankle Surgery | DX: M25.372 Other instability, left ankle (principal); M76.72 Peroneal tendinitis, left leg; M95.8 Other specified acquired deformities of musculoskeletal system; S93.492A Sprain of other ligament of left ankle, initial encounter; X58.XXXA Exposure to other specified factors, initial encounter | CPT/HCPCS: 99213 ==

== ENCOUNTER 2025-09-03 08:07 | Outpatient (RCR) | payer MEDICARE, MEDICAID, SELFPAY | END 2025-09-16 23:59 | disposition home or self-care (01) | LOC: TPT 08:07 | PROVIDERS: PCP Nurse Practitioner Family; Visit Provider Podiatrist Foot & Ankle Surgery | DX: M25.372 Other instability, left ankle (principal) | CPT/HCPCS: 97110; 97140; 97161 ==